=== PATIENT | male | born 1930 | race Caucasian/White ===

== ENCOUNTER 2016-09-28 05:22 | Inpatient (IN) | payer OTHER, BC ==
[2016-09-24 10:35] VITALS: BMI 26.5
[2016-09-27 13:40] LABS: BASOPHIL 0.6 % (0-2.0); EOSINOPHIL 3.2 % (0-4.5); MCH 31.8 pg (25.7-33.7); MCHC 33.4 g/dl (32.0-35.9); MEAN CELL VOLUME 95.3 fl (80-96); MEAN PLT VOLUME 6.6 fl (7.5-11.1); NEUTROPHILS 74.2 % (42.8-82.8); PLATELET COUNT 159 K/MM3 (134-434); RDW 15.2 % (11.9-15.9); WHITE BLOOD COUNT 5.9 K/mm3 (4.0-10.0)
[2016-09-27 13:53] LABS: INR 1.08 (0.82-1.09); PROTHROMBIN TIME (PATIENT) 11.9 SEC (9.98-11.88)
[2016-09-27 14:18] LABS: ALBUMIN 3.5 g/dl (3.4-5.0); BILIRUBIN,TOTAL 0.5 mg/dL (0.2-1.0); CALCIUM 9.1 mg/dL (8.5-10.1); COCKROFT - GAULT 47.51; CREATININE 1.3 mg/dL (0.7-1.3); TOT PROT 6.5 g/dl (6.4-8.2)
[2016-09-28] MEDS ORDERED: MINERAL OIL 25 ML OIL ONE (11:50)
--- NOTE | 2016-09-28 12:22 | HP ---
History & Physical Update - History History: No Change - Physical Physical: No Change - Assessment Assessment: No Change - Plan Plan: No Change (Patient to undergo surgical procedure Debridement of sacral decubitus and flap closure with possible skin grafting)
[2016-09-28] MEDS ORDERED: MIDAZOLAM HCL 2 MG/2 ML SINGLE DOSE VIAL ONE (12:23)
[2016-09-28] MEDS ORDERED: PROPOFOL 20 ML ONE (12:24)
--- NOTE | 2016-09-28 12:28 | HP ---
Admitting History and Physical - Admission Chief Complaint: Grade IV sacral decubitus History Source: Patient - Smoking History Smoking history: Former smoker Have you smoked in the past 12 months: No - Alcohol/Substance Use Hx Alcohol Use: No Home Medications - Allergies Allergies/Adverse Reactions: Allergies Allergy/AdvReac Type Severity Reaction Status Date / Time No Known Allergies Allergy Verified 01/23/16 16:13 - Home Medications Home Medications: Ambulatory Orders Metoprolol Succinate [Toprol Xl] 50 mg PO DAILY 01/23/16 Nitroglycerin Patch [Nitro-Dur] 1 each TD DAILY 01/23/16 Ranolazine [Ranexa] 1 tab PO BID 01/23/16 Rosuvastatin Calcium [Crestor] 20 mg PO DAILY 01/23/16 Ferrous Sulfate 1 tab PO TID 05/26/16 Ascorbate Calcium [Vitamin C] 1,000 mg PO DAILY 09/24/16 Aspirin [ASA -] 81 mg PO DAILY 09/24/16 Folic Acid 0.4 mg PO DAILY 09/24/16 Physical Examination Vital Signs: Vital Signs Temperature 97.4 F L 09/28/16 10:05 Pulse Rate 60 09/28/16 10:05 Respiratory Rate 20 09/28/16 10:05 Blood Pressure 114/63 09/28/16 10:05 O2 Sat by Pulse Oximetry (%) 100 09/28/16 10:05 Labs: CBC, BMP 09/27/16 13:32 09/27/16 13:32 Assessment/Plan 86 year old with chronic Ulcer over the sacrum, non healing even after wound care for over 6 months, patient is ambulatory. Surgery needed to close the defect and hospital care till drainage decreases, need IV antibiotics for multiple factors including chronic wound, near anal area , SOCRATES in surgical site, elderly /age, chances of infection high, high risk patient with cardiac conditions
--- NOTE | 2016-09-28 12:28 | HP ---
Admitting History and Physical - Admission Chief Complaint: Non Healing Grade IV sacral decubitus History of Present Illness: 86 year old pleasant male with Grade IV sacral decubitus for over a year. Treated at [facility] Wound clinic with minimal progress. Patient scheduled for Excisional debridement of sacral decubitus and reconstruction with local flap and possible skin graft History Source: Patient Limitations to Obtaining History: No Limitations - Smoking History Smoking history: Former smoker Have you smoked in the past 12 months: No - Alcohol/Substance Use Hx Alcohol Use: No Home Medications - Allergies Allergies/Adverse Reactions: Allergies Allergy/AdvReac Type Severity Reaction Status Date / Time No Known Allergies Allergy Verified 01/23/16 16:13 - Home Medications Home Medications: Ambulatory Orders Metoprolol Succinate [Toprol Xl] 50 mg PO DAILY 01/23/16 Nitroglycerin Patch [Nitro-Dur] 1 each TD DAILY 01/23/16 Ranolazine [Ranexa] 1 tab PO BID 01/23/16 Rosuvastatin Calcium [Crestor] 20 mg PO DAILY 01/23/16 Ferrous Sulfate 1 tab PO TID 05/26/16 Ascorbate Calcium [Vitamin C] 1,000 mg PO DAILY 09/24/16 Aspirin [ASA -] 81 mg PO DAILY 09/24/16 Folic Acid 0.4 mg PO DAILY 09/24/16 Physical Examination Vital Signs: Vital Signs Temperature 97.4 F L 09/28/16 10:05 Pulse Rate 60 09/28/16 10:05 Respiratory Rate 20 09/28/16 10:05 Blood Pressure 114/63 09/28/16 10:05 O2 Sat by Pulse Oximetry (%) 100 09/28/16 10:05 Labs: CBC, BMP 09/27/16 13:32 09/27/16 13:32
[2016-09-28] MEDS ORDERED: LIDOCAINE HCL/PF 2% SDV 5ML VIAL ONE (12:36)
[2016-09-28] MEDS ORDERED: SODIUM CHLORIDE 0.9% P/F 10 ML VIAL IJ ONE (12:42)
[2016-09-28] MEDS ORDERED: ceFAZolin SODIUM 1 GM VIAL ONE (12:42)
[2016-09-28] MEDS ORDERED: ceFAZolin SODIUM 1 GM VIAL IVPB ONE (12:43)
[2016-09-28] MEDS ORDERED: DEXAMETHASONE SOD PHOSPHATE 4 MG/1 ML VIAL ONE (12:43)
[2016-09-28] MEDS ORDERED: BUPIVACAINE HCL/PF 0.25% (2.5MG/ML) 10 ML VIAL IJ ONE (13:16)
[2016-09-28] MEDS ORDERED: LIDOCAINE 1%/EPI 1:100000 (50 ML MULTI DOSE VIAL) PNB ONE (13:16)
[2016-09-28] MEDS ORDERED: LIDOCAINE HCL 1%, 10 MG/ML (20ML VIAL) IJ ONE ×2 (13:29)
--- NOTE | 2016-09-28 14:26 | PN ---
Teaching Attending Note Name of Resident: Scarlet Coker ATTENDING PHYSICIAN STATEMENT I saw and evaluated the patient. I reviewed the resident's note and discussed the case with the resident. I agree with the resident's findings and plan as documented. SUBJECTIVE: The patient is an 86 year old male with a significant past medical history of hypertension, hyperlipidemia, coronoary artery disease and a Grade IV sacral pressure ulcer for over a year, who is POD#0 s/p excisional debridement of sacral pressure ulcer and reconstruction with flap placement. OBJECTIVE: Vitals noted He is well appearing and in no acute distress See resident note for full exam ASSESSMENT AND PLAN: Post-operative care per Dr. Gould Will continue home medications for HTN, HLP, CAD See resident note for full details
[2016-09-28] MEDS ORDERED: METOPROLOL TARTRATE 5 MG/5 ML VIAL ONE (14:38)
[2016-09-28] MEDS ORDERED: ONDANSETRON 4 MG/2 ML VIAL IVPUSH PRN ×2 (15:01→16:48)
[2016-09-28] MEDS ORDERED: PROMETHAZINE HCL 25 MG/1 ML VIAL IVPUSH PRN ×2 (15:01→16:48)
[2016-09-28] MEDS ORDERED: LACTATED RINGERS SOLUTION 1,000 ML IV SCH ×2 (15:15→16:48)
[2016-09-28] MEDS: LABETALOL HCL 5 MG/1 ML (100MG/20 ML VIAL) IVPUSH PRN ×2 (15:15→15:40)
[2016-09-28] MEDS ORDERED: LABETALOL HCL 5 MG/1 ML (100MG/20 ML VIAL) IVPUSH ONE ×2 (15:45→16:48)
--- NOTE | 2016-09-28 16:47 | HP ---
CHIEF COMPLAINT: "i just had surgery" PCP: HISTORY OF PRESENT ILLNESS: This is an 86 yo M with PMH of chronic sacral ulcer, CAD s/p 2c CABG 2005 and stend 2013, thn, hld, prostate CA sp prostatectomy, who presented for debridement of sacral decubitus ulcer with a skin flap closure. Ulcer has been in place for 70 years due to a recurrent cyst in the area. It was grave IV in OR but not acutely infected. surgery went well w/o complications. Patients mobility status is ambulation with walker around the house. ies angina, orthopnea or palpitations. Recent Travel: denies PAST MEDICAL HISTORY: as above PAST SURGICAL HISTORY: CABG and coronary stent, hernia repair, Knee surgery, prostatectomy 2000 Social History: lives at home with Smoking: past smoker pack a day for 5 years as a teenager Alcohol: denies Drugs: denies Family History: AAA father, stomach CA mother. Allergies No Known Allergies Allergy (Verified 01/23/16 16:13) HOME MEDICATIONS: Home Medications Medication Instructions Recorded Metoprolol Succinate [Toprol Xl] 50 mg PO DAILY 01/23/16 Nitroglycerin Patch [Nitro-Dur] 1 each TD DAILY 01/23/16 Ranolazine [Ranexa] 1 tab PO BID 01/23/16 Rosuvastatin Calcium [Crestor] 20 mg PO DAILY 01/23/16 Ferrous Sulfate 1 tab PO TID 05/26/16 Ascorbate Calcium [Vitamin C] 1,000 mg PO DAILY 09/24/16 Aspirin [ASA -] 81 mg PO DAILY 09/24/16 Folic Acid 0.4 mg PO DAILY 09/24/16 REVIEW OF SYSTEMS CONSTITUTIONAL: Absent: fever, chills, diaphoresis, generalized weakness, malaise, loss of appetite, weight change HEENT: Absent: rhinorrhea, nasal congestion, throat pain CARDIOVASCULAR: Absent: chest pain, syncope, palpitations, irregular heart rate, lightheadedness , peripheral edema RESPIRATORY: Absent: cough, shortness of breath, orthopnea GASTROINTESTINAL: Absent: abdominal pain, abdominal distension, nausea, vomiting, diarrhea GENITOURINARY: Absent: dysuria MUSCULOSKELETAL: Absent: myalgia, arthralgia SKIN: Absent: rash, HEMATOLOGIC/IMMUNOLOGIC: Absent: easy bleeding, easy bruising ENDOCRINE: Absent: unexplained weight gain, unexplained weight loss NEUROLOGIC: Absent: headache, focal weakness or paresthesias, dizziness PSYCHIATRIC: Absent: anxiety PHYSICAL EXAMINATION Vital Signs - 24 hr 09/28/16 10:05 Temperature 97.4 F L Pulse Rate 60 Respiratory 20 Rate Blood Pressure 114/63 O2 Sat by Pulse 100 Oximetry (%) GENERAL: Awake, alert, and fully oriented, in no acute distress. HEAD: Normal with no signs of trauma. EYES: Pupils equal, round and reactive to light, extraocular movements intact, sclera anicteric, conjunctiva clear. No lid lag. EARS, NOSE, THROAT: Moist mucous membranes. NECK: supple without JVD LUNGS: Breath sounds equal, clear to auscultation bilaterally HEART: Regular rate and rhythm, normal S1 and S2 ABDOMEN: Soft, nontender, not distended, normoactive bowel sounds MUSCULOSKELETAL: No CVA tenderness. clean dressing on decubitus region. SOCRATES in place. UPPER EXTREMITIES: 2+ pulses, warm, well-perfused. No cyanosis. No clubbing. No peripheral edema. LOWER EXTREMITIES: 2+ pulses, warm, well-perfused. No calf tenderness. No peripheral edema. NEUROLOGICAL: Cranial nerves II-XII intact. Normal speech. PSYCHIATRIC: Cooperative. Good eye contact. Appropriate mood and affect. SKIN: Warm, dry ASSESSMENT/PLAN: This is an 86 yo M with PMH of chronic sacral ulcer, CAD s/p 2c CABG 2005 and stend 2013, thn, hld, prostate CA sp prostatectomy, who presented for debridement of sacral decubitus ulcer with a skin flap closure. Chronic stave IV sacral gecubitus ulcer -day 0 s/o surgical debridement with skin flap closure -not infected so sultures not sent -rocephin -low res diet -SOCRATES emptying q shift -monitor h/h -percocet for pain CAD -Asa 81 -NTG patch prn HTN -resume toprol xl 50 d -labetalol PRN for systolic BP >150 HLD resume lipitor 20 hs PPX Hep Dispo: obs med kwan Problem List - Problem (1) Sacral decubitus ulcer, stage IV Code(s): L89.154 - PRESSURE ULCER OF SACRAL REGION, STAGE 4 (2) CAD (coronary artery disease) Code(s): I25.10 - ATHSCL HEART DISEASE OF [place] CORONARY ARTERY W/O ANG PCTRS (3) HTN (hypertension) Code(s): I10 - ESSENTIAL (PRIMARY) HYPERTENSION (4) HLD (hyperlipidemia) Code(s): E78.5 - HYPERLIPIDEMIA, UNSPECIFIED Visit type - Emergency Visit Emergency Visit: No - New Patient This patient is new to me today: Yes Date on this admission: 09/28/16 - Critical Care Critical Care patient: No
[2016-09-28] MEDS ORDERED: OXYCODONE/APAP 5/325MG COMBO TABLET PO PRN (16:59)
[2016-09-28] MEDS ORDERED: ACETAMINOPHEN 325 MG TABLET (FP) PO PRN (17:21)
[2016-09-28] MEDS ORDERED: oxyCODONE HCL 5 MG TABLET PO PRN (17:21)
[2016-09-28] MEDS ORDERED: CEFAZOLIN (PRE-DOCKED) 50 ML IVPB ONE ×2 (17:41→23:22)
[2016-09-28] MEDS: CEFAZOLIN 1 GM/D5W 50 ML IVPB SCH (17:51)
[2016-09-28] MEDS ORDERED: RANOLAZINE E.R. 500 MG TABLET (FP) ONE (20:10)
[2016-09-28] MEDS: LACTATED RINGERS SOLUTION 1,000 ML IV SCH (21:59)
[2016-09-28] MEDS ORDERED: HEPARIN NA (PORCINE) 5,000 UNITS/ML 1ML VIAL SQ SCH (22:00)
--- NOTE | 2016-09-28 22:59 | EKG ---
Test Reason : Blood Pressure : / mmHG Vent. Rate : 066 BPM Atrial Rate : 234 BPM P-R Int : 000 ms QRS Dur : 086 ms QT Int : 428 ms P-R-T Axes : 000 020 043 degrees QTc Int : 448 ms PROBABLE SINUS RHYTHM ABNORMAL ECG NO PREVIOUS ECGS AVAILABLE Confirmed by GINGER MILLER MD ([id number]) on 09/28/2016 10:59:35 PM Referred By: JOHNSON ORO Confirmed By:GINGER MILLER MD
[2016-09-28] MEDS: RANOLAZINE E.R. 1,000 MG TABLET (FP) PO SCH (23:14)
[2016-09-28] MEDS: HEPARIN NA (PORCINE) 5,000 UNITS/ML 1ML VIAL SQ SCH (23:15)
[2016-09-28] MEDS: ROSUVASTATIN CA 10 MG TABLET (FP) PO SCH (23:29)
[2016-09-29] MEDS: CEFAZOLIN 1 GM/D5W 50 ML IVPB SCH (02:46)
[2016-09-29] MEDS: HEPARIN NA (PORCINE) 5,000 UNITS/ML 1ML VIAL SQ SCH ×2 (06:59→14:20)
[2016-09-29 07:52] LABS: MCH 32.6 pg (25.7-33.7); MCHC 34.5 g/dl (32.0-35.9); MEAN CELL VOLUME 94.5 fl (80-96); MEAN PLT VOLUME 7.4 fl (7.5-11.1); PLATELET COUNT 141 K/MM3 (134-434); RDW 14.9 % (11.9-15.9); WHITE BLOOD COUNT 8.4 K/mm3 (4.0-10.0)
[2016-09-29] MEDS: LACTATED RINGERS SOLUTION 1,000 ML IV SCH ×2 (08:01→18:15)
[2016-09-29 08:23] LABS: CALCIUM 8.1 mg/dL (8.5-10.1); COCKROFT - GAULT 61.77; PHOSPHOROUS 3.3 mg/dL (2.5-4.9)
[2016-09-29] MEDS ORDERED: RANOLAZINE E.R. 500 MG TABLET (FP) ONE ×2 (09:08→22:03)
[2016-09-29] MEDS ORDERED: PT OWN MED DRAWER 7, Y5N ONE ×2 (09:08→09:19)
[2016-09-29] MEDS: METOPROLOL SUCCINATE 50 MG TAB.SR.24H (FP) PO SCH (09:13)
[2016-09-29] MEDS: RANOLAZINE E.R. 1,000 MG TABLET (FP) PO SCH ×2 (09:13→22:06)
[2016-09-29] MEDS: ASPIRIN 81 MG CHEWABLE TABLETS PO SCH (09:14)
[2016-09-29] MEDS: NITROGLYCERIN 0.4 MG/HOUR TD PATCH TD SCH (09:14)
[2016-09-29] MEDS: CEFAZOLIN (PRE-DOCKED) 50 ML IVPB SCH ×2 (10:22→17:28)
--- NOTE | 2016-09-29 11:09 | PN ---
Progress Note (short form) - Note Progress Note: ANESTHESIOLOGY POST-OP CHECK 86M s/p sacral decubitus ulcer debridement and flap closure under general anesthesia, POD #1. No acute complaints. Denies pain, N/V. Tolerating PO, voiding. Vital Signs Temperature 98.4 F 09/29/16 06:00 Pulse Rate 75 09/29/16 06:00 Respiratory Rate 20 09/29/16 06:00 Blood Pressure 128/71 09/29/16 06:00 O2 Sat by Pulse Oximetry (%) 100 09/29/16 00:57 Active Medications Acetaminophen (Tylenol -) 325 mg PO Q6H PRN PRN Reason: PAIN Aspirin (Asa -) 81 mg PO DAILY [facility] Last Admin: 09/29/16 09:14 Dose: 81 mg Heparin Sodium (Porcine) (Heparin -) 5,000 unit SQ TID [facility] Last Admin: 09/29/16 06:59 Dose: 5,000 unit Lactated Ringer's (Lactated Ringers Solution) 1,000 mls @ 60 mls/hr IV ASDIR [facility] Last Admin: 09/29/16 08:01 Dose: 60 mls/hr Cefazolin Sodium (Ancef 1gm Ivpb (Pre-Docked)) 50 mls @ 100 mls/hr IVPB Q8H-IV [facility] Last Admin: 09/29/16 10:22 Dose: 100 mls/hr Labetalol HCl (Normodyne Injection -) 10 mg IVPUSH Q4H PRN PRN Reason: HYPERTENSION Last Admin: 09/28/16 15:40 Dose: 5 mg Metoprolol Succinate (Toprol Xl -) 50 mg PO DAILY [facility] Last Admin: 09/29/16 09:13 Dose: 50 mg Nitroglycerin (Nitro-Dur Patch -) 0.4 mg TD DAILY [facility] Last Admin: 09/29/16 09:14 Dose: 0.4 mg Oxycodone HCl (Roxicodone -) 5 mg PO Q6H PRN PRN Reason: PAIN SCALE 6-10 Last Admin: 09/28/16 23:25 Dose: 5 mg Ranolazine (Ranexa -) 1,000 mg PO BID [facility] Last Admin: 09/29/16 09:13 Dose: 1,000 mg Rosuvastatin Calcium (Crestor -) 20 mg PO HS [facility] Last Admin: 09/28/16 23:29 Dose: 20 mg Gen: Awake, alert No apparent anesthesia complications. Pain well controlled. Continue management as per primary team.
--- NOTE | 2016-09-29 14:16 | PN ---
Progress Note (short form) - Note Progress Note: Post Day 1 Awake awake, not in pain Slipped while standing on to bed No c/o pain Wound evaluated : suture line intact SOCRATES drainage noted 20+20+40+25 active Plan : Hold Heparin Avoid sitting stay on sides
--- NOTE | 2016-09-29 15:23 | PN ---
Physical Exam: SUBJECTIVE: Patient seen and examined Patient resting in bed NAD. afebrile and hemodynamically stable. no events. Denies pain. ambulating, good appetite. Denies sob, throat pain, chest pain, n/v , diarrhea, f/c. OBJECTIVE: Vital Signs Period Temp Pulse Resp BP Sys/Beaver Pulse Ox Last 24 Hr 96.1 F-98.7 F 62-75 16-20 122-167/68-95 99-100 GENERAL: Awake, alert, and fully oriented, in no acute distress. HEAD: Normal with no signs of trauma. EYES: Pupils equal, round and reactive to light, extraocular movements intact, sclera anicteric, conjunctiva clear. No lid lag. EARS, NOSE, THROAT: Moist mucous membranes. NECK: supple without JVD LUNGS: Breath sounds equal, clear to auscultation bilaterally HEART: Regular rate and rhythm, normal S1 and S2 ABDOMEN: Soft, nontender, not distended, normoactive bowel sounds MUSCULOSKELETAL: No CVA tenderness. clean dressing on decubitus region. SOCRATES in place with minimal sanguineous output. UPPER EXTREMITIES: 2+ pulses, warm, well-perfused. No cyanosis. No clubbing. No peripheral edema. LOWER EXTREMITIES: 2+ pulses, warm, well-perfused. No calf tenderness. No peripheral edema. NEUROLOGICAL: Cranial nerves II-XII intact. Normal speech. PSYCHIATRIC: Cooperative. Good eye contact. Appropriate mood and affect. SKIN: Warm, dry Laboratory Results - last 24 hr 09/29/16 09/29/16 06:30 06:30 WBC 8.4 D RBC 3.09 L Hgb 10.1 L D Hct 29.2 L D MCV 94.5 MCHC 34.5 RDW 14.9 Plt Count 141 MPV 7.4 L D Sodium 137 Potassium 4.9 Chloride 102 Carbon Dioxide 24 Anion Gap 11 BUN 23 H Creatinine 1.0 D Random Glucose 99 Calcium 8.1 L Phosphorus 3.3 Magnesium 2.0 Active Medications Generic Name Dose Route Start Last Admin Trade Name Freq PRN Reason Stop Dose Admin Acetaminophen 325 mg 09/28/16 17:21 Tylenol - PO Q6H PRN PAIN Aspirin 81 mg 09/29/16 10:00 09/29/16 09:14 Asa - PO 81 mg DAILY BRAULIO Administration Lactated Ringer's 1,000 mls @ 60 mls/hr 09/28/16 18:15 09/29/16 08:01 Lactated Ringers Solution IV 60 mls/hr ASDIR B[facility]ULIO Administration Cefazolin Sodium 50 mls @ 100 mls/hr 09/29/16 09:13 09/29/16 10:22 Ancef 1gm Ivpb (Pre-Docked) IVPB 100 mls/hr Q8H-IV [facility]IO Administration Labetalol HCl 10 mg 09/28/16 16:50 09/28/16 15:40 Normodyne Injection - IVPUSH 5 mg Q4H PRN Administration HYPERTENSION Metoprolol Succinate 50 mg 09/29/16 10:00 09/29/16 09:13 Toprol Xl - PO 50 mg DAILY BRAULIO Administration Nitroglycerin 0.4 mg 09/29/16 10:00 09/29/16 09:14 Nitro-Dur Patch - TD 0.4 mg DAILY BRAULIO Administration Oxycodone HCl 5 mg 09/28/16 17:21 09/28/16 23:25 Roxicodone - PO 5 mg Q6H PRN Administration PAIN SCALE 6-10 Ranolazine 1,000 mg 09/28/16 22:00 09/29/16 09:13 Ranexa - PO 1,000 mg BID BRAULIO Administration Rosuvastatin Calcium 20 mg 09/28/16 22:00 09/28/16 23:29 Crestor - PO 20 mg HS BRAULIO Administration ASSESSMENT/PLAN: This is an 86 yo M with PMH of chronic sacral ulcer, CAD s/p 2c CABG 2005 and stend 2013, thn, hld, prostate CA sp prostatectomy, who presented for debridement of sacral decubitus ulcer with a skin flap closure. Chronic stave IV sacral gecubitus ulcer -POD1 s/o surgical debridement with skin flap closure -h/h stable -IV cefazolin day 2 -low res diet -SOCRATES emptying q shift: 40 cc of sanguineous fluid per shift -to lie on side and not flat on back. -hold heparin -percocet for pain CAD -Asa 81 -NTG patch prn HTN -toprol xl 50 d HLD lipitor 20 hs PPX scd Dispo: [facility] Problem List - Problems (1) Sacral decubitus ulcer, stage IV Code(s): L89.154 - PRESSURE ULCER OF SACRAL REGION, STAGE 4 (2) CAD (coronary artery disease) Code(s): I25.10 - ATHSCL HEART DISEASE OF [place] CORONARY ARTERY W/O ANG PCTRS (3) HTN (hypertension) Code(s): I10 - ESSENTIAL (PRIMARY) HYPERTENSION (4) HLD (hyperlipidemia) Code(s): E78.5 - HYPERLIPIDEMIA, UNSPECIFIED Visit type - Emergency Visit Emergency Visit: No - New Patient This patient is new to me today: No - Critical Care Critical Care patient: No - Discharge Referral Referred to [facility] No
--- NOTE | 2016-09-29 16:25 | OP ---
DATE OF OPERATION: 09/28/2016 PREOPERATIVE DIAGNOSIS: Chronic wound grade 4 sacral decubitus ulcer. POSTOPERATIVE DIAGNOSIS: Chronic wound, sacral area, with excessive scar tissue. PROCEDURE: 1. Excision, sacral decubitus ulcer. 2. Reconstruction with a fasciocutaneous flap. SURGEON: Adalgisa Oro MD ANESTHESIA: General. HISTORY: The patient is an 86-year-old male seen in Wound Clinic for the last 6 months, has a chronic non-healing wound for the last 1 year. Patient, during his treatments in the Wound Clinic has undergone serial debridement including skin grafting, failed, including VAC, which did not succeed due to the very close proximity to anal area. Wound has been stuck in its present size for the last 3 months. PROCEDURE: Patient was brought to the operating room, transferred over to the table. At this time, time-out procedure was carried out. Once agreed, patient was turned to right lateral position on a beanbag. Area of lower back was washed and cleaned with Betadine soap and solution and then draped in a standard aseptic manner. Markings had been carried out prior to giving local anesthetic consisting of 1% lidocaine with epinephrine with 0.25% Marcaine, total of 40 mL was injected into the subcutaneous tissue in the sacral area. A 10 scalpel blade was used to excise the ulcer down to the periosteum. Excessive scar tissue was present in the entire sacral area, preventing the ulcer from healing. Hemostasis was secured with electrocautery. Dissection was carried out with 10 scalpel blade. A fasciocutaneous flap was then designed on his left buttock and gluteus vinny muscle. Fascia covering the vinny was then dissected off the muscle and rotated into a transposition flap. Defect measured over 8 x 5 cm x 3.5 cm in depth. Clinically there was no infection except for excessive scarring. A multilayered closure was undertaken for the fasciocutaneous flap using 0 Vicryl followed by 3-0 Vicryl. Final closure was with Dermabond. A SOCRATES drain was applied in the depth of the pocket and brought from the lowermost incision line. It was secured with 0 Prolene. Estimated blood loss was less than 50 mL. At the end of the procedure, suture and instrument recount was correct. The total surface area covered by the flap was over 20 cm sq. At the end of the procedure, circulation to the flap was satisfactory. Patient was transferred to a low-pressure bed and extubated, sent to the recovery room in a stable condition. He was given 1 g of Ancef prior to the surgery. ADALGISA ORO M.D. [id number]
--- NOTE | 2016-09-29 18:06 | PN ---
Teaching Attending Note Name of Resident: Scarlet Coker ATTENDING PHYSICIAN STATEMENT I saw and evaluated the patient. I reviewed the resident's note and discussed the case with the resident. I agree with the resident's findings and plan as documented. SUBJECTIVE: no fever or chills, no abd pain , no SOB , no CP . OBJECTIVE: NAD CV : RRR lungs : CTAB ext : no edema Sacral area with a clean dressing with SOCRATES drainage . ASSESSMENT AND PLAN: 86 y/o man with h/o HTN, HLP, CAD s/p CABG who presented with sacral decub ulcer and had flap reconstruction sx 1- Excision of stage IV decub ulcer with reconstruction with flap . POD 1 . doing well . wound care by Dr. Crespo. pain control Abx per surgery hold heparin due to bloody discharge IVF , might dc tomorrow 2- H/o HTN, HLP, CAD : cont home meds
[2016-09-29] MEDS: ROSUVASTATIN CA 10 MG TABLET (FP) PO SCH (22:05)
[2016-09-30] MEDS: CEFAZOLIN (PRE-DOCKED) 50 ML IVPB SCH ×3 (01:20→17:58)
[2016-09-30] MEDS: LACTATED RINGERS SOLUTION 1,000 ML IV SCH ×2 (01:44→17:58)
[2016-09-30 07:24] LABS: MCH 33.2 pg (25.7-33.7); MCHC 35.1 g/dl (32.0-35.9); MEAN CELL VOLUME 94.7 fl (80-96); MEAN PLT VOLUME 7.6 fl (7.5-11.1); PLATELET COUNT 118 K/MM3 (134-434); RDW 15.4 % (11.9-15.9); WHITE BLOOD COUNT 6.6 K/mm3 (4.0-10.0)
[2016-09-30] MEDS ORDERED: RANOLAZINE E.R. 500 MG TABLET (FP) ONE ×2 (09:28→21:07)
[2016-09-30] MEDS ORDERED: PT OWN MED DRAWER 7, Y5N ONE (09:29)
[2016-09-30] MEDS: RANOLAZINE E.R. 1,000 MG TABLET (FP) PO SCH ×2 (09:51→21:11)
[2016-09-30] MEDS: ASPIRIN 81 MG CHEWABLE TABLETS PO SCH (09:51)
[2016-09-30] MEDS: METOPROLOL SUCCINATE 50 MG TAB.SR.24H (FP) PO SCH (09:52)
[2016-09-30] MEDS: NITROGLYCERIN 0.4 MG/HOUR TD PATCH TD SCH (09:52)
--- NOTE | 2016-09-30 13:22 | PN ---
Teaching Attending Note Name of Resident: Scarlet Coker ATTENDING PHYSICIAN STATEMENT I saw and evaluated the patient. I reviewed the resident's note and discussed the case with the resident. I agree with the resident's findings and plan as documented. SUBJECTIVE: no fever or chills, no abd pain, no SOB or CP . pain is controlled with pain meds OBJECTIVE: NAD CV : RRR Lungs : CTAB Ext : no edema Sacral area with a clean dressing with SOCRATES drainage full of sanguinous fluid . ASSESSMENT AND PLAN: 86 y/o man with h/o HTN, HLP, CAD s/p CABG who presented with sacral decub ulcer and had flap reconstruction sx 1- Excision of stage IV decub ulcer with flap reconstruction. POD 2. wound care by Dr. Crespo. pain control Abx per surgery hold heparin due to bloody discharge dc IVF 2- H/o HTN, HLP, CAD: cont home meds
--- NOTE | 2016-09-30 13:59 | PN ---
Physical Exam: SUBJECTIVE: Patient seen and examined Patient resting in bed NAD. afebrile and hemodynamically stable. no events. SOCRATES output 115 yesterday and 55 overnight. Denies pain. ambulating, good appetite. Denies sob, throat pain, chest pain, n/v, diarrhea, f/c. OBJECTIVE: Vital Signs Period Temp Pulse Resp BP Sys/Beaver Pulse Ox Last 24 Hr 97.4 F-98.4 F 62-70 18-20 83-116/49-66 99-99 GENERAL: Awake, alert, and fully oriented, in no acute distress. HEAD: Normal with no signs of trauma. EYES: Pupils equal, round and reactive to light, extraocular movements intact, sclera anicteric, conjunctiva clear. No lid lag. EARS, NOSE, THROAT: Moist mucous membranes. NECK: supple without JVD LUNGS: Breath sounds equal, clear to auscultation bilaterally HEART: Regular rate and rhythm, normal S1 and S2 ABDOMEN: Soft, nontender, not distended, normoactive bowel sounds MUSCULOSKELETAL: No CVA tenderness. clean dressing on decubitus region. SOCRATES in place with sero sanguineous output. UPPER EXTREMITIES: 2+ pulses, warm, well-perfused. No cyanosis. No clubbing. No peripheral edema. LOWER EXTREMITIES: 2+ pulses, warm, well-perfused. No calf tenderness. No peripheral edema. NEUROLOGICAL: Cranial nerves II-XII intact. Normal speech. PSYCHIATRIC: Cooperative. Good eye contact. Appropriate mood and affect. SKIN: Warm, dry Laboratory Results - last 24 hr 09/30/16 06:10 WBC 6.6 RBC 2.91 L Hgb 9.7 L Hct 27.5 L MCV 94.7 MCHC 35.1 RDW 15.4 Plt Count 118 L MPV 7.6 Active Medications Generic Name Dose Route Start Last Admin Trade Name Freq PRN Reason Stop Dose Admin Acetaminophen 325 mg 09/28/16 17:21 Tylenol - PO Q6H PRN PAIN Aspirin 81 mg 09/29/16 10:00 09/30/16 09:51 Asa - PO 81 mg DAILY BRAULIO Administration Lactated Ringer's 1,000 mls @ 60 mls/hr 09/28/16 18:15 09/30/16 01:44 Lactated Ringers Solution IV 60 mls/hr ASDIR BRAULIO Administration Cefazolin Sodium 50 mls @ 100 mls/hr 09/29/16 09:13 09/30/16 09:51 Ancef 1gm Ivpb (Pre-Docked) IVPB 100 mls/hr Q8H-IV BRAULIO Administration Metoprolol Succinate 50 mg 09/29/16 10:00 09/30/16 09:52 Toprol Xl - PO 50 mg DAILY BRAULIO Administration Nitroglycerin 0.4 mg 09/29/16 10:00 09/30/16 09:52 Nitro-Dur Patch - TD Not Given DAILY BRAULIO Oxycodone HCl 5 mg 09/28/16 17:21 09/28/16 23:25 Roxicodone - PO 5 mg Q6H PRN Administration PAIN SCALE 6-10 Ranolazine 1,000 mg 09/28/16 22:00 09/30/16 09:51 Ranexa - PO 1,000 mg BID BRAULIO Administration Rosuvastatin Calcium 20 mg 09/28/16 22:00 09/29/16 22:05 Crestor - PO 20 mg HS BRAULIO Administration ASSESSMENT/PLAN: This is an 86 yo M with PMH of chronic sacral ulcer, CAD s/p 2c CABG 2005 and stend 2013, thn, hld, prostate CA sp prostatectomy, who presented for debridement of sacral decubitus ulcer with a skin flap closure. Chronic stave IV sacral gecubitus ulcer -POD2 s/o surgical debridement with skin flap closure -h/h stable -IV cefazolin day 2 -low res diet -SOCRATES emptying q shift: 55 cc of serosanguineous fluid overnight, 115 cc yesterday -to lie on side and not flat on back. -heparin held -percocet for pain -can stop IVF CAD -Asa 81 -NTG patch prn HTN -toprol xl 50 d HLD lipitor 20 hs PPX scd Dispo: [facility] Problem List - Problems (1) Sacral decubitus ulcer, stage IV Code(s): L89.154 - PRESSURE ULCER OF SACRAL REGION, STAGE 4 (2) CAD (coronary artery disease) Code(s): I25.10 - ATHSCL HEART DISEASE OF [place] CORONARY ARTERY W/O ANG PCTRS (3) HTN (hypertension) Code(s): I10 - ESSENTIAL (PRIMARY) HYPERTENSION (4) HLD (hyperlipidemia) Code(s): E78.5 - HYPERLIPIDEMIA, UNSPECIFIED Visit type - Emergency Visit Emergency Visit: Yes ED Registration Date: 09/28/16 Care time: The patient presented to the Emergency Department on the above date and was hospitalized for further evaluation of their emergent condition. - New Patient This patient is new to me today: No - Critical Care Critical Care patient: No - Discharge Referral Referred to [facility] No
--- NOTE | 2016-09-30 15:01 | PN ---
Progress Note (short form) - Note Progress Note: Post flap closure sacral decubitus Awake alert , not in pain, SOCRATES still draining active Dressing changed...Suture line intact, no hematoma, no erythema Low BP Hb has decreased Plan Will T&C one unit of blood Repeat h&H in Am Start iron Clinically : No distress no syncope, no chest pain no problem breathing Needs close observation
[2016-09-30] MEDS ORDERED: LACTATED RINGERS SOLUTION 1,000 ML IV SCH (15:45)
[2016-09-30] MEDS: ROSUVASTATIN CA 10 MG TABLET (FP) PO SCH (21:10)
[2016-10-01] MEDS: CEFAZOLIN (PRE-DOCKED) 50 ML IVPB SCH ×3 (01:22→17:48)
[2016-10-01] MEDS: LACTATED RINGERS SOLUTION 1,000 ML IV SCH (03:27)
[2016-10-01 08:25] LABS: MCH 32.4 pg (25.7-33.7); MCHC 34.4 g/dl (32.0-35.9); MEAN CELL VOLUME 94.2 fl (80-96); MEAN PLT VOLUME 7.6 fl (7.5-11.1); PLATELET COUNT 139 K/MM3 (134-434); WHITE BLOOD COUNT 7.7 K/mm3 (4.0-10.0)
[2016-10-01] MEDS ORDERED: RANOLAZINE E.R. 500 MG TABLET (FP) ONE ×2 (09:14→21:32)
[2016-10-01] MEDS: ASPIRIN 81 MG CHEWABLE TABLETS PO SCH (09:35)
[2016-10-01] MEDS: METOPROLOL SUCCINATE 50 MG TAB.SR.24H (FP) PO SCH (09:35)
[2016-10-01] MEDS: RANOLAZINE E.R. 1,000 MG TABLET (FP) PO SCH ×2 (09:35→21:35)
[2016-10-01] MEDS: NITROGLYCERIN 0.4 MG/HOUR TD PATCH TD SCH (09:41)
[2016-10-01] MEDS ORDERED: DOCUSATE SODIUM 100 MG CAPSULE (FP) PO PRN (13:06)
[2016-10-01] MEDS ORDERED: POLYETHYLENE GLYCOL 3350 119 GM BTL PO ONE (13:07)
[2016-10-01] MEDS: SODIUM CHLORIDE 1,000 ML IV SCH (14:56)
--- NOTE | 2016-10-01 15:13 | PN ---
Physical Exam: SUBJECTIVE: Patient seen and examined at bedside this morning. Patient mentioned he hasn't moved his bowel since admission. No other complaints. Denies chest pain, sob, cough, palpitation, abdominal pain, nausea or vomiting. No acute events overnight as per RN. OBJECTIVE: Vital Signs Period Temp Pulse Resp BP Sys/Beaver Pulse Ox Last 24 Hr 97.8 F-98.1 F 60-74 18-20 112-142/54-74 99-99 GENERAL: Awake, alert, and fully oriented, in no acute distress. HEAD: Normal with no signs of trauma. EYES: Pupils equal, round and reactive to light, extraocular movements intact, sclera anicteric, conjunctiva clear. No lid lag. EARS, NOSE, THROAT: Moist mucous membranes. NECK: supple without JVD LUNGS: Breath sounds equal, clear to auscultation bilaterally HEART: Regular rate and rhythm, normal S1 and S2 ABDOMEN: Soft, nontender, not distended, normoactive bowel sounds MUSCULOSKELETAL: No CVA tenderness. clean dressing on decubitus region. SOCRATES in place with sero sanguineous output- 25mls. UPPER EXTREMITIES: 2+ pulses, warm, well-perfused. No cyanosis. No clubbing. No peripheral edema. LOWER EXTREMITIES: 2+ pulses, warm, well-perfused. No calf tenderness. No peripheral edema. NEUROLOGICAL: Cranial nerves II-XII intact. Normal speech. PSYCHIATRIC: Cooperative. Good eye contact. Appropriate mood and affect. SKIN: Warm, dry Laboratory Results - last 24 hr 10/01/16 06:30 WBC 7.7 RBC 3.25 L Hgb 10.5 L Hct 30.6 L MCV 94.2 MCHC 34.4 RDW 15.0 Plt Count 139 MPV 7.6 Active Medications Generic Name Dose Route Start Last Admin Trade Name Freq PRN Reason Stop Dose Admin Acetaminophen 325 mg 09/28/16 17:21 Tylenol - PO Q6H PRN PAIN Aspirin 81 mg 09/29/16 10:00 10/01/16 09:35 Asa - PO 81 mg DAILY BRAULIO Administration Docusate Sodium 100 mg 10/01/16 13:06 Colace - PO BID PRN CONSTIPATION Cefazolin Sodium 50 mls @ 100 mls/hr 09/29/16 09:13 10/01/16 09:35 Ancef 1gm Ivpb (Pre-Docked) IVPB 100 mls/hr Q8H-IV BRAULIO Administration Sodium Chloride 1,000 mls @ 40 mls/hr 10/01/16 13:30 10/01/16 14:56 Normal Saline - IV 40 mls/hr ASDIR BRAULIO Administration Metoprolol Succinate 50 mg 09/29/16 10:00 10/01/16 09:35 Toprol Xl - PO 50 mg DAILY BRAULIO Administration Nitroglycerin 0.4 mg 09/29/16 10:00 10/01/16 09:41 Nitro-Dur Patch - TD 0.4 mg DAILY BRAULIO Administration Oxycodone HCl 5 mg 09/28/16 17:21 09/28/16 23:25 Roxicodone - PO 5 mg Q6H PRN Administration PAIN SCALE 6-10 Ranolazine 1,000 mg 09/28/16 22:00 10/01/16 09:35 Ranexa - PO 1,000 mg BID BRAULIO Administration Rosuvastatin Calcium 20 mg 09/28/16 22:00 09/30/16 21:10 Crestor - PO 20 mg HS BRAULIO Administration Senna 1 tab 10/01/16 22:00 Senna - PO HS BRAULIO ASSESSMENT/PLAN: Patient is an 86 year old Male with PMH of chronic sacral ulcer, CAD s/p 2c CABG 2005 and stent 2013, hyperlipidemia, prostate CA sp prostatectomy, who presented for debridement of sacral decubitus ulcer with a skin flap closure. # Chronic stave IV sacral decubitus ulcer -POD3 s/o surgical debridement with skin flap closure -H/H stable -IV cefazolin day3 and to be continued for 2 more days as per Dr. Lawrence. -low res diet -SOCRATES emptying q shift: 85 cc of serosanguineous fluid overnight,90 cc yesterday -to lie on side and not flat on back. -heparin held -percocet for pain - IV NS to be continued # CAD s/p CABG and stent in 2013 - Continue Asa 81 -Continue NTG patch prn # Hypertension-stable -Continue Metoprolol 50mg daily # Hyperlipidemia Continue Lipitor 20 HS # FEN IV NS @ 40mls/hr Electrolytes WNL Low fibre diet # Prophylaxis For DVT: On SCD's For GI: Not indicated # Code Status: Full Code # Dispo: Admitted in Med-Surg. Duration of stay unknown. Illness, Investigation and Plan of care explained to the patient. He verbalized understanding. Case discussed with Dr. Keene. Visit type - Emergency Visit Emergency Visit: Yes ED Registration Date: 09/28/16 Care time: The patient presented to the Emergency Department on the above date and was hospitalized for further evaluation of their emergent condition. - New Patient This patient is new to me today: Yes Date on this admission: 10/01/16 - Critical Care Critical Care patient: No
--- NOTE | 2016-10-01 15:28 | PN ---
Teaching Attending Note Name of Resident: Cecilia Menjivar ATTENDING PHYSICIAN STATEMENT I saw and evaluated the patient. I reviewed the resident's note and discussed the case with the resident. I agree with the resident's findings and plan as documented. SUBJECTIVE: no fever or chills, no abd pain, no SOB or CP . OBJECTIVE: NAD CV : RRR Lungs : CTAB Ext : no edema Sacral area with a clean dressing with SCORATES drainage full of sanguinous fluid . ASSESSMENT AND PLAN: 86 y/o man with h/o HTN, HLP, CAD s/p CABG who presented with sacral decub ulcer and had flap reconstruction sx 1- Excision of stage IV decub ulcer with flap reconstruction. POD 3. case d/w Dr. Crespo pain control cont abx for 2 more days cont hold heparin due to bloody discharge Hb stable 10.5 ( increased from yesterday ) decrease rate of IVF 2- H/o HTN, HLP, CAD: cont home meds 3- start bowel regimen for constipation
--- NOTE | 2016-10-01 17:05 | PATH ---
Surgical Pathology Report Patient Name: MILTON AUGUSTIN Med. Rec. #: [id number] /Age/Gender: 1930 (Age: 86) / M Account: [id number] Location: [facility] MED/SURG Taken: 09/28/2016 Received: 09/29/2016 Reported: 10/01/2016 Physicians: Murray Robledo M.D. Specimen(s) Received SACRAL DECUBITUS Clinical History Pressure ulcer Final Diagnosis SKIN, SACRUM, DEBRIDEMENT: SKIN WITH ULCERATION. Electronically Signed Ki Augustin M.D. Gross Description Received in formalin labeled "sacral decubitus," is a 6.7 x 5.5 x 1.2 cm aggregate of multiple mendes, irregular, ulcerated portions of skin and soft tissue. A territory representative section is submitted in one cassette. /09/29/2016 [facility]09/29/2016
[2016-10-01] MEDS ORDERED: PT OWN MED DRAWER 7, Y5N ONE (17:43)
[2016-10-01] MEDS: SENNOSIDES 8.6MG TABLET (FP) PO SCH (21:35)
[2016-10-01] MEDS: ROSUVASTATIN CA 10 MG TABLET (FP) PO SCH (21:35)
[2016-10-02] MEDS: CEFAZOLIN (PRE-DOCKED) 50 ML IVPB SCH ×3 (02:50→17:11)
[2016-10-02 07:47] LABS: MCH 32.5 pg (25.7-33.7); MCHC 34.6 g/dl (32.0-35.9); MEAN CELL VOLUME 93.9 fl (80-96); MEAN PLT VOLUME 7.4 fl (7.5-11.1); PLATELET COUNT 149 K/MM3 (134-434); WHITE BLOOD COUNT 6.1 K/mm3 (4.0-10.0)
[2016-10-02 08:20] LABS: ALBUMIN 2.7 g/dl (3.4-5.0); ANION GAP 10 (8-16); BILIRUBIN,TOTAL 0.8 mg/dL (0.2-1.0); CALCIUM 8.3 mg/dL (8.5-10.1); CO2 27 mmol/L (21-32); COCKROFT - GAULT 61.77; GLUCOSE,RANDOM 84 mg/dL (74-106); SGOT/AST 23 U/L (15-37); SGPT/ALT 15 U/L (12-78); TOT PROT 5.4 g/dl (6.4-8.2)
[2016-10-02 08:21] LABS: ALK PHOS 65 U/L (45-117)
[2016-10-02] MEDS ORDERED: PT OWN MED DRAWER 7, Y5N ONE (09:52)
[2016-10-02] MEDS ORDERED: RANOLAZINE E.R. 500 MG TABLET (FP) ONE ×2 (09:52→21:27)
[2016-10-02] MEDS: METOPROLOL SUCCINATE 50 MG TAB.SR.24H (FP) PO SCH (10:11)
[2016-10-02] MEDS: RANOLAZINE E.R. 1,000 MG TABLET (FP) PO SCH ×2 (10:11→21:44)
[2016-10-02] MEDS: ASPIRIN 81 MG CHEWABLE TABLETS PO SCH (10:11)
--- NOTE | 2016-10-02 10:36 | PN ---
Progress Note (short form) - Note Progress Note: Subjective: no fever or chills, has no fever or chills. Objective: Vital Signs: Last Vital Signs Temp Pulse Resp BP Pulse Ox 97.9 F 66 20 154/94 99 10/02/16 06:00 10/02/16 06:00 10/02/16 06:00 10/02/16 06:00 10/01/16 21:00 Laboratory Results - last 24 hr 10/02/16 10/02/16 06:00 06:00 WBC 6.1 RBC 3.22 L Hgb 10.5 L Hct 30.3 L MCV 93.9 MCHC 34.6 RDW 15.0 Plt Count 149 MPV 7.4 L Sodium 137 Potassium 4.4 Chloride 100 Carbon Dioxide 27 Anion Gap 10 BUN 17 D Creatinine 1.0 Creat Clearance w eGFR > 60 Random Glucose 84 Calcium 8.3 L Total Bilirubin 0.8 D AST 23 D ALT 15 D Alkaline Phosphatase 65 Total Protein 5.4 L Albumin 2.7 L D Intake & Output 09/29/16 09/30/16 10/01/16 10/02/16 23:59 23:59 23:59 23:59 Intake Total 1460 1600 1700 Output Total 1215 1680 1720 540 Balance 245 -80 -20 -540 Physical Exam: NAD CV : RRR Lungs : CTAB Ext : no edema Sacral area with a clean dressing with SOCRATES drainage full of sanguinous fluid . ASSESSMENT AND PLAN: 86 y/o man with h/o HTN, HLP, CAD s/p CABG who presented with sacral decub ulcer and had flap reconstruction sx 1- Excision of stage IV decub ulcer with flap reconstruction. POD 4. pain control cont abx for 1 more day cont hold heparin due to bloody discharge stable HB , will monitor 120 cc drainage form SOCRATES yesterday cont gentle hydration 2- H/o HTN, HLP, CAD: cont home meds 3- Constipation : bowel regimen Visit type - Emergency Visit Emergency Visit: Yes ED Registration Date: 09/28/16 Care time: The patient presented to the Emergency Department on the above date and was hospitalized for further evaluation of their emergent condition. - New Patient This patient is new to me today: No - Critical Care Critical Care patient: No
[2016-10-02] MEDS: SODIUM CHLORIDE 1,000 ML IV SCH ×2 (11:38→13:30)
[2016-10-02] MEDS: NITROGLYCERIN 0.4 MG/HOUR TD PATCH TD SCH (11:38)
[2016-10-02] MEDS: SENNOSIDES 8.6MG TABLET (FP) PO SCH (21:44)
[2016-10-02] MEDS: ROSUVASTATIN CA 10 MG TABLET (FP) PO SCH (21:44)
[2016-10-03] MEDS: CEFAZOLIN (PRE-DOCKED) 50 ML IVPB SCH ×2 (02:36→09:12)
[2016-10-03 08:26] LABS: MCH 32.5 pg (25.7-33.7); MCHC 34.1 g/dl (32.0-35.9); MEAN CELL VOLUME 95.3 fl (80-96); MEAN PLT VOLUME 7.8 fl (7.5-11.1); PLATELET COUNT 144 K/MM3 (134-434); RDW 14.9 % (11.9-15.9); WHITE BLOOD COUNT 6.5 K/mm3 (4.0-10.0)
[2016-10-03] MEDS ORDERED: PT OWN MED DRAWER 7, Y5N ONE (09:01)
[2016-10-03] MEDS ORDERED: RANOLAZINE E.R. 500 MG TABLET (FP) ONE ×2 (09:01→22:10)
[2016-10-03] MEDS: RANOLAZINE E.R. 1,000 MG TABLET (FP) PO SCH ×2 (09:12→22:12)
[2016-10-03] MEDS: METOPROLOL SUCCINATE 50 MG TAB.SR.24H (FP) PO SCH (09:12)
[2016-10-03] MEDS: NITROGLYCERIN 0.4 MG/HOUR TD PATCH TD SCH (09:12)
[2016-10-03] MEDS: ASPIRIN 81 MG CHEWABLE TABLETS PO SCH (09:12)
[2016-10-03] MEDS: SODIUM CHLORIDE 1,000 ML IV SCH (12:04)
--- NOTE | 2016-10-03 15:18 | PN ---
Progress Note (short form) - Note Progress Note: Post Op day 5 Flap closure for a large chronic wound sacral area Awake, alert, not in pain looks comfortable, ambulating as tolerating Selected Entries 09/30/16 10/02/16 10/03/16 09:00 17:26 14:18 Temperature 98.4 F 97.3 F L 97.9 F Pulse Rate 73 Blood Pressure 83/49 122/56 123/74 Laboratory Tests 09/27/16 09/30/16 10/03/16 13:32 06:10 06:45 WBC 6.6 RBC 2.91 L Hgb 11.5 L 9.7 L 10.4 L Suture line intact, Will leave drain in till SOCRATES drainage decreases Follow Up in wound clinic D/C antibiotics
--- NOTE | 2016-10-03 16:20 | PN ---
Progress Note (short form) - Note Progress Note: Subjective: no fever or chills, has no fever or chills. Objective: Vital Signs: Last Vital Signs Temp Pulse Resp BP Pulse Ox 97.9 F 73 18 123/74 98 10/03/16 14:18 10/03/16 14:18 10/03/16 14:18 10/03/16 14:18 10/03/16 09:00 Laboratory Results - last 24 hr 10/03/16 06:45 WBC 6.5 RBC 3.20 L Hgb 10.4 L Hct 30.5 L MCV 95.3 MCHC 34.1 RDW 14.9 Plt Count 144 MPV 7.8 Physical Exam: NAD CV : RRR Lungs : CTAB Ext : no edema Sacral area with a clean dressing with SOCRATES drainage full of sanguinous fluid . ASSESSMENT AND PLAN: 86 y/o man with h/o HTN, HLP, CAD s/p CABG who presented with sacral decub ulcer and had flap reconstruction sx 1- Excision of stage IV decub ulcer with flap reconstruction. POD 5. dc abx dc IVF no labs for tomorrow plastics f/u 2- H/o HTN, HLP, CAD: cont home meds 3- Constipation : bowel regimen dsipo : d/c home tomorrow . will arrange for VNS Visit type - Emergency Visit Emergency Visit: Yes ED Registration Date: 09/28/16 Care time: The patient presented to the Emergency Department on the above date and was hospitalized for further evaluation of their emergent condition. - New Patient This patient is new to me today: No - Critical Care Critical Care patient: No
[2016-10-03] MEDS: SENNOSIDES 8.6MG TABLET (FP) PO SCH (22:11)
[2016-10-03] MEDS: ROSUVASTATIN CA 10 MG TABLET (FP) PO SCH (22:11)
[2016-10-04] MEDS ORDERED: RANOLAZINE E.R. 500 MG TABLET (FP) ONE (11:34)
[2016-10-04] MEDS: RANOLAZINE E.R. 1,000 MG TABLET (FP) PO SCH (12:10)
[2016-10-04] MEDS: ASPIRIN 81 MG CHEWABLE TABLETS PO SCH (12:11)
[2016-10-04] MEDS: NITROGLYCERIN 0.4 MG/HOUR TD PATCH TD SCH (12:13)
[2016-10-04] MEDS: METOPROLOL SUCCINATE 50 MG TAB.SR.24H (FP) PO SCH (12:15)
--- NOTE | 2016-10-04 15:28 | DS ---
Physical Exam: SUBJECTIVE: Patient seen and examined at bedside this morning. Patient mentioned that he moved his bowel once since admission after taking stool softners. No other complaints. Denies chest pain, sob, cough, palpitation, abdominal pain, nausea or vomiting. No acute events overnight as per RN. OBJECTIVE: Vital Signs Period Temp Pulse Resp BP Sys/Beaver Pulse Ox Last 24 Hr 97.7 F-98.4 F 4-71 16-20 120-142/60-78 98 PHYSICAL EXAM GENERAL: Awake, alert, and fully oriented, in no acute distress. HEAD: Normal with no signs of trauma. EYES: Pupils equal, round and reactive to light, extraocular movements intact, sclera anicteric, conjunctiva clear. No lid lag. EARS, NOSE, THROAT: Moist mucous membranes. NECK: supple without JVD LUNGS: Breath sounds equal, clear to auscultation bilaterally HEART: Regular rate and rhythm, normal S1 and S2 ABDOMEN: Soft, nontender, not distended, normoactive bowel sounds MUSCULOSKELETAL: No CVA tenderness. clean dressing on decubitus region. ASHLEY in place with sero sanguineous output- 25mls. UPPER EXTREMITIES: 2+ pulses, warm, well-perfused. No cyanosis. No clubbing. No peripheral edema. LOWER EXTREMITIES: 2+ pulses, warm, well-perfused. No calf tenderness. No peripheral edema. NEUROLOGICAL: Cranial nerves II-XII intact. Normal speech. PSYCHIATRIC: Cooperative. Good eye contact. Appropriate mood and affect. SKIN: Warm, dry LABS HOSPITAL COURSE: Date of Admission:09/28/16 Date of Discharge: 10/04/16 Patient is a 86 year old Male with PMH of chronic sacral ulcer, CAD s/p CABG 2005 and stent 2013, hyperlipidemia, prostate CA s/p prostatectomy, who presented for evaluation of Chronic stage IV sacral decubiti ulcer who was surgical treated with debridement of sacral decubitus ulcer with a skin flap closure done on 09/28/16. ASHLEY Drain was placed. IV Cefazolin was completed before he was discharged. Patient was hemodynamically stable during the stay and there were no complications. For CAD (s/p CABG and stent in 2013) Asa 81mg and NTG patch prn was continued Hypertension was stable and Metoprolol 50mg daily was continued Hyperlipidemia: Lipitor 20 HS was continued during hospitalization. Patient medically cleared for discharge at this time. Sent the patient home with ASHLEY drain. Taught about the wound care and he verbalized understanding. To follow with PCP in a one week and to see Dr. Robledo this week (Patient has scheduled an appointment in 2days) Case discussed with Dr. Keene. Minutes to complete discharge: 45 Discharge Summary Reason For Visit: PRESSURE ULCER Current Active Problems Sacral decubitus ulcer, stage IV (Acute) HTN (hypertension) (Chronic) Condition: Improved - Instructions Diet, Activity, Other Instructions: You had a pressure ulcer known Chronic stage IV sacral decubitus ulcer. Please follow the instructions as below to clean the wound. keep incision dry/intact/, only change gauze around ashley drain if soiled, use pre- cut gauze and wrap around ashley drain (X), measure output, make sure ashley drain top is closed with good suction. Please make sure you follow up with Dr. Robledo as outpatient in his clinic. There is no antibiotics necessary. Return to the Emergency Department if symptoms worsen or if you develop any new symptoms. follow with your PCP in 1 week Referrals: Murray Robledo MD [Staff Physician] - Disposition: VNS/HOME HEALTH CARE - Home Medications Comprehensive Discharge Medication List: Ambulatory Orders Metoprolol Succinate [Toprol Xl] 50 mg PO DAILY 01/23/16 Nitroglycerin Patch [Nitro-Dur Patch -] 1 each TD DAILY 01/23/16 Ranolazine [Ranexa] 1 tab PO BID 01/23/16 Rosuvastatin Calcium [Crestor] 20 mg PO DAILY 01/23/16 Ferrous Sulfate 1 tab PO TID 05/26/16 Ascorbate Calcium [Vitamin C] 1,000 mg PO DAILY 09/24/16 Aspirin [ASA -] 81 mg PO DAILY 09/24/16 Folic Acid 0.4 mg PO DAILY 09/24/16 Docusate Sodium [Colace -] 100 mg PO DAILY #7 capsule 10/04/16 This patient is new to me today: Yes Date on this admission: 10/04/16 Emergency Visit: Yes ED Registration Date: 09/28/16 Care time: The patient presented to the Emergency Department on the above date and was hospitalized for further evaluation of their emergent condition. Critical Care patient: No - Discharge Referral Referred to [facility] No
--- NOTE | 2016-10-04 15:43 | PN ---
Teaching Attending Note Name of Resident: Cecilia Menjivar ATTENDING PHYSICIAN STATEMENT I saw and evaluated the patient. I reviewed the resident's note and discussed the case with the resident. I agree with the resident's findings and plan as documented. SUBJECTIVE: no fever or chills , no abd pain , no pain at wound site OBJECTIVE: NAD CV : RRR Lungs : CTAB Ext : no edema Sacral area with a clean dressing with SOCRATES drainage full of sanguinous fluid . ASSESSMENT AND PLAN: 86 y/o man with h/o HTN, HLP, CAD s/p CABG who presented with sacral decub ulcer and had flap reconstruction sx 1- Excision of stage IV decub ulcer with flap reconstruction. POD 6. f/u with plastic sx as outpt local wound care 2- H/o HTN, HLP, CAD: cont home meds 3- Constipation : bowel regimen fabricio prince today
[2016-10-04 16:13] VITALS: BP 138/68; PULSE 67; TEMP 97.2
== END 2016-10-04 16:14 | disposition home health service (06) | DRG 570 ==
LOC: JSAMEDAYSX 05:22 → EDSTATUS 12:00 → J8W 16:45
PROVIDERS: ADMIT Plastic Surgery; ATTEND Internal Medicine
PROC: 0JB70ZZ Excision of Back Subcutaneous Tissue and Fascia, Open Approach (ICD-10-PCS; principal; 2016-09-28 12:00)
PROC: 0JXM0ZZ Transfer Left Upper Leg Subcutaneous Tissue and Fascia, Open Approach (ICD-10-PCS; 2016-09-28 12:00)
DX: L89.154 Pressure ulcer of sacral region, stage 4 (principal); I25.10 Atherosclerotic heart disease of native coronary artery without angina pectoris; I10 Essential (primary) hypertension; E78.5 Hyperlipidemia, unspecified; K59.00 Constipation, unspecified; Z85.46 Personal history of malignant neoplasm of prostate; Z95.1 Presence of aortocoronary bypass graft; Z87.891 Personal history of nicotine dependence
CPT/HCPCS: 36415; 80048; 80053; 83735; 84100; 85025; 85027; 85610; 85730; 88304-TC; 93005; 93010; 94760; J1644

== ENCOUNTER 2016-10-20 16:53 | Inpatient (IN) | payer OTHER, BC ==
--- NOTE | 2016-10-20 18:13 | PDOC ---
History of Present Illness <Chance Aparicio - Last Filed: 10/20/16 20:35> - General History Source: Patient Exam Limitations: No Limitations - History of Present Illness Initial Comments: 10/20/16 18:51 The patient is a 86 year old male, with a significant past medical history of Anemia, Angina, HTN, HLD who presents to the emergency department sent in by Dr. Robledo (Plastic surgeon) for evaluation of rectum wound. Patient reports multiple cysts and infections in the area which he has been receiving treatments such as wound vac and skin flap by Dr. Robledo. As per patient, he was informed there was positive finding on his previous wound culture and was sent to the ED for IV abx. Patient denies any pain, fever or chills. He denies chest pain, headache or dizziness. He denies nausea, vomit, diarrhea or constipation. He denies dysuria, frequency, urgency or hematuria. Allergies: NKA Past surgical history: Abdominal hernia, Double bypass in 2005, Bilateral knee surgeries secondary to infections, prostatectomy Social history: None <Shona Monique - Last Filed: 10/20/16 22:04> - General Chief Complaint: Wound Infection Stated Complaint: PCP SENT/INFECTION Time Seen by Provider: 10/20/16 18:12 Past History - Past Medical History Anemia: Yes Asthma: No Cancer: No Cardiac Disorders: Yes (angina) CVA: No COPD: No CHF: No Dementia: No Diabetes: No GI Disorders: No Disorders: No HTN: Yes Hypercholesterolemia: Yes Liver Disease: No Seizures: No Thyroid Disease: No - Surgical History Abdominal Surgery: Yes (HERNIA) Appendectomy: No Cardiac Surgery: Yes (2005 double bypass) Cholecystectomy: No Lung Surgery: No Neurologic Surgery: No Orthopedic Surgery: Yes (left knee partial replacement,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) - Psycho/Social/Smoking Cessation Hx Suicidal Ideation: No Smoking History: Never smoked Have you smoked in the past 12 months: No Hx Alcohol Use: No Drug/Substance Use Hx: No Substance Use Type: None <Chance Aparicio - Last Filed: 10/20/16 20:35> <Shona Monique - Last Filed: 10/20/16 22:04> - Past Medical History Allergies/Adverse Reactions: Allergies Allergy/AdvReac Type Severity Reaction Status Date / Time No Known Allergies Allergy Verified 10/20/16 17:01 Home Medications: Ambulatory Orders Metoprolol Succinate [Toprol Xl] 50 mg PO DAILY 01/23/16 Nitroglycerin Patch [Nitro-Dur Patch -] 1 each TD DAILY 01/23/16 Ranolazine [Ranexa] 1 tab PO BID 01/23/16 Rosuvastatin Calcium [Crestor] 20 mg PO DAILY 01/23/16 Ferrous Sulfate 1 tab PO TID 05/26/16 Ascorbate Calcium [Vitamin C] 1,000 mg PO DAILY 09/24/16 Aspirin [ASA -] 81 mg PO DAILY 09/24/16 Folic Acid 0.4 mg PO DAILY 09/24/16 Finasteride 1 mg PO DAILY 10/20/16 Review of Systems - Review of Systems Able to Perform ROS?: Yes Comments:: 10/20/16 18:53 GENERAL/CONSTITUTIONAL: No fever or chills. No weakness. HEAD, EYES, EARS, NOSE AND THROAT: No change in vision. No ear pain or discharge. No sore throat. CARDIOVASCULAR: No chest pain or shortness of breath. RESPIRATORY: No cough, wheezing, or hemoptysis. GASTROINTESTINAL: No nausea, vomiting, diarrhea or constipation. GENITOURINARY: No dysuria, frequency, or change in urination. MUSCULOSKELETAL: No joint or muscle swelling or pain. No neck or back pain. SKIN: + Ulcer above rectum. No rash NEUROLOGIC: No headache, vertigo, loss of consciousness, or change in strength/ sensation. ENDOCRINE: No increased thirst. No abnormal weight change. HEMATOLOGIC/LYMPHATIC: No anemia, easy bleeding, or history of blood clots. ALLERGIC/IMMUNOLOGIC: No hives or skin allergy. <Shona Monique - Last Filed: 10/20/16 22:04> *Physical Exam - Vital Signs Last Vital Signs Temp Pulse Resp BP Pulse Ox 97.7 F 67 20 130/67 98 10/20/16 16:58 10/20/16 16:58 10/20/16 16:58 10/20/16 16:58 10/20/16 16:58 <Chance Aparicio - Last Filed: 10/20/16 20:35> - Vital Signs Last Vital Signs Temp Pulse Resp BP Pulse Ox 97.7 F 67 20 130/67 98 10/20/16 16:58 10/20/16 16:58 10/20/16 16:58 10/20/16 16:58 10/20/16 16:58 - Physical Exam Comments: 10/20/16 18:53 GENERAL: Awake, alert, and fully oriented, in no acute distress HEAD: No signs of trauma EYES: PERRLA, EOMI, sclera anicteric, conjunctiva clear ENT: Auricles normal inspection, hearing grossly normal, nares patent, oropharynx clear without exudates. Moist mucosa NECK: Normal ROM, supple, no lymphadenopathy, JVD, or masses LUNGS: Breath sounds equal, clear to auscultation bilaterally. No wheezes, and no crackles HEART: Regular rate and rhythm, normal S1 and S2, no murmurs, rubs or gallops ABDOMEN: Soft, nontender, normoactive bowel sounds. No guarding, no rebound. No masses EXTREMITIES: Normal range of motion, no edema. No clubbing or cyanosis. No cords, erythema, or tenderness NEUROLOGICAL: Cranial nerves II through XII grossly intact. Normal speech, normal gait SKIN:+ Well healing ulcer above the rectum with packing, pink. No drainage, pus or blood. No signs of infection. Warm, Dry, normal turgor, no rashes noted. <Shona Monique - Last Filed: 10/20/16 22:04> Heart Score/ECG Review #1 10/20/16 22:[address] Markus Betancourt. rate 65 bpm Junctional rhythm FL Interval * ms QRS Duration 82 ms QT/QTc 436/453 ms P-R-T axes * 34 61 <Shona Monique - Last Filed: 10/20/16 22:04> ED Treatment Course - LABORATORY CBC & Chemistry Diagram: 10/20/16 18:52 10/20/16 18:52 <Chance Aparicio - Last Filed: 10/20/16 20:35> - LABORATORY CBC & Chemistry Diagram: 10/20/16 18:52 10/20/16 18:52 <Shona Monique - Last Filed: 10/20/16 22:04> Medical Decision Making - Medical Decision Making 10/20/16 20:[address] Sykes - Going out of town, please admit to [facility] as Dr Robledo's Patient 10/20/16 20:[address] Diaz [ID] Use Vancomycin and Zosyn Discussed with Dr. Franklin for Admission <Chance Aparicio - Last Filed: 10/20/16 20:35> *DC/Admit/Observation/Transfer - Discharge Dispostion Admit: Yes - Attestations Physician Attestion: 10/20/16 18:13 I, Dr. Chance Aparicio, attest that this document has been prepared under my direction and personally reviewed by me in its entirety. I further attest, that it accurately reflects all work, treatment, procedures and medical decision -making performed by me. <Chance Aparicio - Last Filed: 10/20/16 20:35> - Attestations Scribe Attestion: 10/20/16 18:53 Documentation prepared by Shona Monique, acting as medical laboratory technical officer for Chance Aparicio MD/DO. <Shona Monique - Last Filed: 10/20/16 22:04> Diagnosis at time of Disposition: Wound infection after surgery Qualifiers: Encounter type: initial encounter Qualified Code(s): T81.4XXA - Infection following a procedure, initial encounter - Discharge Dispostion Condition at time of disposition: Unchanged/Unknown
--- NOTE | 2016-10-20 18:39 | PDOC ---
History of Present Illness - General Chief Complaint: Wound Infection Stated Complaint: PCP SENT/INFECTION Time Seen by Provider: 10/20/16 18:12 History Source: Patient Exam Limitations: No Limitations - History of Present Illness Initial Comments: 86 y/o M w/PMH of chronic sacral ulcer, CAD s/p 2c CABG 2005 and stend 2013, thn , hld, prostate CA sp prostatectomy presents to ER due to positive wound cultures from sacral ulcer. Pt was seen by Dr. Robledo last week at which point wound cultures were taken from his sacral ulcer. Pt received call today from Dr. Robledo stating he needed to be admitted to hospital for IV antibiotics. Pt does not remember culture results. Pt states he is in his usual state of health and has no complaints. He denies fevers or chills or any new symptoms at ulcer site. Past History - Past Medical History Allergies/Adverse Reactions: Allergies Allergy/AdvReac Type Severity Reaction Status Date / Time No Known Allergies Allergy Verified 10/20/16 17:01 Home Medications: Ambulatory Orders Metoprolol Succinate [Toprol Xl] 50 mg PO DAILY 01/23/16 Nitroglycerin Patch [Nitro-Dur Patch -] 1 each TD DAILY 01/23/16 Ranolazine [Ranexa] 1 tab PO BID 01/23/16 Rosuvastatin Calcium [Crestor] 20 mg PO DAILY 01/23/16 Ferrous Sulfate 1 tab PO TID 05/26/16 Ascorbate Calcium [Vitamin C] 1,000 mg PO DAILY 09/24/16 Aspirin [ASA -] 81 mg PO DAILY 09/24/16 Folic Acid 0.4 mg PO DAILY 09/24/16 Finasteride 5 mg PO DAILY 10/20/16 Piperacillin/Tazob 3.375 gm [Zosyn 3.375GM Ivpb (Pre-Docked)] 3.375 gm IVPB Q8H #27 bag 10/26/16 Anemia: Yes Asthma: No Cancer: No Cardiac Disorders: Yes (angina) CVA: No COPD: No CHF: No Dementia: No Diabetes: No GI Disorders: No Disorders: No HTN: Yes Hypercholesterolemia: Yes Liver Disease: No Seizures: No Thyroid Disease: No - Surgical History Abdominal Surgery: Yes (HERNIA) Appendectomy: No Cardiac Surgery: Yes (2005 double bypass) Cholecystectomy: No Lung Surgery: No Neurologic Surgery: No Orthopedic Surgery: Yes (left knee partial replacement,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) - Psycho/Social/Smoking Cessation Hx Suicidal Ideation: No Smoking History: Never smoked Have you smoked in the past 12 months: No Hx Alcohol Use: No Drug/Substance Use Hx: No Substance Use Type: None Review of Systems - Review of Systems Able to Perform ROS?: Yes Comments:: CONSTITUTIONAL: Absent: fever, no chills, no fatigue CARDIOVASCULAR: Absent: chest pain RESPIRATORY: Absent: cough, no SOB GI: Absent: abdominal pain MUSCULOSKELETAL: Absent: back pain SKIN: +chronic sacral ulcer *Physical Exam - Vital Signs Last Vital Signs Temp Pulse Resp BP Pulse Ox 97.7 F 67 20 130/67 98 10/20/16 16:58 10/20/16 16:58 10/20/16 16:58 10/20/16 16:58 10/20/16 16:58 - Physical Exam Comments: GENERAL: Well-appearing, well-nourished. No apparent distress. HEENT: Normocephalic, atraumatic. EOM intact. CARDIOVASCULAR: Normal S1, S2. Regular rate and rhythm. PULMONARY: Clear to auscultation bilaterally. ABDOMEN: Soft, non-distended, non-tender. EXTREMITIES: No gross deformities. SKIN: +Sacral/near rectum ulcer - pink with packing. No drainage, no pus, no blood. Warm, dry. NEUROLOGICAL: No focal neurological deficits. ED Treatment Course - LABORATORY CBC & Chemistry Diagram: 10/25/16 07:10 10/25/16 07:10 Medical Decision Making - Medical Decision Making 10/20/16 18:40 Page sent out to Dr. Robledo regarding culture results. Awaiting call back. Ordered CBCD, CMP, UA, blood culture, urine culture, wound culture. 10/20/16 18:54 Wound culture on 10/14/16 shows E Coli and E faecalis both resistant to ampicillin. 10/20/16 19:[address] Robledo over the phone who states pt had skin flap done recently in coccyx area for ulcer and after flap continued to have 100 cc drainage per day over 2 weeks which was unusual. She did a wound culture which showed E coli and E faecalis and Dr Robledo spoke with who stated pt requires IV abx and inpatient admission. Pt to be admitted with Dr. Mustafa according to Dr. Diaz (as per Dr. Robledo). *DC/Admit/Observation/Transfer Diagnosis at time of Disposition: Wound infection after surgery Qualifiers: Encounter type: initial encounter Qualified Code(s): T81.4XXA - Infection following a procedure, initial encounter - Discharge Dispostion Condition at time of disposition: Improved - Prescriptions
[2016-10-20 19:10] LABS: BASOPHIL 0.6 % (0-2.0); EOSINOPHIL 3.1 % (0-4.5); MCH 32.1 pg (25.7-33.7); MCHC 33.7 g/dl (32.0-35.9); MEAN CELL VOLUME 95.1 fl (80-96); MEAN PLT VOLUME 7.1 fl (7.5-11.1); NEUTROPHILS 74.5 % (42.8-82.8); PLATELET COUNT 253 K/MM3 (134-434); WHITE BLOOD COUNT 6.6 K/mm3 (4.0-10.0)
[2016-10-20 19:23] LABS: INR 1.14 (0.82-1.09); PROTHROMBIN TIME (PATIENT) 12.6 SEC (9.98-11.88)
[2016-10-20 19:25] LABS: ACTIVATED PTT 33.1 SECONDS (26.9-34.4)
[2016-10-20 19:56] LABS: ALBUMIN 3.3 g/dl (3.4-5.0); ANION GAP 12 (8-16); BILIRUBIN,TOTAL 0.5 mg/dL (0.2-1.0); CALCIUM 8.7 mg/dL (8.5-10.1); CO2 25 mmol/L (21-32); COCKROFT - GAULT 56.15; CREATININE 1.1 mg/dL (0.7-1.3); GLUCOSE,RANDOM 89 mg/dL (74-106); SGOT/AST 23 U/L (15-37); SGPT/ALT 19 U/L (12-78); TOT PROT 6.9 g/dl (6.4-8.2)
[2016-10-20 19:59] LABS: ALK PHOS 82 U/L (45-117); TROPONIN I < 0.02 ng/ml (0.00-0.05)
--- NOTE | 2016-10-20 22:11 | PN ---
<Fanny Franklin - Last Filed: 10/20/16 22:04> Teaching Attending Note Name of Resident: Scarlet Coker <Can Smith - Last Filed: 10/21/16 05:03> Teaching Attending Note ATTENDING PHYSICIAN STATEMENT I saw and evaluated the patient. I reviewed the resident's note and discussed the case with the resident. I agree with the resident's findings and plan as documented. SUBJECTIVE: The patient is a 86 year old male, accompanied by , who presented to ED due to positive wound cultures from sacral ulcer. Patient was seen by Dr. Robledo last week at which point wound cultures were taken from his sacral ulcer. Patient received call today from Dr. Robledo stating he needed to be admitted to hospital for IV antibiotics secondary to drain removal yesterday and anticipated drain placement tomorrow. Patient does not remember culture results. Patients stated he is in his usual state of health and has no complaints. He denied fevers or chills or any new symptoms at ulcer site. PAST MEDICAL HISTORY: chronic sacral ulcer, CAD, htn, hld, prostate cancer PAST SURGICAL HISTORY: Debridement of sacral decubitus ulcer with a skin flap closure (09/28/16), stent 2013, 2v CABG (2005), prostatectomy, hernia repair, bilateral knee surgery. FAMILY HISTORY: Father - AAA. Mother - Stomach cancer. SOCIAL HISTORY: Former 1 ppd smoker (Quit approximately 70 years ago) ALLERGIES: NKDA MEDICATIONS: 3 Generic Name Dose Route Start Last Admin Trade Name Freq PRN Reason Stop Dose Admin Aspirin 81 mg 10/21/16 10:00 Asa - PO DAILY BRAULIO Diphenhydramine HCl 25 mg 10/20/16 23:04 Benadryl - PO HS PRN INSOMNIA Metoprolol Succinate 50 mg 10/21/16 10:00 Toprol Xl - PO DAILY BRAULIO Nitroglycerin 0.4 mg 10/21/16 10:00 Nitro-Dur Patch - TD DAILY BRAULIO Non-Formulary Med ( 1 each 10/21/16 10:00 Finasteride [ PO Propecia] 1mg Tab) DAILY BRAULIO Ranolazine 1,000 mg 10/21/16 10:00 Ranexa - PO BID BRAULIO Rosuvastatin Calcium 20 mg 10/20/16 23:15 Crestor - PO HS BRAULIO OBJECTIVE: Last Vital Signs 3 Temp Pulse Resp BP Pulse Ox 97.7 F 67 20 130/67 98 10/20/16 16:58 10/20/16 16:58 10/20/16 16:58 10/20/16 16:58 10/20/16 16:58 Physical Exam: GENERAL: Awake, alert, and fully oriented, in no acute distress HEENT: Atraumatic. PERRLA, EOMI. Moist mucosa. No JVD LUNGS: No distress, speaks full sentences, clear to auscultation bilaterally HEART: Regular rate and rhythm, normal S1 and S2, no murmurs, rubs or gallops, peripheral pulses normal and equal bilaterally. ABDOMEN: Soft, nontender, normoactive bowel sounds. No guarding, no rebound. No masses EXTREMITIES: Normal inspection, Normal range of motion, no edema. No clubbing or cyanosis. NEUROLOGICAL: Cranial nerves II through XII grossly intact. Normal speech, normal gait, no focal sensorimotor deficits SKIN: (+) Warm, Dry, normal turgor. Well healing/well dressed sacral skin flap with small opening in the intergluteal cleft draining small amounts of serousanguinous fluid and mild surrounding erythema. Labs: 3 10/20/16 10/20/16 10/20/16 18:52 18:52 18:52 WBC 6.6 RBC 3.50 L Hgb 11.2 L Hct 33.2 L MCV 95.1 MCHC 33.7 RDW 14.0 Plt Count 253 D MPV 7.1 L Neutrophils % 74.5 Lymphocytes % 9.4 Monocytes % 12.4 H Eosinophils % 3.1 Basophils % 0.6 INR 1.14 PTT (Actin FS) 33.1 Sodium 137 Potassium 5.1 Chloride 100 Carbon Dioxide 25 Anion Gap 12 BUN 25 H D Creatinine 1.1 Creat Clearance w eGFR > 60 Random Glucose 89 Calcium 8.7 Total Bilirubin 0.5 D AST 23 ALT 19 D Alkaline Phosphatase 82 D Creatine Kinase 64 Troponin I < 0.02 Total Protein 6.9 D Albumin 3.3 L D Blood Type Antibody Screen 3 10/20/16 18:52 WBC RBC Hgb Hct MCV MCHC RDW Plt Count MPV Neutrophils % Lymphocytes % Monocytes % Eosinophils % Basophils % INR PTT (Actin FS) Sodium Potassium Chloride Carbon Dioxide Anion Gap BUN Creatinine Creat Clearance w eGFR Random Glucose Calcium Total Bilirubin AST ALT Alkaline Phosphatase Creatine Kinase Troponin I Total Protein Albumin Blood Type B POSITIVE Antibody Screen Negative Imaging: EXAM: Chest x-ray. Impression: Official report pending. ASSESSMENT AND PLAN : 1. Sacral decubitus ulcer s/p skin flap closure 09/28/16, now infected - ID on case for IV Abx, Dr Diaz requested Vanco/zosyn - Dressing change daily - Wound care - Dr. Robledo to eval pt for replacement of drain to avoid abscess formation. 2. CAD -Aspirin 81 mg PO daily -NTG patch PRN 3. HLD - Resume Lipitor 20 mg HS 4. HTN - Resume Toprol XL 50 mg daily 5. BPH - Finasteride HS 6. PPX DVT - Frequent ambulation Admit to med surg. Documentation prepared by Can Smith, acting as senior medical transcriptionist for Dr. Fanny Franklin MD.
--- NOTE | 2016-10-20 22:26 | HP ---
CHIEF COMPLAINT: PCP: HISTORY OF PRESENT ILLNESS: This is an 86 yo M with PMH of chronic sacral ulcer, CAD s/p 2c CABG 2005 and stent 2013, HTN, HLD, prostate CA sp prostatectomy, recent debridement of sacral decubitus ulcer with a skin flap closure 09/28/16, who present at urging of Dr Loredo for evaluation of rectal wound. He has been f/u with Dr Robledo in wound care, last seen yesterday, at which time SOCRATES was removed. He had a SOCRATES culture 10/14 that showed a rodriguez sensitive e coli/e faecalis. He is here for IV abx with ID on case. His ulcer has been in place for 70 years due to a recurrent cyst in the area. It was grade IV before recent surgery. Patients mobility status is ambulation with walker around the house. Denies angina, orthopnea or palpitations. Recent Travel: denies PAST MEDICAL HISTORY: as above PAST SURGICAL HISTORY: CABG and coronary stent, hernia repair, Knee surgery, prostatectomy 2000, debridement of sacral decubitus ulcer with a skin flap closure 09/28/16 Social History: lives at home with Smoking: past smoker pack a day for 5 years as a teenager Alcohol: denies Drugs: denies Family History: AAA father, stomach CA mother. Allergies No Known Allergies Allergy (Verified 10/20/16 17:01) HOME MEDICATIONS: Home Medications Medication Instructions Recorded Metoprolol Succinate [Toprol Xl] 50 mg PO DAILY 01/23/16 Nitroglycerin Patch [Nitro-Dur 1 each TD DAILY 01/23/16 Patch -] Ranolazine [Ranexa] 1 tab PO BID 01/23/16 Rosuvastatin Calcium [Crestor] 20 mg PO DAILY 01/23/16 Ferrous Sulfate 1 tab PO TID 05/26/16 Ascorbate Calcium [Vitamin C] 1,000 mg PO DAILY 09/24/16 Aspirin [ASA -] 81 mg PO DAILY 09/24/16 Folic Acid 0.4 mg PO DAILY 09/24/16 Finasteride 1 mg PO DAILY 10/20/16 REVIEW OF SYSTEMS CONSTITUTIONAL: Absent: fever, chills, diaphoresis, generalized weakness, malaise, loss of appetite, weight change HEENT: Absent: rhinorrhea, nasal congestion, throat pain CARDIOVASCULAR: Absent: chest pain, syncope, palpitations, irregular heart rate, lightheadedness , peripheral edema RESPIRATORY: Absent: cough, shortness of breath, orthopnea GASTROINTESTINAL: Absent: abdominal pain, abdominal distension, nausea, vomiting, diarrhea GENITOURINARY: Absent: dysuria MUSCULOSKELETAL: Absent: myalgia, arthralgia SKIN: Absent: rash, HEMATOLOGIC/IMMUNOLOGIC: Absent: easy bleeding, easy bruising ENDOCRINE: Absent: unexplained weight gain, unexplained weight loss NEUROLOGIC: Absent: headache, focal weakness or paresthesias, dizziness PSYCHIATRIC: Absent: anxiety Laboratory Tests 10/20/16 10/20/16 18:52 18:52 WBC 6.6 Hgb 11.2 L Hct 33.2 L Plt Count 253 D Neutrophils % 74.5 Sodium 137 Potassium 5.1 Chloride 100 Carbon Dioxide 25 Anion Gap 12 BUN 25 H D Creatinine 1.1 Creat Clearance w eGFR > 60 Random Glucose 89 Calcium 8.7 Total Bilirubin 0.5 D AST 23 ALT 19 D Alkaline Phosphatase 82 D Creatine Kinase 64 Troponin I < 0.02 Total Protein 6.9 D Albumin 3.3 L D PHYSICAL EXAMINATION GENERAL: Awake, alert, and fully oriented, in no acute distress. HEAD: Normal with no signs of trauma. EYES: Pupils equal, round and reactive to light, extraocular movements intact, sclera anicteric, conjunctiva clear. No lid lag. EARS, NOSE, THROAT: Moist mucous membranes. NECK: supple without JVD LUNGS: Breath sounds equal, clear to auscultation bilaterally HEART: Regular rate and rhythm, normal S1 and S2 ABDOMEN: Soft, nontender, not distended, normoactive bowel sounds MUSCULOSKELETAL: No CVA tenderness. clean dressing on decubitus region. SOCRATES in place. UPPER EXTREMITIES: 2+ pulses, warm, well-perfused. No cyanosis. No clubbing. No peripheral edema. LOWER EXTREMITIES: 2+ pulses, warm, well-perfused. No calf tenderness. No peripheral edema. NEUROLOGICAL: Cranial nerves II-XII intact. Normal speech. PSYCHIATRIC: Cooperative. Good eye contact. Appropriate mood and affect. SKIN: Warm, dry. the skin flap on sacral area is well healed. there is a small opening in the intergluteal cleft above rectum packed with dressing, draining call amount of serous fluid. nontender, mild erythema. ASSESSMENT/PLAN: This is an 86 yo M with PMH of chronic sacral ulcer, CAD s/p 2c CABG 2005 and stent 2013, HTN, HLD, prostate CA sp prostatectomy, recent debridement of sacral decubitus ulcer with a skin flap closure 09/28/16, who present at urging of Dr Loredo for evaluation of rectal wound. Chronic stave IV sacral gecubitus ulcer s/p skin flap closure 09/28/16, now infected -SOCRATES culture 10/14 that showed a rodriguez sensitive e coli/e faecalis -SOCRATES removed yesterday, to be replaced tomorrow by Dr Loredo -ID on case for IV Abx, Dr Diaz requested Vanco/zosyn -local wound care/daily dressing change CAD -Asa 81 -NTG patch prn HTN -resume toprol xl 50 d HLD resume lipitor 20 hs BPH -finasteride HS PPX teds, early ambulation Dispo: adm med kwan Problem List - Problem (1) Wound infection after surgery Code(s): T81.4XXA - INFECTION FOLLOWING A PROCEDURE, INITIAL ENCOUNTER Qualifiers: Encounter type: initial encounter Qualified Code(s): T81.4XXA - Infection following a procedure, initial encounter (2) Sacral decubitus ulcer, stage IV Code(s): L89.154 - PRESSURE ULCER OF SACRAL REGION, STAGE 4 (3) CAD (coronary artery disease) Code(s): I25.10 - ATHSCL HEART DISEASE OF [place] CORONARY ARTERY W/O ANG PCTRS (4) HLD (hyperlipidemia) Code(s): E78.5 - HYPERLIPIDEMIA, UNSPECIFIED (5) HTN (hypertension) Code(s): I10 - ESSENTIAL (PRIMARY) HYPERTENSION Visit type - Emergency Visit Emergency Visit: Yes ED Registration Date: 10/20/16 Care time: The patient presented to the Emergency Department on the above date and was hospitalized for further evaluation of their emergent condition. - New Patient This patient is new to me today: No - Critical Care Critical Care patient: No
[2016-10-20] MEDS ORDERED: FINASTERIDE 5 MG TABLET (FP) PO SCH (23:15)
[2016-10-20 23:18] VITALS: BMI 26.3
[2016-10-20] MEDS ORDERED: VANCOMYCIN 1 GRAM (PRE-DOCKED) 250 ML IVPB ONE (23:24)
[2016-10-20] MEDS ORDERED: PIPERACILLIN/TAZOB 3.375 GM 50 ML IVPB ONE (23:25)
[2016-10-20 23:50] LABS: URINE APPEARANCE CLEAR; URINE BILIRUBIN NEGATIVE (NEGATIVE); URINE BLOOD NEGATIVE (NEGATIVE); URINE COLOR YELLOW; URINE GLUCOSE (UA) NEGATIVE (NEGATIVE); URINE KETONE NEGATIVE (NEGATIVE); URINE LEUK ESTERASE NEGATIVE (NEGATIVE); URINE NITRITE NEGATIVE (NEGATIVE); URINE PROTEIN NEGATIVE (NEGATIVE); URINE UROBILINOGEN NEGATIVE E.U./dl (0.2-1.0)
[2016-10-20] MEDS: ROSUVASTATIN CA 20 MG TABLET (FP) PO SCH (23:51)
[2016-10-20] MEDS: diphenhydrAMINE HCL 25 MG CAPSULE (FP) PO PRN (23:51)
[2016-10-21] MEDS ORDERED: PIPERACILLIN/TAZOB 3.375 GM 50 ML IVPB ONE (06:00)
[2016-10-21 07:52] LABS: MCH 32.5 pg (25.7-33.7); MCHC 34.2 g/dl (32.0-35.9); MEAN CELL VOLUME 95.2 fl (80-96); MEAN PLT VOLUME 6.9 fl (7.5-11.1); PLATELET COUNT 205 K/MM3 (134-434); RDW 13.9 % (11.9-15.9); WHITE BLOOD COUNT 5.9 K/mm3 (4.0-10.0)
[2016-10-21 08:15] LABS: CALCIUM 8.4 mg/dL (8.5-10.1); COCKROFT - GAULT 60.73; MAGNESIUM 2.4 mg/dL (1.8-2.4); PHOSPHOROUS 3.2 mg/dL (2.5-4.9)
--- NOTE | 2016-10-21 09:15 | PN ---
Teaching Attending Note Name of Resident: Cecilia Menjivar ATTENDING PHYSICIAN STATEMENT I saw and evaluated the patient. I reviewed the resident's note and discussed the case with the resident. I agree with the resident's findings and plan as documented. SUBJECTIVE: Patient is comfortable with no acute distress, on IV antibiotics now. OBJECTIVE: Vital Signs Temperature 98.2 F 10/21/16 06:00 Pulse Rate 63 10/21/16 06:00 Respiratory Rate 0 L 10/21/16 06:00 Blood Pressure 134/64 10/21/16 06:00 O2 Sat by Pulse Oximetry (%) 98 10/20/16 23:26 CBCD WBC 5.9 K/mm3 (4.0-10.0) 10/21/16 06:30 RBC 3.09 M/mm3 (4.00-5.60) L 10/21/16 06:30 Hgb 10.0 GM/dL (11.7-16.9) L D 10/21/16 06:30 Hct 29.4 % (35.4-49) L 10/21/16 06:30 MCV 95.2 fl (80-96) 10/21/16 06:30 MCHC 34.2 g/dl (32.0-35.9) 10/21/16 06:30 RDW 13.9 % (11.9-15.9) 10/21/16 06:30 Plt Count 205 K/MM3 (134-434) 10/21/16 06:30 MPV 6.9 fl (7.5-11.1) L 10/21/16 06:30 CMP Sodium 137 mmol/L (136-145) 10/21/16 06:30 Potassium 4.5 mmol/L (3.5-5.1) 10/21/16 06:30 Chloride 100 mmol/L (98-107) 10/21/16 06:30 Carbon Dioxide 28 mmol/L (21-32) 10/21/16 06:30 Anion Gap 9 (8-16) 10/21/16 06:30 BUN 20 mg/dL (7-18) H 10/21/16 06:30 Creatinine 1.0 mg/dL (0.7-1.3) 10/21/16 06:30 Creat Clearance w eGFR > 60 (>60) 10/20/16 18:52 Random Glucose 90 mg/dL (74-106) 10/21/16 06:30 Calcium 8.4 mg/dL (8.5-10.1) L 10/21/16 06:30 Total Bilirubin 0.5 mg/dL (0.2-1.0) D 10/20/16 18:52 AST 23 U/L (15-37) 10/20/16 18:52 ALT 19 U/L (12-78) D 10/20/16 18:52 Alkaline Phosphatase 82 U/L (45-117) D 10/20/16 18:52 Total Protein 6.9 g/dl (6.4-8.2) D 10/20/16 18:52 Albumin 3.3 g/dl (3.4-5.0) L D 10/20/16 18:52 CARDIAC ENZYMES Creatine Kinase 64 IU/L (39-308) 10/20/16 18:52 Troponin I < 0.02 ng/ml (0.00-0.05) 10/20/16 18:52 Current Medications Generic Name Dose Route Start Last Admin Trade Name Freq PRN Reason Stop Dose Admin Aspirin 81 mg 10/21/16 10:00 Asa - PO DAILY [facility] Diphenhydramine HCl 25 mg 10/20/16 23:04 10/20/16 23:51 Benadryl - PO 25 mg HS PRN Administration INSOMNIA Metoprolol Succinate 50 mg 10/21/16 10:00 Toprol Xl - PO DAILY [facility] Nitroglycerin 0.4 mg 10/21/16 10:00 Nitro-Dur Patch - TD DAILY [facility] Non-Formulary Med ( 1 each 10/21/16 10:00 Finasteride [ PO Propecia] 1mg Tab) DAILY [facility] Ranolazine 1,000 mg 10/21/16 10:00 Ranexa - PO BID BRAULIO Rosuvastatin Calcium 20 mg 10/20/16 23:15 10/20/16 23:51 Crestor - PO 20 mg HS [facility] Administration Home Medications Medication Instructions Recorded Metoprolol Succinate [Toprol Xl] 50 mg PO DAILY 01/23/16 Nitroglycerin Patch [Nitro-Dur 1 each TD DAILY 01/23/16 Patch -] Ranolazine [Ranexa] 1 tab PO BID 01/23/16 Rosuvastatin Calcium [Crestor] 20 mg PO DAILY 01/23/16 Ferrous Sulfate 1 tab PO TID 05/26/16 Ascorbate Calcium [Vitamin C] 1,000 mg PO DAILY 09/24/16 Aspirin [ASA -] 81 mg PO DAILY 09/24/16 Folic Acid 0.4 mg PO DAILY 09/24/16 Finasteride 1 mg PO DAILY 10/20/16 PE: per resident's notes ASSESSMENT AND PLAN: This is an 86 yo M with PMH of chronic sacral ulcer, CAD s/p 2c CABG 2005 and stent 2013, HTN, HLD, prostate CA sp prostatectomy, recent debridement of sacral decubitus ulcer with a skin flap closure 09/28/16, who presented fro evaluation of evaluation of rectal wound. # Stage IV sacral decubitus ulcer s/p skin flap closure 09/28/16, now infected on IV Vanco/zosyn; Plastic surgeon , ID on case, local wound care/ daily dressing change #CAD on Asa 81, NTG patch prn #HTN on toprol xl 50 daily #HLD resume lipitor 20 hs #BPH finasteride HS PPX teds, early ambulation hyperbaric consult
[2016-10-21] MEDS ORDERED: PT OWN MED DRAWER 7, Y5N ONE ×2 (09:33→10:29)
[2016-10-21] MEDS ORDERED: RANOLAZINE E.R. 500 MG TABLET (FP) ONE ×2 (09:33→20:47)
[2016-10-21] MEDS ORDERED: FINASTERIDE 1 MG PO SCH (10:00)
[2016-10-21] MEDS: RANOLAZINE E.R. 1,000 MG TABLET (FP) PO SCH ×2 (10:18→22:29)
[2016-10-21] MEDS: NITROGLYCERIN 0.4 MG/HOUR TD PATCH TD SCH (10:18)
[2016-10-21] MEDS: ASPIRIN 81 MG CHEWABLE TABLETS PO SCH (10:18)
[2016-10-21] MEDS: METOPROLOL SUCCINATE 50 MG TAB.SR.24H (FP) PO SCH (10:19)
--- NOTE | 2016-10-21 13:06 | EKG ---
Test Reason : Blood Pressure : / mmHG Vent. Rate : 065 BPM Atrial Rate : 058 BPM P-R Int : 000 ms QRS Dur : 082 ms QT Int : 436 ms P-R-T Axes : 000 034 061 degrees QTc Int : 453 ms SINUS RHYTHM WHEN COMPARED WITH ECG OF 27-SEP-2016 12:44, NO SIGNIFICANT CHANGE WAS FOUND Confirmed by ÁLVARO SALGADO MD ([id number]) on 10/21/2016 1:06:37 PM Referred By: Confirmed By:ÁLVARO SALGADO MD
--- NOTE | 2016-10-21 15:29 | PN ---
Physical Exam: SUBJECTIVE: Patient seen and examined at bed side this morning. No complaints. Denies chest pain, sob, cough, palpitation, abdominal pain, nausea or vomiting. OBJECTIVE: Vital Signs Period Temp Pulse Resp BP Sys/Beaver Pulse Ox Last 24 Hr 97.4 F-98.2 F 63-66 0-22 116-134/46-66 98 GENERAL: Awake, alert, and fully oriented, in no acute distress. HEAD: Normal with no signs of trauma. EYES: Pupils equal, round and reactive to light, extraocular movements intact, sclera anicteric, conjunctiva clear. No lid lag. EARS, NOSE, THROAT: Moist mucous membranes. NECK: supple without JVD LUNGS: Breath sounds equal, clear to auscultation bilaterally HEART: Regular rate and rhythm, normal S1 and S2 ABDOMEN: Soft, nontender, not distended, normoactive bowel sounds MUSCULOSKELETAL: No CVA tenderness. clean dressing on decubitus region. SOCRATES in place. UPPER EXTREMITIES: 2+ pulses, warm, well-perfused. No cyanosis. No clubbing. No peripheral edema. LOWER EXTREMITIES: 2+ pulses, warm, well-perfused. No calf tenderness. No peripheral edema. NEUROLOGICAL: Cranial nerves II-XII intact. Normal speech. PSYCHIATRIC: Cooperative. Good eye contact. Appropriate mood and affect. SKIN: Warm, dry. the skin flap on sacral area -didn't open the dressing as it had just been changed by the wound care nurse. Laboratory Results - last 24 hr 10/20/16 10/21/16 10/21/16 23:40 06:30 06:30 WBC 5.9 RBC 3.09 L Hgb 10.0 L D Hct 29.4 L MCV 95.2 MCHC 34.2 RDW 13.9 Plt Count 205 MPV 6.9 L Sodium 137 Potassium 4.5 Chloride 100 Carbon Dioxide 28 Anion Gap 9 BUN 20 H Creatinine 1.0 Random Glucose 90 Calcium 8.4 L Phosphorus 3.2 Magnesium 2.4 Urine Color Yellow Urine Appearance Clear Urine pH 5.0 Ur Specific Theresa 1.015 Urine Protein Negative Urine Glucose (UA) Negative Urine Ketones Negative Urine Blood Negative Urine Nitrite Negative Urine Bilirubin Negative Urine Urobilinogen Negative Ur Leukocyte Esterase Negative Active Medications Generic Name Dose Route Start Last Admin Trade Name Freq PRN Reason Stop Dose Admin Aspirin 81 mg 10/21/16 10:00 10/21/16 10:18 Asa - PO 81 mg DAILY BRAULIO Administration Diphenhydramine HCl 25 mg 10/20/16 23:04 10/20/16 23:51 Benadryl - PO 25 mg HS PRN Administration INSOMNIA Metoprolol Succinate 50 mg 10/21/16 10:00 10/21/16 10:19 Toprol Xl - PO 50 mg DAILY BRAULIO Administration Nitroglycerin 0.4 mg 10/21/16 10:00 10/21/16 10:18 Nitro-Dur Patch - TD 0.4 mg DAILY BRAULIO Administration Non-Formulary Med ( 1 each 10/21/16 10:00 Finasteride [ PO Propecia] 1mg Tab) DAILY BRAULIO Ranolazine 1,000 mg 10/21/16 10:00 10/21/16 10:18 Ranexa - PO 1,000 mg BID BRAULIO Administration Rosuvastatin Calcium 20 mg 10/20/16 23:15 10/20/16 23:51 Crestor - PO 20 mg HS BRAULIO Administration ASSESSMENT/PLAN: Patient is a 86 year old Male with PMH of chronic sacral ulcer, CAD s/p 2c CABG 2005 and stent 2013, HTN, HLD, prostate CA sp prostatectomy, recent debridement of sacral decubitus ulcer with a skin flap closure 09/28/16, who was sent by Dr Loredo for evaluation of rectal wound. # Infected Chronic stave IV sacral gecubitus ulcer s/p skin flap closure 09/28/[address] Lawrence for the treatment of positive culture from SOCRATES E.coli and E. faecalis 10/14/16. As per the patient it was removed on 10/19/16 and to be replaced Received 2 doses of Zosyn and one dose of IV Vancomycin ID consult requested. Wound dressing # Hypertension-Stable Continue toprol xl 50 day # CAD Aspirin 81mg PO daily NTG patch PRN # Angina No acute symptoms at this time. Continue Ranolazine 1000mg PO BID # Hyperlipidemia Continue Lipitor 20mg PO HS # BPH Finasteride 5mg PO HS # FEN Not on IV Fluids Electrolytes to be repeated Sodium controlled diet # Prophylaxis For DVT: ON SCD's, can ambulate For GI: Not indicated # Dispo: Admitted in Med-Surg. Duration of stay unknown. Illness, Investigation and Plan of care explained to the patient. He verbalized understanding. Case seen and discussed with Dr. Perry. Visit type - Emergency Visit Emergency Visit: Yes ED Registration Date: 10/20/16 Care time: The patient presented to the Emergency Department on the above date and was hospitalized for further evaluation of their emergent condition. - New Patient This patient is new to me today: Yes Date on this admission: 10/21/16 - Critical Care Critical Care patient: No - Discharge Referral Referred to [facility] No
[2016-10-21] MEDS ORDERED: PATIENT'S OWN MEDICATION (NON-FORMULARY) (Finasteride [Finasteride] 1 MG) PO SCH (16:15)
--- NOTE | 2016-10-21 16:37 | CONSULT ---
Consult Consult Specialty:: infectious diseases Reason for Consultation:: wound infection - History of Present Illness Chief Complaint: wound infection History of Present Illness: 86 yo M with PMH of chronic sacral ulcer, CAD s/p 2c CABG 2005 and stend 2013, thn, hld, prostate CA sp prostatectomy, who is admitted because of wound cx growing ecoli and enterococcus post skin flap closure. according to the surgeon patient doing well post flap closure but the wound continued to drain copiously patient had a drain in the wound which was removed and also the cx were send which were growing 2 organism patient now admitted other than that patient does not have any other complaints wound has been dressed but i had discussion with the surgeon about the wound - History Source History Provided By: Patient, Family Member Limitations to Obtaining History: No Limitations - Alcohol/Substance Use Hx Alcohol Use: No - Smoking History Smoking history: Never smoked Have you smoked in the past 12 months: No Home Medications - Allergies Allergies/Adverse Reactions: Allergies Allergy/AdvReac Type Severity Reaction Status Date / Time No Known Allergies Allergy Verified 10/20/16 17:01 - Home Medications Home Medications: Ambulatory Orders Metoprolol Succinate [Toprol Xl] 50 mg PO DAILY 01/23/16 Nitroglycerin Patch [Nitro-Dur Patch -] 1 each TD DAILY 01/23/16 Ranolazine [Ranexa] 1 tab PO BID 01/23/16 Rosuvastatin Calcium [Crestor] 20 mg PO DAILY 01/23/16 Ferrous Sulfate 1 tab PO TID 05/26/16 Ascorbate Calcium [Vitamin C] 1,000 mg PO DAILY 09/24/16 Aspirin [ASA -] 81 mg PO DAILY 09/24/16 Folic Acid 0.4 mg PO DAILY 09/24/16 Finasteride 5 mg PO DAILY 10/20/16 Review of Systems - Review of Systems Constitutional: reports: No Symptoms Eyes: reports: No Symptoms HENT: reports: No Symptoms Neck: reports: No Symptoms Cardiovascular: reports: No Symptoms Respiratory: reports: No Symptoms Gastrointestinal: reports: No Symptoms Genitourinary: reports: No Symptoms Musculoskeletal: reports: Other Integumentary: reports: No Symptoms Neurological: reports: No Symptoms Hematology/Lymphatic: reports: No Symptoms Psychiatric: reports: No Symptoms Physical Exam Vital Signs: Vital Signs Temperature 97.4 F L 10/21/16 14:27 Pulse Rate 66 10/21/16 14:27 Respiratory Rate 22 10/21/16 14:27 Blood Pressure 119/66 10/21/16 14:27 O2 Sat by Pulse Oximetry (%) 98 10/20/16 23:26 Constitutional: Yes: Well Nourished, No Distress, Calm Cardiovascular: Yes: Regular Rate and Rhythm Respiratory: Yes: Regular, CTA Bilaterally Gastrointestinal: Yes: Normal Bowel Sounds, Soft Musculoskeletal: Yes: Other Extremities: Yes: Other Wound/Incision: Yes: Dressing Dry and Intact, Draining Neurological: Yes: Alert, Oriented Labs: CBC, BMP 10/21/16 06:30 10/21/16 06:30 Imaging - Results Chest X-ray: Report Reviewed, Image Reviewed Assessment/Plan thi patient has wound infection i jing seen the cx from the wound infection organism noted plan will start on zosyn will need it for some time will check the wound again tomorrow monitor drainage of the wound
[2016-10-21] MEDS: PIPERACILLIN/TAZOB 3.375 GM 50 ML IVPB SCH (17:32)
[2016-10-21] MEDS: ROSUVASTATIN CA 20 MG TABLET (FP) PO SCH (22:29)
[2016-10-21] MEDS: diphenhydrAMINE HCL 25 MG CAPSULE (FP) PO PRN (22:35)
[2016-10-22] MEDS ORDERED: VANCOMYCIN 1 GRAM (PRE-DOCKED) 1,000 MG/250 ML BAG IVPB ONE (01:50)
[2016-10-22] MEDS: PIPERACILLIN/TAZOB 3.375 GM 50 ML IVPB SCH ×3 (02:53→18:16)
[2016-10-22 07:57] LABS: MCH 32.4 pg (25.7-33.7); MCHC 34.3 g/dl (32.0-35.9); MEAN CELL VOLUME 94.4 fl (80-96); MEAN PLT VOLUME 6.9 fl (7.5-11.1); PLATELET COUNT 237 K/MM3 (134-434); RDW 14.2 % (11.9-15.9); WHITE BLOOD COUNT 5.6 K/mm3 (4.0-10.0)
[2016-10-22 08:40] LABS: ALBUMIN 3.2 g/dl (3.4-5.0); ANION GAP 8 (8-16); BILIRUBIN,TOTAL 0.6 mg/dL (0.2-1.0); CALCIUM 8.8 mg/dL (8.5-10.1); CO2 29 mmol/L (21-32); COCKROFT - GAULT 54.54; CREATININE 1.1 mg/dL (0.7-1.3); GLUCOSE,RANDOM 89 mg/dL (74-106); SGOT/AST 22 U/L (15-37); SGPT/ALT 16 U/L (12-78); TOT PROT 6.2 g/dl (6.4-8.2)
[2016-10-22 08:41] LABS: ALK PHOS 75 U/L (45-117)
[2016-10-22] MEDS ORDERED: RANOLAZINE E.R. 500 MG TABLET (FP) ONE ×2 (09:36→22:27)
[2016-10-22] MEDS: ASPIRIN 81 MG CHEWABLE TABLETS PO SCH (09:59)
[2016-10-22] MEDS: METOPROLOL SUCCINATE 50 MG TAB.SR.24H (FP) PO SCH (09:59)
[2016-10-22] MEDS: RANOLAZINE E.R. 1,000 MG TABLET (FP) PO SCH ×2 (09:59→22:34)
[2016-10-22] MEDS ORDERED: PT OWN MED DRAWER 7, Y5N ONE ×2 (10:06→10:10)
--- NOTE | 2016-10-22 10:26 | PN ---
Physical Exam: SUBJECTIVE: Patient seen and examined at bed side this morning. No complaints. Denies chest pain, sob, cough, palpitation, abdominal pain, nausea or vomiting. OBJECTIVE: Vital Signs Period Temp Pulse Resp BP Sys/Beaver Pulse Ox Last 24 Hr 97.4 F-98.4 F 64-67 18-22 110-127/51-74 97 GENERAL: Awake, alert, and fully oriented, in no acute distress. HEAD: Normal with no signs of trauma. EYES: Pupils equal, round and reactive to light, extraocular movements intact, sclera anicteric, conjunctiva clear. No lid lag. EARS, NOSE, THROAT: Moist mucous membranes. NECK: supple without JVD LUNGS: Breath sounds equal, clear to auscultation bilaterally HEART: Regular rate and rhythm, normal S1 and S2 ABDOMEN: Soft, nontender, not distended, normoactive bowel sounds MUSCULOSKELETAL: No CVA tenderness. clean dressing on decubitus region. SOCRATES in place. UPPER EXTREMITIES: 2+ pulses, warm, well-perfused. No cyanosis. No clubbing. No peripheral edema. LOWER EXTREMITIES: 2+ pulses, warm, well-perfused. No calf tenderness. No peripheral edema. NEUROLOGICAL: Cranial nerves II-XII intact. Normal speech. PSYCHIATRIC: Cooperative. Good eye contact. Appropriate mood and affect. SKIN: Warm, dry. the skin flap on sacral area, area looks very clean, no pus or drainage, no serosanguinous fluids, no tenderness. Laboratory Results - last 24 hr 10/22/16 10/22/16 06:30 06:30 WBC 5.6 RBC 3.52 L Hgb 11.4 L D Hct 33.3 L MCV 94.4 MCHC 34.3 RDW 14.2 Plt Count 237 MPV 6.9 L Sodium 136 Potassium 4.9 Chloride 99 Carbon Dioxide 29 Anion Gap 8 BUN 18 Creatinine 1.1 Creat Clearance w eGFR > 60 Random Glucose 89 Calcium 8.8 Total Bilirubin 0.6 AST 22 ALT 16 Alkaline Phosphatase 75 Total Protein 6.2 L Albumin 3.2 L Active Medications Generic Name Dose Route Start Last Admin Trade Name Freq PRN Reason Stop Dose Admin Aspirin 81 mg 10/21/16 10:00 10/22/16 09:59 Asa - PO 81 mg DAILY BRAULIO Administration Diphenhydramine HCl 25 mg 10/20/16 23:04 10/21/16 22:35 Benadryl - PO 25 mg HS PRN Administration INSOMNIA Finasteride 5 mg 10/22/16 10:00 Proscar - PO DAILY BRAULIO Piperacillin Sod/Tazobactam Sod 50 mls @ 100 mls/hr 10/21/16 18:00 10/22/16 09: 59 Zosyn 3.375gm Ivpb (Pre-Docked) IVPB 100 mls/hr Q8H-IV BRAULIO Administration Protocol Metoprolol Succinate 50 mg 10/21/16 10:00 10/22/16 09:59 Toprol Xl - PO 50 mg DAILY BRAULIO Administration Nitroglycerin 0.4 mg 10/21/16 10:00 10/21/16 10:18 Nitro-Dur Patch - TD 0.4 mg DAILY BRAULIO Administration Ranolazine 1,000 mg 10/21/16 10:00 10/22/16 09:59 Ranexa - PO 1,000 mg BID BRAULIO Administration Rosuvastatin Calcium 20 mg 10/20/16 23:15 10/21/16 22:29 Crestor - PO 20 mg HS BRAULIO Administration ASSESSMENT/PLAN: Patient is a 86 year old Male with PMH of chronic sacral ulcer, CAD s/p 2c CABG 2005 and stent 2013, HTN, HLD, prostate CA sp prostatectomy, recent debridement of sacral decubitus ulcer with a skin flap closure 09/28/16, who was sent by Dr Loredo for evaluation of rectal wound. # Infected Chronic stave IV sacral gecubitus ulcer s/p skin flap closure 09/28/16 On IV Zosyn 3rd dose Was sent by Dr. Lawrence for the treatment of positive culture from SOCRATES E.coli and E. faecalis 10/14/16. As per the patient it was removed on 10/19/16 and to be replaced ID consult appreciated Wound dressing Hyperbaric consult placed since patient has failed skin flap before. # Normocytic anemia H/H 11.4/33.3 Monitor H/H No hematuria or blood in stool as per the patient. # Hypertension-Stable Continue toprol xl 50 day # CAD Aspirin 81mg PO daily NTG patch PRN # Angina No acute symptoms at this time. Continue Ranolazine 1000mg PO BID # Hyperlipidemia Continue Lipitor 20mg PO HS # BPH Finasteride 5mg PO HS # FEN Not on IV Fluids Electrolytes to be repeated Sodium controlled diet # Prophylaxis For DVT: ON SCD's, can ambulate For GI: Not indicated # Dispo: Admitted in Med-Surg. Duration of stay unknown. All medications confirmed (called his pharmacy 10/21/2016) Illness, Investigation and Plan of care explained to the patient. He verbalized understanding. Case seen and discussed with Dr. Perry. Visit type - Emergency Visit Emergency Visit: Yes ED Registration Date: 10/20/16 Care time: The patient presented to the Emergency Department on the above date and was hospitalized for further evaluation of their emergent condition. - New Patient This patient is new to me today: No - Critical Care Critical Care patient: No - Discharge Referral Referred to [facility] No
[2016-10-22] MEDS: NITROGLYCERIN 0.4 MG/HOUR TD PATCH TD SCH (11:45)
--- NOTE | 2016-10-22 18:23 | PN ---
Progress Note (short form) - Note Progress Note: Patient known to me for recent surgery on his sacral/coccyx area with a flap closure Post Op patient continued to drain excessive fluid.100cc daily, SOCRATES was left in place for 10 days and than removed, cultures grew enterococus faecalis and ecoli Patient admitted for Infectious disease /wound care Awake alert, no pain, Local area no induration no erythema no pus, flap intact, all suture lines intact with no local reaction, swelling over the flap has decreased Dressing changed, no drainage noted even after actively compression New Silver dressing placed into the drain site 4cm Microbiology 10/20/16 19:00 Blood - Peripheral Venous Blood Culture - Preliminary Staphylococcus Coagulase Neg Selected Entries 10/22/16 10/22/16 06:00 15:44 Temperature 98.4 F 97.7 F Pulse Rate 64 66 Blood Pressure 110/51 107/63 Laboratory Tests 10/20/16 10/20/16 10/22/16 18:52 18:52 06:30 WBC 6.6 5.6 Hgb 11.2 L 11.4 L D Hct 33.2 L 33.3 L MPV 7.1 L Neutrophils % 74.5 Lymphocytes % 9.4 Monocytes % 12.4 H Eosinophils % 3.1 Alkaline Phosphatase 82 D Troponin I < 0.02 Total Protein 6.9 D Albumin 3.3 L D Plan : 1. Continue IV antibiotics as per Dr Diaz 2. Wound dressing with silver Counselling : Spoke with patient and son, educated about the bacterial type and reason for IV antibiotics All questions answered Patient nutrition status is satisfactory Total time 45 min
--- NOTE | 2016-10-22 18:29 | PN ---
Teaching Attending Note Name of Resident: Cecilia Menjivar ATTENDING PHYSICIAN STATEMENT I saw and evaluated the patient. I reviewed the resident's note and discussed the case with the resident. I agree with the resident's findings and plan as documented. SUBJECTIVE: Patient is feeling better with no acute distress. OBJECTIVE: Vital Signs Temperature 97.7 F 10/22/16 15:44 Pulse Rate 66 10/22/16 15:44 Respiratory Rate 20 10/22/16 15:44 Blood Pressure 107/63 10/22/16 15:44 O2 Sat by Pulse Oximetry (%) 97 10/22/16 09:00 CBCD WBC 5.6 K/mm3 (4.0-10.0) 10/22/16 06:30 RBC 3.52 M/mm3 (4.00-5.60) L 10/22/16 06:30 Hgb 11.4 GM/dL (11.7-16.9) L D 10/22/16 06:30 Hct 33.3 % (35.4-49) L 10/22/16 06:30 MCV 94.4 fl (80-96) 10/22/16 06:30 MCHC 34.3 g/dl (32.0-35.9) 10/22/16 06:30 RDW 14.2 % (11.9-15.9) 10/22/16 06:30 Plt Count 237 K/MM3 (134-434) 10/22/16 06:30 MPV 6.9 fl (7.5-11.1) L 10/22/16 06:30 CMP Sodium 136 mmol/L (136-145) 10/22/16 06:30 Potassium 4.9 mmol/L (3.5-5.1) 10/22/16 06:30 Chloride 99 mmol/L (98-107) 10/22/16 06:30 Carbon Dioxide 29 mmol/L (21-32) 10/22/16 06:30 Anion Gap 8 (8-16) 10/22/16 06:30 BUN 18 mg/dL (7-18) 10/22/16 06:30 Creatinine 1.1 mg/dL (0.7-1.3) 10/22/16 06:30 Creat Clearance w eGFR > 60 (>60) 10/22/16 06:30 Random Glucose 89 mg/dL (74-106) 10/22/16 06:30 Calcium 8.8 mg/dL (8.5-10.1) 10/22/16 06:30 Total Bilirubin 0.6 mg/dL (0.2-1.0) 10/22/16 06:30 AST 22 U/L (15-37) 10/22/16 06:30 ALT 16 U/L (12-78) 10/22/16 06:30 Alkaline Phosphatase 75 U/L (45-117) 10/22/16 06:30 Total Protein 6.2 g/dl (6.4-8.2) L 10/22/16 06:30 Albumin 3.2 g/dl (3.4-5.0) L 10/22/16 06:30 CARDIAC ENZYMES Creatine Kinase 64 IU/L (39-308) 10/20/16 18:52 Troponin I < 0.02 ng/ml (0.00-0.05) 10/20/16 18:52 Current Medications Generic Name Dose Route Start Last Admin Trade Name Jelaniq PRN Reason Stop Dose Admin Aspirin 81 mg 10/21/16 10:00 10/22/16 09:59 Asa - PO 81 mg DAILY BRAULIO Administration Diphenhydramine HCl 25 mg 10/20/16 23:04 10/21/16 22:35 Benadryl - PO 25 mg HS PRN Administration INSOMNIA Finasteride 5 mg 10/22/16 10:00 Proscar - PO DAILY BRAULIO Piperacillin Sod/Tazobactam Sod 50 mls @ 100 mls/hr 10/21/16 18:00 10/22/16 18: 16 Zosyn 3.375gm Ivpb (Pre-Docked) IVPB 100 mls/hr Q8H-IV BRAULIO Administration Protocol Metoprolol Succinate 50 mg 10/21/16 10:00 10/22/16 09:59 Toprol Xl - PO 50 mg DAILY BRAULIO Administration Nitroglycerin 0.4 mg 10/21/16 10:00 10/22/16 11:45 Nitro-Dur Patch - TD 0.4 mg DAILY BRAULIO Administration Ranolazine 1,000 mg 10/21/16 10:00 10/22/16 09:59 Ranexa - PO 1,000 mg BID BRAULIO Administration Rosuvastatin Calcium 20 mg 10/20/16 23:15 10/21/16 22:29 Crestor - PO 20 mg HS BRAULIO Administration Home Medications Medication Instructions Recorded Metoprolol Succinate [Toprol Xl] 50 mg PO DAILY 01/23/16 Nitroglycerin Patch [Nitro-Dur 1 each TD DAILY 01/23/16 Patch -] Ranolazine [Ranexa] 1 tab PO BID 01/23/16 Rosuvastatin Calcium [Crestor] 20 mg PO DAILY 01/23/16 Ferrous Sulfate 1 tab PO TID 05/26/16 Ascorbate Calcium [Vitamin C] 1,000 mg PO DAILY 09/24/16 Aspirin [ASA -] 81 mg PO DAILY 09/24/16 Folic Acid 0.4 mg PO DAILY 09/24/16 Finasteride 5 mg PO DAILY 10/20/16 Microbiology 10/20/16 19:00 Blood - Peripheral Venous Blood Culture - Preliminary Staphylococcus Coagulase Neg 10/20/16 23:40 Urine - Urine Clean Catch Urine Culture - Final NO GROWTH OBTAINED 10/20/16 19:00 Blood - Peripheral Venous Blood Culture - Preliminary NO GROWTH OBTAINED AFTER 24 HOURS, INCUBATION TO CONTINUE FOR 4 DAYS. ASSESSMENT AND PLAN: This is an 86 yo M with PMH of chronic sacral ulcer, CAD s/p 2c CABG 2005 and stent 2013, HTN, HLD, prostate CA sp prostatectomy, recent debridement of sacral decubitus ulcer with a skin flap closure 09/28/16, who presented fro evaluation of evaluation of rectal wound. # Stage IV sacral decubitus ulcer s/p skin flap closure 09/28/16, now infected on IV Zosyn;Plastic surgeon , ID on case, local wound care/daily dressing change. #CAD on Asa 81, NTG patch prn #HTN on toprol xl 50 daily #HLD resume lipitor 20 hs #BPH finasteride HS PPX teds, early ambulation hyperbaric consult
[2016-10-22] MEDS: FINASTERIDE 5 MG TABLET (FP) PO SCH (22:34)
[2016-10-22] MEDS: ROSUVASTATIN CA 20 MG TABLET (FP) PO SCH (22:34)
[2016-10-22] MEDS: diphenhydrAMINE HCL 25 MG CAPSULE (FP) PO PRN (22:35)
[2016-10-23] MEDS: PIPERACILLIN/TAZOB 3.375 GM 50 ML IVPB SCH ×3 (02:54→19:00)
[2016-10-23 08:28] LABS: MCH 32.1 pg (25.7-33.7); MCHC 34.4 g/dl (32.0-35.9); MEAN CELL VOLUME 93.5 fl (80-96); MEAN PLT VOLUME 6.7 fl (7.5-11.1); PLATELET COUNT 214 K/MM3 (134-434); RDW 13.9 % (11.9-15.9)
--- NOTE | 2016-10-23 10:01 | PN ---
Progress Note, Physician History of Present Illness: patient doing better no new issues patient states that he is feeling much better wound seen by his surgeon according to the notes now after abx hardly any drainage - Current Medication List Current Medications: Active Medications Aspirin (Asa -) 81 mg PO DAILY [facility] Last Admin: 10/22/16 09:59 Dose: 81 mg Diphenhydramine HCl (Benadryl -) 25 mg PO HS PRN PRN Reason: INSOMNIA Last Admin: 10/22/16 22:35 Dose: 25 mg Finasteride (Proscar -) 5 mg PO DAILY [facility] Last Admin: 10/22/16 22:34 Dose: 5 mg Piperacillin Sod/Tazobactam Sod (Zosyn 3.375gm Ivpb (Pre-Docked)) 50 mls @ 100 mls/hr IVPB Q8H-IV BRAULIO PRN Reason: Protocol Last Admin: 10/23/16 02:54 Dose: 100 mls/hr Metoprolol Succinate (Toprol Xl -) 50 mg PO DAILY [facility] Last Admin: 10/22/16 09:59 Dose: 50 mg Nitroglycerin (Nitro-Dur Patch -) 0.4 mg TD DAILY [facility] Last Admin: 10/22/16 11:45 Dose: 0.4 mg Ranolazine (Ranexa -) 1,000 mg PO BID [facility] Last Admin: 10/22/16 22:34 Dose: 1,000 mg Rosuvastatin Calcium (Crestor -) 20 mg PO HS [facility] Last Admin: 10/22/16 22:34 Dose: 20 mg - Objective Vital Signs: Vital Signs Temperature 97.9 F 10/23/16 09:45 Pulse Rate 72 10/23/16 09:45 Respiratory Rate 18 10/23/16 09:45 Blood Pressure 108/57 10/23/16 09:45 O2 Sat by Pulse Oximetry (%) 98 10/22/16 21:00 Constitutional: Yes: No Distress, Calm Cardiovascular: Yes: Regular Rate and Rhythm Respiratory: Yes: Regular, CTA Bilaterally Gastrointestinal: Yes: Normal Bowel Sounds, Soft Musculoskeletal: Yes: WNL Extremities: Yes: WNL Wound/Incision: Yes: Dressing Dry and Intact Neurological: Yes: Alert, Oriented Psychiatric: Yes: Alert, Oriented Labs: CBC, BMP 10/23/16 07:30 10/22/16 06:30 INR, PTT INR 1.14 (0.82-1.09) 10/20/16 18:52 Assessment/Plan wound infection sacral decubitus skin graft post plan continue abx will need it for at least 2 weeks
[2016-10-23] MEDS ORDERED: RANOLAZINE E.R. 500 MG TABLET (FP) ONE ×2 (11:42→21:35)
[2016-10-23] MEDS ORDERED: PT OWN MED DRAWER 7, Y5N ONE (11:43)
[2016-10-23] MEDS: ASPIRIN 81 MG CHEWABLE TABLETS PO SCH (11:53)
[2016-10-23] MEDS: METOPROLOL SUCCINATE 50 MG TAB.SR.24H (FP) PO SCH (11:53)
[2016-10-23] MEDS: RANOLAZINE E.R. 1,000 MG TABLET (FP) PO SCH ×2 (11:53→21:47)
[2016-10-23] MEDS: NITROGLYCERIN 0.4 MG/HOUR TD PATCH TD SCH (11:54)
--- NOTE | 2016-10-23 14:17 | PN ---
Physical Exam: SUBJECTIVE: Patient seen and examined Patient is feeling better with no acute distress. No shortness of breath, no nausea or vomiting. OBJECTIVE: Vital Signs Temperature 97.9 F 10/23/16 09:45 Pulse Rate 72 10/23/16 09:45 Respiratory Rate 18 10/23/16 09:45 Blood Pressure 108/57 10/23/16 09:45 O2 Sat by Pulse Oximetry (%) 98 10/22/16 21:00 GENERAL: The patient is awake, alert, and fully oriented, in no acute distress. HEAD: Normal with no signs of trauma. EYES: PERRL, extraocular movements intact, sclera anicteric, conjunctiva clear. No ptosis. ENT: Ears normal, nares patent, oropharynx clear without exudates, moist mucous membranes. NECK: Trachea midline, full range of motion, supple. LUNGS: Breath sounds equal, clear to auscultation bilaterally, no wheezes, no crackles, no accessory muscle use. HEART: Regular rate and rhythm, S1, S2 without murmur, rub or gallop. ABDOMEN: Soft, nontender, nondistended, normoactive bowel sounds, no guarding, no rebound, no hepatosplenomegaly, no masses. EXTREMITIES: 2+ pulses, warm, well-perfused, no edema. NEUROLOGICAL: Cranial nerves II through XII grossly intact. Normal speech, gait not observed. PSYCH: Normal mood, normal affect. SKIN: Warm, dry, normal turgor, no rashes or lesions noted; stage IV sacral decubitus ulcer Vital Signs Temperature 97.9 F 10/23/16 09:45 Pulse Rate 72 10/23/16 09:45 Respiratory Rate 18 10/23/16 09:45 Blood Pressure 108/57 10/23/16 09:45 O2 Sat by Pulse Oximetry (%) 98 10/22/16 21:00 CBCD WBC 6.0 K/mm3 (4.0-10.0) 10/23/16 07:30 RBC 3.35 M/mm3 (4.00-5.60) L 10/23/16 07:30 Hgb 10.7 GM/dL (11.7-16.9) L 10/23/16 07:30 Hct 31.3 % (35.4-49) L 10/23/16 07:30 MCV 93.5 fl (80-96) 10/23/16 07:30 MCHC 34.4 g/dl (32.0-35.9) 10/23/16 07:30 RDW 13.9 % (11.9-15.9) 10/23/16 07:30 Plt Count 214 K/MM3 (134-434) 10/23/16 07:30 MPV 6.7 fl (7.5-11.1) L 10/23/16 07:30 CMP Sodium 136 mmol/L (136-145) 10/22/16 06:30 Potassium 4.9 mmol/L (3.5-5.1) 10/22/16 06:30 Chloride 99 mmol/L (98-107) 10/22/16 06:30 Carbon Dioxide 29 mmol/L (21-32) 10/22/16 06:30 Anion Gap 8 (8-16) 10/22/16 06:30 BUN 18 mg/dL (7-18) 10/22/16 06:30 Creatinine 1.1 mg/dL (0.7-1.3) 10/22/16 06:30 Creat Clearance w eGFR > 60 (>60) 10/22/16 06:30 Random Glucose 89 mg/dL (74-106) 10/22/16 06:30 Calcium 8.8 mg/dL (8.5-10.1) 10/22/16 06:30 Total Bilirubin 0.6 mg/dL (0.2-1.0) 10/22/16 06:30 AST 22 U/L (15-37) 10/22/16 06:30 ALT 16 U/L (12-78) 10/22/16 06:30 Alkaline Phosphatase 75 U/L (45-117) 10/22/16 06:30 Total Protein 6.2 g/dl (6.4-8.2) L 10/22/16 06:30 Albumin 3.2 g/dl (3.4-5.0) L 10/22/16 06:30 CARDIAC ENZYMES Creatine Kinase 64 IU/L (39-308) 10/20/16 18:52 Troponin I < 0.02 ng/ml (0.00-0.05) 10/20/16 18:52 Active Medications Generic Name Dose Route Start Last Admin Trade Name Freq PRN Reason Stop Dose Admin Aspirin 81 mg 10/21/16 10:00 10/23/16 11:53 Asa - PO 81 mg DAILY BRAULIO Administration Diphenhydramine HCl 25 mg 10/20/16 23:04 10/22/16 22:35 Benadryl - PO 25 mg HS PRN Administration INSOMNIA Finasteride 5 mg 10/22/16 10:00 10/22/16 22:34 Proscar - PO 5 mg DAILY BRAULIO Administration Piperacillin Sod/Tazobactam Sod 50 mls @ 100 mls/hr 10/21/16 18:00 10/23/16 11: 54 Zosyn 3.375gm Ivpb (Pre-Docked) IVPB 100 mls/hr Q8H-IV BRAULIO Administration Protocol Metoprolol Succinate 50 mg 10/21/16 10:00 10/23/16 11:53 Toprol Xl - PO 50 mg DAILY BRAULIO Administration Nitroglycerin 0.4 mg 10/21/16 10:00 10/23/16 11:54 Nitro-Dur Patch - TD 0.4 mg DAILY BRAULIO Administration Ranolazine 1,000 mg 10/21/16 10:00 10/23/16 11:53 Ranexa - PO 1,000 mg BID BRAULIO Administration Rosuvastatin Calcium 20 mg 10/20/16 23:15 10/22/16 22:34 Crestor - PO 20 mg HS BRAULIO Administration Home Medications Medication Instructions Recorded Metoprolol Succinate [Toprol Xl] 50 mg PO DAILY 01/23/16 Nitroglycerin Patch [Nitro-Dur 1 each TD DAILY 01/23/16 Patch -] Ranolazine [Ranexa] 1 tab PO BID 01/23/16 Rosuvastatin Calcium [Crestor] 20 mg PO DAILY 01/23/16 Ferrous Sulfate 1 tab PO TID 05/26/16 Ascorbate Calcium [Vitamin C] 1,000 mg PO DAILY 09/24/16 Aspirin [ASA -] 81 mg PO DAILY 09/24/16 Folic Acid 0.4 mg PO DAILY 09/24/16 Finasteride 5 mg PO DAILY 10/20/16 Microbiology 10/20/16 19:00 Blood - Peripheral Venous Blood Culture - Preliminary Staphylococcus Coagulase Neg 10/22/16 03:00 Blood - Peripheral Venous Blood Culture - Preliminary NO GROWTH OBTAINED AFTER 24 HOURS, INCUBATION TO CONTINUE FOR 4 DAYS. 10/22/16 03:00 Blood - Peripheral Venous Blood Culture - Preliminary NO GROWTH OBTAINED AFTER 24 HOURS, INCUBATION TO CONTINUE FOR 4 DAYS. 10/20/16 19:00 Blood - Peripheral Venous Blood Culture - Preliminary NO GROWTH OBTAINED AFTER 48 HOURS, INCUBATION TO CONTINUE FOR 3 DAYS. 10/20/16 23:40 Urine - Urine Clean Catch Urine Culture - Final NO GROWTH OBTAINED ASSESSMENT/PLAN: This is an 86 yo M with PMH of chronic sacral ulcer, CAD s/p 2c CABG 2005 and stent 2013, HTN, HLD, prostate CA sp prostatectomy, recent debridement of sacral decubitus ulcer with a skin flap closure 09/28/16, who presented fro evaluation of evaluation of rectal wound. # Infected Stage IV sacral decubitus ulcer s/p skin flap closure 09/28/16, On IV zosyn; Plastic surgeon seen the patient, ID on case , local wound care/daily dressing change. Hyperbaric consult ordered. will repeat blood culture and as per ID patient will need it for at least 2 weeks #CAD on Asa 81, NTG patch prn #HTN on toprol xl 50 daily #HLD resume lipitor 20 hs #BPH finasteride HS Dvt Px: Teds, early ambulation Visit type - Emergency Visit Emergency Visit: Yes ED Registration Date: 10/20/16 Care time: The patient presented to the Emergency Department on the above date and was hospitalized for further evaluation of their emergent condition. - New Patient This patient is new to me today: No - Critical Care Critical Care patient: No
[2016-10-23] MEDS: ROSUVASTATIN CA 20 MG TABLET (FP) PO SCH (21:47)
[2016-10-23] MEDS: diphenhydrAMINE HCL 25 MG CAPSULE (FP) PO PRN (21:47)
[2016-10-23] MEDS: FINASTERIDE 5 MG TABLET (FP) PO SCH (21:50)
[2016-10-24] MEDS: PIPERACILLIN/TAZOB 3.375 GM 50 ML IVPB SCH ×3 (01:16→18:06)
--- NOTE | 2016-10-24 08:03 | PN ---
Physical Exam: SUBJECTIVE: Patient seen and examined at bed side. No complaints. Feels good. Denies chest pain, sob, cough, palpitation, abdominal pain, nausea or vomiting. Bowel/Bladder habit normal. Sleep/Appetite Normal. OBJECTIVE: Vital Signs Period Temp Pulse Resp BP Sys/Beaver Pulse Ox Last 24 Hr 97.5 F-98.6 F 69-76 16-20 108-144/57-78 97-98 GENERAL: Awake, alert, and fully oriented, in no acute distress. HEAD: Normal with no signs of trauma. EYES: Pupils equal, round and reactive to light, extraocular movements intact, sclera anicteric, conjunctiva clear. No lid lag. EARS, NOSE, THROAT: Moist mucous membranes. NECK: supple without JVD LUNGS: Breath sounds equal, clear to auscultation bilaterally HEART: Regular rate and rhythm, normal S1 and S2 ABDOMEN: Soft, nontender, not distended, normoactive bowel sounds MUSCULOSKELETAL: No CVA tenderness. clean dressing on decubitus region. SOCRATES in place. UPPER EXTREMITIES: 2+ pulses, warm, well-perfused. No cyanosis. No clubbing. No peripheral edema. LOWER EXTREMITIES: 2+ pulses, warm, well-perfused. No calf tenderness. No peripheral edema. NEUROLOGICAL: Cranial nerves II-XII intact. Normal speech. PSYCHIATRIC: Cooperative. Good eye contact. Appropriate mood and affect. SKIN: Warm, dry. the skin flap on sacral area, area looks very clean, no tenderness, slight amount of blood around the area as it was just cleaned and one stitch was applied, tegoderm in place (didn't remove it as it was just placed). Laboratory Results - last 24 hr 10/23/16 07:30 WBC 6.0 RBC 3.35 L Hgb 10.7 L Hct 31.3 L MCV 93.5 MCHC 34.4 RDW 13.9 Plt Count 214 MPV 6.7 L Active Medications Generic Name Dose Route Start Last Admin Trade Name Freq PRN Reason Stop Dose Admin Aspirin 81 mg 10/21/16 10:00 10/23/16 11:53 Asa - PO 81 mg DAILY BRAULIO Administration Diphenhydramine HCl 25 mg 10/20/16 23:04 10/23/16 21:47 Benadryl - PO 25 mg HS PRN Administration INSOMNIA Finasteride 5 mg 10/22/16 10:00 10/23/16 21:50 Proscar - PO 5 mg DAILY BRAULIO Administration Piperacillin Sod/Tazobactam Sod 50 mls @ 100 mls/hr 10/21/16 18:00 10/24/16 01: 16 Zosyn 3.375gm Ivpb (Pre-Docked) IVPB 100 mls/hr Q8H-IV BRAULIO Administration Protocol Metoprolol Succinate 50 mg 10/21/16 10:00 10/23/16 11:53 Toprol Xl - PO 50 mg DAILY BRAULIO Administration Nitroglycerin 0.4 mg 10/21/16 10:00 10/23/16 11:54 Nitro-Dur Patch - TD 0.4 mg DAILY BRAULIO Administration Ranolazine 1,000 mg 10/21/16 10:00 10/23/16 21:47 Ranexa - PO 1,000 mg BID BRAULIO Administration Rosuvastatin Calcium 20 mg 10/20/16 23:15 10/23/16 21:47 Crestor - PO 20 mg HS BRAULIO Administration ASSESSMENT/PLAN: Patient is a 86 year old Male with PMH of chronic sacral ulcer, CAD s/p 2c CABG 2005 and stent 2013, HTN, HLD, prostate CA sp prostatectomy, recent debridement of sacral decubitus ulcer with a skin flap closure 09/28/16, who was sent by Dr Loredo for evaluation of rectal wound. 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 Robledo changed the dressing today, put a small stitch at the wound site, tegaderm in place ID consult appreciated Wound dressing as per Dr. Robledo Hyperbaric consult placed since patient has failed skin flap before. # Normocytic anemia H/H 10.7/31.3 Monitor H/H No hematuria or blood in stool as per the patient. # Hypertension-Stable Continue toprol xl 50 day # CAD Aspirin 81mg PO daily NTG patch PRN # Angina No acute symptoms at this time. Continue Ranolazine 1000mg PO BID # Hyperlipidemia Continue Lipitor 20mg PO HS # BPH Finasteride 5mg PO HS # FEN Not on IV Fluids Electrolytes to be repeated Sodium controlled diet # Prophylaxis For DVT: ON SCD's, can ambulate For GI: Not indicated # Dispo: Admitted in Med-Surg. Duration of stay unknown. All medications confirmed (called his pharmacy 10/21/2016) Illness, Investigation and Plan of care explained to the patient. He verbalized understanding. Case seen and discussed with Dr. Perry. Visit type - Emergency Visit Emergency Visit: Yes ED Registration Date: 10/20/16 Care time: The patient presented to the Emergency Department on the above date and was hospitalized for further evaluation of their emergent condition. - New Patient This patient is new to me today: No - Critical Care Critical Care patient: No - Discharge Referral Referred to [facility] Med [facility] No
[2016-10-24] MEDS ORDERED: RANOLAZINE E.R. 500 MG TABLET (FP) ONE ×2 (10:14→21:37)
[2016-10-24] MEDS ORDERED: PT OWN MED DRAWER 7, Y5N ONE (10:15)
[2016-10-24] MEDS: FINASTERIDE 5 MG TABLET (FP) PO SCH ×2 (10:17→21:54)
[2016-10-24] MEDS: ASPIRIN 81 MG CHEWABLE TABLETS PO SCH (10:17)
[2016-10-24] MEDS: METOPROLOL SUCCINATE 50 MG TAB.SR.24H (FP) PO SCH (10:18)
[2016-10-24] MEDS: RANOLAZINE E.R. 1,000 MG TABLET (FP) PO SCH ×2 (10:18→21:54)
--- NOTE | 2016-10-24 10:56 | PN ---
Progress Note, Physician History of Present Illness: patient stable no new issues feels good - Current Medication List Current Medications: Active Medications Aspirin (Asa -) [address] [facility] Last Admin: 10/24/16 10:17 Dose: 81 mg Diphenhydramine HCl (Benadryl -) 25 mg PO HS PRN PRN Reason: INSOMNIA Last Admin: 10/23/16 21:47 Dose: 25 mg Finasteride (Proscar -) [address] [facility] Last Admin: 10/24/16 10:17 Dose: Not Given Piperacillin Sod/Tazobactam Sod (Zosyn 3.375gm Ivpb (Pre-Docked)) 50 mls @ 100 mls/hr IVPB Q8H-IV BRAULIO PRN Reason: Protocol Last Admin: 10/24/16 10:18 Dose: 100 mls/hr Metoprolol Succinate (Toprol Xl -) [address] [facility] Last Admin: 10/24/16 10:18 Dose: 50 mg Nitroglycerin (Nitro-Dur Patch -) 0.[address] [facility] Last Admin: 10/23/16 11:54 Dose: 0.4 mg Ranolazine (Ranexa -) 1,[address] [facility] Last Admin: 10/24/16 10:18 Dose: 1,000 mg Rosuvastatin Calcium (Crestor -) [address] [facility] Last Admin: 10/23/16 21:47 Dose: 20 mg - Objective Vital Signs: Vital Signs Temperature 97.6 F 10/24/16 06:00 Pulse Rate 76 10/24/16 06:00 Respiratory Rate 18 10/24/16 06:00 Blood Pressure 144/78 10/24/16 06:00 O2 Sat by Pulse Oximetry (%) 98 10/23/16 22:00 Constitutional: Yes: No Distress, Calm Cardiovascular: Yes: Regular Rate and Rhythm Respiratory: Yes: Regular, CTA Bilaterally Gastrointestinal: Yes: Normal Bowel Sounds, Soft Musculoskeletal: Yes: WNL Extremities: Yes: WNL Integumentary: Yes: Other Wound/Incision: Yes: Dressing Dry and Intact Neurological: Yes: Alert, Oriented Psychiatric: Yes: Alert, Oriented Labs: CBC, BMP 10/23/16 07:30 10/22/16 06:30 INR, PTT INR 1.14 (0.82-1.09) 10/20/16 18:52 Assessment/Plan wound infection sacral decubitus skin graft post plan continue abx plan given to the patient discussed in detail with the patient and family about the plan wound care
--- NOTE | 2016-10-24 11:49 | PN ---
Teaching Attending Note Name of Resident: Cecilia Menjivar ATTENDING PHYSICIAN STATEMENT I saw and evaluated the patient. I reviewed the resident's note and discussed the case with the resident. I agree with the resident's findings and plan as documented. SUBJECTIVE: Patient is comfortable with no acute distress. OBJECTIVE: Vital Signs Temperature 97.6 F 10/24/16 06:00 Pulse Rate 76 10/24/16 06:00 Respiratory Rate 18 10/24/16 06:00 Blood Pressure 144/78 10/24/16 06:00 O2 Sat by Pulse Oximetry (%) 98 10/23/16 22:00 CBCD WBC 6.0 K/mm3 (4.0-10.0) 10/23/16 07:30 RBC 3.35 M/mm3 (4.00-5.60) L 10/23/16 07:30 Hgb 10.7 GM/dL (11.7-16.9) L 10/23/16 07:30 Hct 31.3 % (35.4-49) L 10/23/16 07:30 MCV 93.5 fl (80-96) 10/23/16 07:30 MCHC 34.4 g/dl (32.0-35.9) 10/23/16 07:30 RDW 13.9 % (11.9-15.9) 10/23/16 07:30 Plt Count 214 K/MM3 (134-434) 10/23/16 07:30 MPV 6.7 fl (7.5-11.1) L 10/23/16 07:30 CMP Sodium 136 mmol/L (136-145) 10/22/16 06:30 Potassium 4.9 mmol/L (3.5-5.1) 10/22/16 06:30 Chloride 99 mmol/L (98-107) 10/22/16 06:30 Carbon Dioxide 29 mmol/L (21-32) 10/22/16 06:30 Anion Gap 8 (8-16) 10/22/16 06:30 BUN 18 mg/dL (7-18) 10/22/16 06:30 Creatinine 1.1 mg/dL (0.7-1.3) 10/22/16 06:30 Creat Clearance w eGFR > 60 (>60) 10/22/16 06:30 Random Glucose 89 mg/dL (74-106) 10/22/16 06:30 Calcium 8.8 mg/dL (8.5-10.1) 10/22/16 06:30 Total Bilirubin 0.6 mg/dL (0.2-1.0) 10/22/16 06:30 AST 22 U/L (15-37) 10/22/16 06:30 ALT 16 U/L (12-78) 10/22/16 06:30 Alkaline Phosphatase 75 U/L (45-117) 10/22/16 06:30 Total Protein 6.2 g/dl (6.4-8.2) L 10/22/16 06:30 Albumin 3.2 g/dl (3.4-5.0) L 10/22/16 06:30 CARDIAC ENZYMES Creatine Kinase 64 IU/L (39-308) 10/20/16 18:52 Troponin I < 0.02 ng/ml (0.00-0.05) 10/20/16 18:52 Current Medications Generic Name Dose Route Start Last Admin Trade Name Jelaniq PRN Reason Stop Dose Admin Aspirin 81 mg 10/21/16 10:00 10/24/16 10:17 Asa - PO 81 mg DAILY BRAULIO Administration Diphenhydramine HCl 25 mg 10/20/16 23:04 10/23/16 21:47 Benadryl - PO 25 mg HS PRN Administration INSOMNIA Finasteride 5 mg 10/22/16 10:00 10/24/16 10:17 Proscar - PO Not Given DAILY BRAULIO Piperacillin Sod/Tazobactam Sod 50 mls @ 100 mls/hr 10/21/16 18:00 10/24/16 10: 18 Zosyn 3.375gm Ivpb (Pre-Docked) IVPB 100 mls/hr Q8H-IV BRAULIO Administration Protocol Metoprolol Succinate 50 mg 10/21/16 10:00 10/24/16 10:18 Toprol Xl - PO 50 mg DAILY BRAULIO Administration Nitroglycerin 0.4 mg 10/21/16 10:00 10/23/16 11:54 Nitro-Dur Patch - TD 0.4 mg DAILY BRAULIO Administration Ranolazine 1,000 mg 10/21/16 10:00 10/24/16 10:18 Ranexa - PO 1,000 mg BID BRAULIO Administration Rosuvastatin Calcium 20 mg 10/20/16 23:15 10/23/16 21:47 Crestor - PO 20 mg HS BRAULIO Administration Home Medications Medication Instructions Recorded Metoprolol Succinate [Toprol Xl] 50 mg PO DAILY 01/23/16 Nitroglycerin Patch [Nitro-Dur 1 each TD DAILY 01/23/16 Patch -] Ranolazine [Ranexa] 1 tab PO BID 01/23/16 Rosuvastatin Calcium [Crestor] 20 mg PO DAILY 01/23/16 Ferrous Sulfate 1 tab PO TID 05/26/16 Ascorbate Calcium [Vitamin C] 1,000 mg PO DAILY 09/24/16 Aspirin [ASA -] 81 mg PO DAILY 09/24/16 Folic Acid 0.4 mg PO DAILY 09/24/16 Finasteride 5 mg PO DAILY 10/20/16 Microbiology 10/20/16 19:00 Blood - Peripheral Venous Blood Culture - Final Staph Hominis Sub Sp Hominis 10/22/16 03:00 Blood - Peripheral Venous Blood Culture - Preliminary NO GROWTH OBTAINED AFTER 48 HOURS, INCUBATION TO CONTINUE FOR 3 DAYS. 10/22/16 03:00 Blood - Peripheral Venous Blood Culture - Preliminary NO GROWTH OBTAINED AFTER 48 HOURS, INCUBATION TO CONTINUE FOR 3 DAYS. 10/20/16 19:00 Blood - Peripheral Venous Blood Culture - Preliminary NO GROWTH OBTAINED AFTER 72 HOURS, INCUBATION TO CONTINUE FOR 2 DAYS. 10/20/16 23:40 Urine - Urine Clean Catch Urine Culture - Final NO GROWTH OBTAINED PE: as per resident's note. ASSESSMENT AND PLAN: This is an 86 yo M with PMH of chronic sacral ulcer, CAD s/p 2c CABG 2005 and stent 2013, HTN, HLD, prostate CA sp prostatectomy, recent debridement of sacral decubitus ulcer with a skin flap closure 09/28/16, who presented fro evaluation of evaluation of rectal wound. # Infected Stage IV sacral decubitus ulcer s/p skin flap closure 09/28/16, On IV zosyn continue as per ID; Plastic surgeon seen the patient changed the dressing today , local wound care/daily dressing change. Hyperbaric consult ordered. As per ID IV antibiotics for total of 2 weeks. Discussed with ID #CAD on Asa 81, NTG patch prn #HTN on toprol xl 50 daily #HLD resume lipitor 20 hs #BPH finasteride HS Dvt Px: Teds, early ambulation
[2016-10-24] MEDS: NITROGLYCERIN 0.4 MG/HOUR TD PATCH TD SCH (13:14)
--- NOTE | 2016-10-24 16:05 | PN ---
Progress Note (short form) - Note Progress Note: FU regarding infected Post surgery for flap closure Awake alert, no pain, dressing changed, new dressing applied with Iodofrom gauze packing Depth still significant over 4 cm, drainage still present but has dramatically decreased since surgery used to be over hundred cc , now less than 25 cc, ( approximate visual ) no SOCRATES Selected Entries 10/24/16 14:33 Temperature 97.6 F Pulse Rate 73 Respiratory 20 Rate Blood Pressure 119/51 Laboratory Tests 10/20/16 10/23/16 18:52 07:30 WBC 6.0 RBC 3.35 L Hgb 10.7 L Hct 31.3 L MPV 6.7 L Monocytes % 12.4 H Plan : Continue IV antibiotics as per Dr Diaz Wound care on alternate days, wound size dilated at bedside to prevent early contraction and closure Packing in the most dependent part near the anal area and thus does tend to come out when patient moves his BM, advised to use gloved hand to hold while moving BM on the toilet Counselling
[2016-10-24] MEDS: diphenhydrAMINE HCL 25 MG CAPSULE (FP) PO PRN (21:54)
[2016-10-24] MEDS: ROSUVASTATIN CA 20 MG TABLET (FP) PO SCH (21:54)
[2016-10-25] MEDS: PIPERACILLIN/TAZOB 3.375 GM 50 ML IVPB SCH ×3 (01:49→17:25)
[2016-10-25 08:16] LABS: MCH 32.3 pg (25.7-33.7); MCHC 34.2 g/dl (32.0-35.9); MEAN CELL VOLUME 94.3 fl (80-96); MEAN PLT VOLUME 6.8 fl (7.5-11.1); PLATELET COUNT 194 K/MM3 (134-434); RDW 13.8 % (11.9-15.9); WHITE BLOOD COUNT 5.6 K/mm3 (4.0-10.0)
[2016-10-25 08:43] LABS: CALCIUM 8.5 mg/dL (8.5-10.1); COCKROFT - GAULT 54.3; CREATININE 1.1 mg/dL (0.7-1.3)
[2016-10-25] MEDS ORDERED: RANOLAZINE E.R. 500 MG TABLET (FP) ONE ×2 (09:56→20:12)
[2016-10-25] MEDS: ASPIRIN 81 MG CHEWABLE TABLETS PO SCH (10:24)
[2016-10-25] MEDS: METOPROLOL SUCCINATE 50 MG TAB.SR.24H (FP) PO SCH (10:24)
[2016-10-25] MEDS: RANOLAZINE E.R. 1,000 MG TABLET (FP) PO SCH ×2 (10:25→22:05)
--- NOTE | 2016-10-25 10:28 | PN ---
Progress Note (short form) - Note Progress Note: Patient is comfortable with no acute distress. Temperature 97.2 F L 10/25/16 06:00 Pulse Rate 75 10/25/16 06:00 Respiratory Rate 18 10/25/16 06:00 Blood Pressure 142/72 10/25/16 06:00 O2 Sat by Pulse Oximetry (%) 98 10/24/16 22:00 GENERAL: The patient is awake, alert, and fully oriented, in no acute distress. HEAD: Normal with no signs of trauma. EYES: PERRL, extraocular movements intact, sclera anicteric, conjunctiva clear. No ptosis. ENT: Ears normal, nares patent, oropharynx clear without exudates, moist mucous membranes. NECK: Trachea midline, full range of motion, supple. LUNGS: Breath sounds equal, clear to auscultation bilaterally, no wheezes, no crackles, no accessory muscle use. HEART: Regular rate and rhythm, S1, S2 without murmur, rub or gallop. ABDOMEN: Soft, nontender, nondistended, normoactive bowel sounds, no guarding, no rebound, no hepatosplenomegaly, no masses. EXTREMITIES: 2+ pulses, warm, well-perfused, no edema. NEUROLOGICAL: Cranial nerves II through XII grossly intact. Normal speech, gait not observed. PSYCH: Normal mood, normal affect. SKIN: Warm, dry, normal turgor, no rashes or lesions noted; stage IV sacral decubitus ulcer CBCD WBC 5.6 K/mm3 (4.0-10.0) 10/25/16 07:10 RBC 3.28 M/mm3 (4.00-5.60) L 10/25/16 07:10 Hgb 10.6 GM/dL (11.7-16.9) L 10/25/16 07:10 Hct 30.9 % (35.4-49) L 10/25/16 07:10 MCV 94.3 fl (80-96) 10/25/16 07:10 MCHC 34.2 g/dl (32.0-35.9) 10/25/16 07:10 RDW 13.8 % (11.9-15.9) 10/25/16 07:10 Plt Count 194 K/MM3 (134-434) 10/25/16 07:10 MPV 6.8 fl (7.5-11.1) L 10/25/16 07:10 CMP Sodium 135 mmol/L (136-145) L 10/25/16 07:10 Potassium 4.3 mmol/L (3.5-5.1) 10/25/16 07:10 Chloride 101 mmol/L (98-107) 10/25/16 07:10 Carbon Dioxide 24 mmol/L (21-32) 10/25/16 07:10 Anion Gap 10 (8-16) 10/25/16 07:10 BUN 17 mg/dL (7-18) 10/25/16 07:10 Creatinine 1.1 mg/dL (0.7-1.3) 10/25/16 07:10 Creat Clearance w eGFR > 60 (>60) 10/22/16 06:30 Random Glucose 80 mg/dL (74-106) 10/25/16 07:10 Calcium 8.5 mg/dL (8.5-10.1) 10/25/16 07:10 Total Bilirubin 0.6 mg/dL (0.2-1.0) 10/22/16 06:30 AST 22 U/L (15-37) 10/22/16 06:30 ALT 16 U/L (12-78) 10/22/16 06:30 Alkaline Phosphatase 75 U/L (45-117) 10/22/16 06:30 Total Protein 6.2 g/dl (6.4-8.2) L 10/22/16 06:30 Albumin 3.2 g/dl (3.4-5.0) L 10/22/16 06:30 CARDIAC ENZYMES Creatine Kinase 64 IU/L (39-308) 10/20/16 18:52 Troponin I < 0.02 ng/ml (0.00-0.05) 10/20/16 18:52 Current Medications Generic Name Dose Route Start Last Admin Trade Name Freq PRN Reason Stop Dose Admin Aspirin 81 mg 10/21/16 10:00 10/24/16 10:17 Asa - PO 81 mg DAILY BRAULIO Administration Diphenhydramine HCl 25 mg 10/20/16 23:04 10/24/16 21:54 Benadryl - PO 25 mg HS PRN Administration INSOMNIA Finasteride 5 mg 10/22/16 10:00 10/24/16 21:54 Proscar - PO 5 mg DAILY BRAULIO Administration Piperacillin Sod/Tazobactam Sod 50 mls @ 100 mls/hr 10/21/16 18:00 10/25/16 01: 49 Zosyn 3.375gm Ivpb (Pre-Docked) IVPB 100 mls/hr Q8H-IV BRAULIO Administration Protocol Metoprolol Succinate 50 mg 10/21/16 10:00 10/24/16 10:18 Toprol Xl - PO 50 mg DAILY BRAULIO Administration Nitroglycerin 0.4 mg 10/21/16 10:00 10/24/16 13:14 Nitro-Dur Patch - TD 0.4 mg DAILY BRAULIO Administration Ranolazine 1,000 mg 10/21/16 10:00 10/24/16 21:54 Ranexa - PO 1,000 mg BID BRAULIO Administration Rosuvastatin Calcium 20 mg 10/20/16 23:15 10/24/16 21:54 Crestor - PO 20 mg HS BRAULIO Administration Home Medications Medication Instructions Recorded Metoprolol Succinate [Toprol Xl] 50 mg PO DAILY 01/23/16 Nitroglycerin Patch [Nitro-Dur 1 each TD DAILY 01/23/16 Patch -] Ranolazine [Ranexa] 1 tab PO BID 01/23/16 Rosuvastatin Calcium [Crestor] 20 mg PO DAILY 01/23/16 Ferrous Sulfate 1 tab PO TID 05/26/16 Ascorbate Calcium [Vitamin C] 1,000 mg PO DAILY 09/24/16 Aspirin [ASA -] 81 mg PO DAILY 09/24/16 Folic Acid 0.4 mg PO DAILY 09/24/16 Finasteride 5 mg PO DAILY 10/20/16 10/20/16 19:00 Blood - Peripheral Venous Blood Culture - Final Staph Hominis Sub Sp Hominis 10/22/16 03:00 Blood - Peripheral Venous Blood Culture - Preliminary NO GROWTH OBTAINED AFTER 48 HOURS, INCUBATION TO CONTINUE FOR 3 DAYS. 10/22/16 03:00 Blood - Peripheral Venous Blood Culture - Preliminary NO GROWTH OBTAINED AFTER 48 HOURS, INCUBATION TO CONTINUE FOR 3 DAYS. 10/20/16 19:00 Blood - Peripheral Venous Blood Culture - Preliminary NO GROWTH OBTAINED AFTER 72 HOURS, INCUBATION TO CONTINUE FOR 2 DAYS. 10/20/16 23:40 Urine - Urine Clean Catch Urine Culture - Final NO GROWTH OBTAINED ASSESSMENT AND PLAN: This is an 86 yo M with PMH of chronic sacral ulcer, CAD s/p 2c CABG 2005 and stent 2013, HTN, HLD, prostate CA sp prostatectomy, recent debridement of sacral decubitus ulcer with a skin flap closure 09/28/16, who presented fro evaluation of evaluation of rectal wound. # Infected Stage IV sacral decubitus ulcer s/p skin flap closure 09/28/16, On IV zosyn continue as per ID; Plastic surgeon seen the patient changed the dressing today , local wound care/daily dressing change. Hyperbaric consult ordered. As per ID IV antibiotics for total of 2 week continue . Discussed with ID. possible Picc line in am, will discuss with the correction plan. #CAD on Asa 81, NTG patch prn #HTN on toprol xl 50 daily #HLD resume lipitor 20 hs #BPH finasteride HS Dvt Px: Teds, early ambulation Visit type - Emergency Visit Emergency Visit: Yes ED Registration Date: 10/20/16 Care time: The patient presented to the Emergency Department on the above date and was hospitalized for further evaluation of their emergent condition. - New Patient This patient is new to me today: No - Critical Care Critical Care patient: No
[2016-10-25] MEDS ORDERED: PT OWN MED DRAWER 7, Y5N ONE (10:30)
[2016-10-25] MEDS: NITROGLYCERIN 0.4 MG/HOUR TD PATCH TD SCH (10:33)
--- NOTE | 2016-10-25 16:16 | PN ---
Progress Note, Physician History of Present Illness: doing well no new issues picc line placed - Current Medication List Current Medications: Active Medications Aspirin (Asa -) 81 mg PO DAILY [facility] Last Admin: 10/25/16 10:24 Dose: 81 mg Diphenhydramine HCl (Benadryl -) 25 mg PO HS PRN PRN Reason: INSOMNIA Last Admin: 10/24/16 21:54 Dose: 25 mg Finasteride (Proscar -) 5 mg PO DAILY [facility] Last Admin: 10/24/16 21:54 Dose: 5 mg Piperacillin Sod/Tazobactam Sod (Zosyn 3.375gm Ivpb (Pre-Docked)) 50 mls @ 100 mls/hr IVPB Q8H-IV BRAULIO PRN Reason: Protocol Last Admin: 10/25/16 10:25 Dose: 100 mls/hr Metoprolol Succinate (Toprol Xl -) 50 mg PO DAILY [facility] Last Admin: 10/25/16 10:24 Dose: 50 mg Nitroglycerin (Nitro-Dur Patch -) 0.4 mg TD DAILY [facility] Last Admin: 10/25/16 10:33 Dose: 0.4 mg Ranolazine (Ranexa -) 1,000 mg PO BID [facility] Last Admin: 10/25/16 10:25 Dose: 1,000 mg Rosuvastatin Calcium (Crestor -) 20 mg PO HS [facility] Last Admin: 10/24/16 21:54 Dose: 20 mg - Objective Vital Signs: Vital Signs Temperature 97.2 F L 10/25/16 06:00 Pulse Rate 72 10/25/16 10:00 Respiratory Rate 18 10/25/16 10:00 Blood Pressure 118/68 10/25/16 10:00 O2 Sat by Pulse Oximetry (%) 94 L 10/25/16 09:00 Constitutional: Yes: No Distress, Calm HENT: Yes: Atraumatic Cardiovascular: Yes: Regular Rate and Rhythm Respiratory: Yes: Regular, CTA Bilaterally Gastrointestinal: Yes: Normal Bowel Sounds, Soft Musculoskeletal: Yes: WNL Extremities: Yes: WNL Wound/Incision: Yes: Dressing Dry and Intact Neurological: Yes: Alert, Oriented Psychiatric: Yes: Alert Labs: CBC, BMP 10/25/16 07:10 10/25/16 07:10 INR, PTT INR 1.14 (0.82-1.09) 10/20/16 18:52 Assessment/Plan wound infection sacral decubitus skin graft post plan continue abx as planned and duration
[2016-10-25] MEDS: ROSUVASTATIN CA 20 MG TABLET (FP) PO SCH (22:05)
[2016-10-25] MEDS: FINASTERIDE 5 MG TABLET (FP) PO SCH (22:05)
[2016-10-25] MEDS: diphenhydrAMINE HCL 25 MG CAPSULE (FP) PO PRN (22:06)
[2016-10-26] MEDS: PIPERACILLIN/TAZOB 3.375 GM 50 ML IVPB SCH ×3 (03:00→18:41)
[2016-10-26] MEDS ORDERED: RANOLAZINE E.R. 500 MG TABLET (FP) ONE ×2 (09:16→20:07)
[2016-10-26] MEDS: METOPROLOL SUCCINATE 50 MG TAB.SR.24H (FP) PO SCH (09:41)
[2016-10-26] MEDS: RANOLAZINE E.R. 1,000 MG TABLET (FP) PO SCH ×2 (09:41→22:08)
[2016-10-26] MEDS: ASPIRIN 81 MG CHEWABLE TABLETS PO SCH (09:41)
[2016-10-26] MEDS ORDERED: PT OWN MED DRAWER 7, Y5N ONE (09:43)
[2016-10-26] MEDS: NITROGLYCERIN 0.4 MG/HOUR TD PATCH TD SCH (09:47)
[2016-10-26] MEDS ORDERED: PICC LINE 8 ML FLUSH PROTOCOL IVPUSH PRN (10:27)
--- NOTE | 2016-10-26 12:29 | DS ---
Physical Exam: SUBJECTIVE: Patient seen and examined at bed side this morning. No complaints. Denies chest pain, sob, cough, palpitation, abdominal pain, nausea or vomiting. Bowel/Bladder habit normal. Sleep/Appetite Normal. OBJECTIVE: Vital Signs Period Temp Pulse Resp BP Sys/Beaver Pulse Ox Last 24 Hr 97.7 F-98.2 F 66-76 18-20 102-140/49-75 99-99 PHYSICAL EXAM GENERAL: Awake, alert, and fully oriented, in no acute distress. HEAD: Normal with no signs of trauma. EYES: Pupils equal, round and reactive to light, extraocular movements intact, sclera anicteric, conjunctiva clear. No lid lag. EARS, NOSE, THROAT: Moist mucous membranes. NECK: supple without JVD LUNGS: Breath sounds equal, clear to auscultation bilaterally HEART: Regular rate and rhythm, normal S1 and S2, no murmur. ABDOMEN: Soft, nontender, not distended, normoactive bowel sounds MUSCULOSKELETAL: No CVA tenderness. clean dressing on decubitus region. SOCRATES in place. UPPER EXTREMITIES: 2+ pulses, warm, well-perfused. No cyanosis. No clubbing. No peripheral edema. LOWER EXTREMITIES: 2+ pulses, warm, well-perfused. No calf tenderness. No peripheral edema. NEUROLOGICAL: Cranial nerves II-XII intact. Normal speech. PSYCHIATRIC: Cooperative. Good eye contact. Appropriate mood and affect. SKIN: Warm, dry. the skin flap on sacral area, area looks very clean, no tenderness, soakage in the diaper with small amount of serosanguinuous fluids, tegoderm in place. LABS Home Medications Medication Instructions Recorded Metoprolol Succinate [Toprol Xl] 50 mg PO DAILY 01/23/16 Nitroglycerin Patch [Nitro-Dur 1 each TD DAILY 01/23/16 Patch -] Ranolazine [Ranexa] 1 tab PO BID 01/23/16 Rosuvastatin Calcium [Crestor] 20 mg PO DAILY 01/23/16 Ferrous Sulfate 1 tab PO TID 05/26/16 Ascorbate Calcium [Vitamin C] 1,000 mg PO DAILY 09/24/16 Aspirin [ASA -] 81 mg PO DAILY 09/24/16 Folic Acid 0.4 mg PO DAILY 09/24/16 Finasteride 5 mg PO DAILY 10/20/16 Piperacillin/Tazob 3.375 gm [Zosyn 3.375 gm IVPB Q8H #27 bag 10/26/16 3.375GM Ivpb (Pre-Docked)] Laboratory Last Values WBC 5.6 K/mm3 (4.0-10.0) 10/25/16 07:10 RBC 3.28 M/mm3 (4.00-5.60) L 10/25/16 07:10 Hgb 10.6 GM/dL (11.7-16.9) L 10/25/16 07:10 Hct 30.9 % (35.4-49) L 10/25/16 07:10 MCV 94.3 fl (80-96) 10/25/16 07:10 MCHC 34.2 g/dl (32.0-35.9) 10/25/16 07:10 RDW 13.8 % (11.9-15.9) 10/25/16 07:10 Plt Count 194 K/MM3 (134-434) 10/25/16 07:10 MPV 6.8 fl (7.5-11.1) L 10/25/16 07:10 Neutrophils % 74.5 % (42.8-82.8) 10/20/16 18:52 Lymphocytes % 9.4 % (8-40) 10/20/16 18:52 Monocytes % 12.4 % (3.8-10.2) H 10/20/16 18:52 Eosinophils % 3.1 % (0-4.5) 10/20/16 18:52 Basophils % 0.6 % (0-2.0) 10/20/16 18:52 INR 1.14 (0.82-1.09) 10/20/16 18:52 PTT (Actin FS) 33.1 SECONDS (26.9-34.4) 10/20/16 18:52 Sodium 135 mmol/L (136-145) L 10/25/16 07:10 Potassium 4.3 mmol/L (3.5-5.1) 10/25/16 07:10 Chloride 101 mmol/L (98-107) 10/25/16 07:10 Carbon Dioxide 24 mmol/L (21-32) 10/25/16 07:10 Anion Gap 10 (8-16) 10/25/16 07:10 BUN 17 mg/dL (7-18) 10/25/16 07:10 Creatinine 1.1 mg/dL (0.7-1.3) 10/25/16 07:10 Creat Clearance w eGFR > 60 (>60) 10/22/16 06:30 Random Glucose 80 mg/dL (74-106) 10/25/16 07:10 Calcium 8.5 mg/dL (8.5-10.1) 10/25/16 07:10 Phosphorus 3.2 mg/dL (2.5-4.9) 10/21/16 06:30 Magnesium 2.4 mg/dL (1.8-2.4) 10/21/16 06:30 Total Bilirubin 0.6 mg/dL (0.2-1.0) 10/22/16 06:30 AST 22 U/L (15-37) 10/22/16 06:30 ALT 16 U/L (12-78) 10/22/16 06:30 Alkaline Phosphatase 75 U/L (45-117) 10/22/16 06:30 Creatine Kinase 64 IU/L (39-308) 10/20/16 18:52 Troponin I < 0.02 ng/ml (0.00-0.05) 10/20/16 18:52 Total Protein 6.2 g/dl (6.4-8.2) L 10/22/16 06:30 Albumin 3.2 g/dl (3.4-5.0) L 10/22/16 06:30 Urine Color Yellow 10/20/16 23:40 Urine Appearance Clear 10/20/16 23:40 Urine pH 5.0 (5.0-8.0) 10/20/16 23:40 Ur Specific [place] 1.015 (1.005-1.025) 10/20/16 23:40 Urine Protein Negative (NEGATIVE) 10/20/16 23:40 Urine Glucose (UA) Negative (NEGATIVE) 10/20/16 23:40 Urine Ketones Negative (NEGATIVE) 10/20/16 23:40 Urine Blood Negative (NEGATIVE) 10/20/16 23:40 Urine Nitrite Negative (NEGATIVE) 10/20/16 23:40 Urine Bilirubin Negative (NEGATIVE) 10/20/16 23:40 Urine Urobilinogen Negative E.U./dl (0.2-1.0) 10/20/16 23:40 Ur Leukocyte Esterase Negative (NEGATIVE) 10/20/16 23:40 Blood Type B POSITIVE 10/20/16 18:52 Antibody Screen Negative 10/20/16 18:52 Microbiology 10/22/16 03:00 Blood - Peripheral Venous Blood Culture - Final NO GROWTH AFTER 5 DAYS INCUBATION 10/22/16 03:00 Blood - Peripheral Venous Blood Culture - Final NO GROWTH AFTER 5 DAYS INCUBATION 10/23/16 14:30 Blood - Peripheral Venous Blood Culture - Preliminary NO GROWTH OBTAINED AFTER 72 HOURS, INCUBATION TO CONTINUE FOR 2 DAYS. 10/23/16 14:30 Blood - Peripheral Venous Blood Culture - Preliminary NO GROWTH OBTAINED AFTER 72 HOURS, INCUBATION TO CONTINUE FOR 2 DAYS. 10/20/16 19:00 Blood - Peripheral Venous Blood Culture - Final NO GROWTH AFTER 5 DAYS INCUBATION 10/20/16 19:00 Blood - Peripheral Venous Blood Culture - Final Staph Hominis Sub Sp Hominis 10/20/16 23:40 Urine - Urine Clean Catch Urine Culture - Final NO GROWTH OBTAINED HOSPITAL COURSE: Date of Admission:10/20/16 Date of Discharge: 10/27/16 Patient is a 86 year old Male with PMH of chronic sacral ulcer, CAD s/p 2c CABG 2005 and stent 2013, HTN, HLD, prostate CA sp prostatectomy, recent debridement of sacral decubitus ulcer with a skin flap closure 09/28/16, who was sent by Dr Robledo for evaluation of rectal wound. 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 Wound cleaning as per Dr. Robledo's recommendations. Was treated with IV Zosyn 3.75mg Q8H started on 10/21/2016 and to continue for total of 2 weeks. PICC line placed on (10/26/16) and sending the patient to [facility] until the antibiotics are completed. Normocytic anemia-H/H was stable and no transfusion was required. Hypertension-Stable. Continue toprol xl 50 day CAD- Continue Aspirin 81mg PO daily. NTG patch PRN Angina- No acute symptoms at this time. Continue Ranolazine 1000mg PO BID Hyperlipidemia-Continue Lipitor 20mg PO HS BPH- continue Finasteride 5mg PO HS All medications confirmed (called his pharmacy 10/21/2016) Plan of care explained to the patient. He verbalized understanding. Case seen and discussed with Dr. Keene Minutes to complete discharge: 45 Discharge Summary Reason For Visit: POSTOPERATIVE CELLULITIS OF SURGICAL WOUND Current Active Problems Wound infection after surgery (Chronic) Condition: Improved - Instructions Diet, Activity, Other Instructions: You were admitted for further treatment of Chronic stage IV sacral decubitus ulcer. You were treated with IV antibiotics and now sending to SNF with a PICC line for IV antibiotics. Abx to be finished on 11/04. Wound dressing as per Dr. Robledo's recommendations. Please continue taking all your home medications. If symptoms gets worse or if you develop any new symptoms, please return to the Emergency Department immediately. Referrals: Murray Robledo MD [Staff Physician] - [facility] - Home Medications Comprehensive Discharge Medication List: Ambulatory Orders Metoprolol Succinate [Toprol Xl] 50 mg PO DAILY 01/23/16 Nitroglycerin Patch [Nitro-Dur Patch -] 1 each TD DAILY 01/23/16 Ranolazine [Ranexa] 1 tab PO BID 01/23/16 Rosuvastatin Calcium [Crestor] 20 mg PO DAILY 01/23/16 Ferrous Sulfate 1 tab PO TID 05/26/16 Ascorbate Calcium [Vitamin C] 1,000 mg PO DAILY 09/24/16 Aspirin [ASA -] 81 mg PO DAILY 09/24/16 Folic Acid 0.4 mg PO DAILY 09/24/16 Finasteride 5 mg PO DAILY 10/20/16 Piperacillin/Tazob 3.375 gm [Zosyn 3.375GM Ivpb (Pre-Docked)] 3.375 gm IVPB Q8H #27 bag 10/26/16 This patient is new to me today: No Emergency Visit: Yes ED Registration Date: 10/20/16 Care time: The patient presented to the Emergency Department on the above date and was hospitalized for further evaluation of their emergent condition. Critical Care patient: No - Discharge Referral Referred to [facility] Med P.C.: No
--- NOTE | 2016-10-26 14:24 | PN ---
Progress Note, Physician History of Present Illness: doing well no new issues picc line placed - Current Medication List Current Medications: Active Medications Aspirin (Asa -) 81 mg PO DAILY [facility] Last Admin: 10/26/16 09:41 Dose: 81 mg Diphenhydramine HCl (Benadryl -) 25 mg PO HS PRN PRN Reason: INSOMNIA Last Admin: 10/25/16 22:06 Dose: 25 mg Finasteride (Proscar -) 5 mg PO DAILY [facility] Last Admin: 10/25/16 22:05 Dose: 5 mg IV Flush (Picc Line Flush) 8 ml IVPUSH PRN PRN PRN Reason: Protocol Piperacillin Sod/Tazobactam Sod (Zosyn 3.375gm Ivpb (Pre-Docked)) 50 mls @ 100 mls/hr IVPB Q8H-IV BRAULIO PRN Reason: Protocol Last Admin: 10/26/16 09:39 Dose: 100 mls/hr Metoprolol Succinate (Toprol Xl -) 50 mg PO DAILY [facility] Last Admin: 10/26/16 09:41 Dose: 50 mg Nitroglycerin (Nitro-Dur Patch -) 0.4 mg TD DAILY [facility] Last Admin: 10/26/16 09:47 Dose: 0.4 mg Ranolazine (Ranexa -) 1,000 mg PO BID [facility] Last Admin: 10/26/16 09:41 Dose: 1,000 mg Rosuvastatin Calcium (Crestor -) 20 mg PO HS [facility] Last Admin: 10/25/16 22:05 Dose: 20 mg - Objective Vital Signs: Vital Signs Temperature 97.9 F 10/26/16 06:00 Pulse Rate 76 10/26/16 10:00 Respiratory Rate 18 10/26/16 10:00 Blood Pressure 116/54 10/26/16 10:00 O2 Sat by Pulse Oximetry (%) 99 10/26/16 09:00 Constitutional: Yes: No Distress, Calm Neck: Yes: Supple, Trachea Midline Cardiovascular: Yes: Regular Rate and Rhythm Respiratory: Yes: Regular, CTA Bilaterally Gastrointestinal: Yes: Normal Bowel Sounds, Soft Musculoskeletal: Yes: WNL Extremities: Yes: WNL Wound/Incision: Yes: Dressing Dry and Intact Neurological: Yes: Alert, Oriented Psychiatric: Yes: Alert, Oriented Labs: CBC, BMP 10/25/16 07:10 10/25/16 07:10 INR, PTT INR 1.14 (0.82-1.09) 10/20/16 18:52 Assessment/Plan wound infection sacral decubitus skin graft post plan continue abx as planned and duration
--- NOTE | 2016-10-26 18:31 | PN ---
Teaching Attending Note Name of Resident: Cecilia Menjivar ATTENDING PHYSICIAN STATEMENT I saw and evaluated the patient. I reviewed the resident's note and discussed the case with the resident. I agree with the resident's findings and plan as documented. SUBJECTIVE: Comfortable with no acute distress. No fever or chills. OBJECTIVE: Vital Signs Temperature 97.9 F 10/26/16 06:00 Pulse Rate 76 10/26/16 10:00 Respiratory Rate 18 10/26/16 10:00 Blood Pressure 116/54 10/26/16 10:00 O2 Sat by Pulse Oximetry (%) 99 10/26/16 09:00 CBCD WBC 5.6 K/mm3 (4.0-10.0) 10/25/16 07:10 RBC 3.28 M/mm3 (4.00-5.60) L 10/25/16 07:10 Hgb 10.6 GM/dL (11.7-16.9) L 10/25/16 07:10 Hct 30.9 % (35.4-49) L 10/25/16 07:10 MCV 94.3 fl (80-96) 10/25/16 07:10 MCHC 34.2 g/dl (32.0-35.9) 10/25/16 07:10 RDW 13.8 % (11.9-15.9) 10/25/16 07:10 Plt Count 194 K/MM3 (134-434) 10/25/16 07:10 MPV 6.8 fl (7.5-11.1) L 10/25/16 07:10 CMP Sodium 135 mmol/L (136-145) L 10/25/16 07:10 Potassium 4.3 mmol/L (3.5-5.1) 10/25/16 07:10 Chloride 101 mmol/L (98-107) 10/25/16 07:10 Carbon Dioxide 24 mmol/L (21-32) 10/25/16 07:10 Anion Gap 10 (8-16) 10/25/16 07:10 BUN 17 mg/dL (7-18) 10/25/16 07:10 Creatinine 1.1 mg/dL (0.7-1.3) 10/25/16 07:10 Creat Clearance w eGFR > 60 (>60) 10/22/16 06:30 Random Glucose 80 mg/dL (74-106) 10/25/16 07:10 Calcium 8.5 mg/dL (8.5-10.1) 10/25/16 07:10 Total Bilirubin 0.6 mg/dL (0.2-1.0) 10/22/16 06:30 AST 22 U/L (15-37) 10/22/16 06:30 ALT 16 U/L (12-78) 10/22/16 06:30 Alkaline Phosphatase 75 U/L (45-117) 10/22/16 06:30 Total Protein 6.2 g/dl (6.4-8.2) L 10/22/16 06:30 Albumin 3.2 g/dl (3.4-5.0) L 10/22/16 06:30 CARDIAC ENZYMES Creatine Kinase 64 IU/L (39-308) 10/20/16 18:52 Troponin I < 0.02 ng/ml (0.00-0.05) 10/20/16 18:52 Current Medications Generic Name Dose Route Start Last Admin Trade Name Freq PRN Reason Stop Dose Admin Aspirin 81 mg 10/21/16 10:00 10/26/16 09:41 Asa - PO 81 mg DAILY BRAULIO Administration Diphenhydramine HCl 25 mg 10/20/16 23:04 10/25/16 22:06 Benadryl - PO 25 mg HS PRN Administration INSOMNIA Finasteride 5 mg 10/22/16 10:00 10/25/16 22:05 Proscar - PO 5 mg DAILY BRAULIO Administration IV Flush 8 ml 10/26/16 10:27 Picc Line Flush IVPUSH PRN PRN Protocol Piperacillin Sod/Tazobactam Sod 50 mls @ 100 mls/hr 10/21/16 18:00 10/26/16 09: 39 Zosyn 3.375gm Ivpb (Pre-Docked) IVPB 100 mls/hr Q8H-IV BRAULIO Administration Protocol Metoprolol Succinate 50 mg 10/21/16 10:00 10/26/16 09:41 Toprol Xl - PO 50 mg DAILY BRAULIO Administration Nitroglycerin 0.4 mg 10/21/16 10:00 10/26/16 09:47 Nitro-Dur Patch - TD 0.4 mg DAILY BRAULIO Administration Ranolazine 1,000 mg 10/21/16 10:00 10/26/16 09:41 Ranexa - PO 1,000 mg BID BRAULIO Administration Rosuvastatin Calcium 20 mg 10/20/16 23:15 10/25/16 22:05 Crestor - PO 20 mg HS BRAULIO Administration Home Medications Medication Instructions Recorded Metoprolol Succinate [Toprol Xl] 50 mg PO DAILY 01/23/16 Nitroglycerin Patch [Nitro-Dur 1 each TD DAILY 01/23/16 Patch -] Ranolazine [Ranexa] 1 tab PO BID 01/23/16 Rosuvastatin Calcium [Crestor] 20 mg PO DAILY 01/23/16 Ferrous Sulfate 1 tab PO TID 05/26/16 Ascorbate Calcium [Vitamin C] 1,000 mg PO DAILY 09/24/16 Aspirin [ASA -] 81 mg PO DAILY 09/24/16 Folic Acid 0.4 mg PO DAILY 09/24/16 Finasteride 5 mg PO DAILY 10/20/16 Piperacillin/Tazob 3.375 gm [Zosyn 3.375 gm IVPB Q8H #27 bag 10/26/16 3.375GM Ivpb (Pre-Docked)] 10/20/16 19:00 Blood - Peripheral Venous Blood Culture - Final Staph Hominis Sub Sp Hominis 10/22/16 03:00 Blood - Peripheral Venous Blood Culture - Preliminary NO GROWTH OBTAINED AFTER 48 HOURS, INCUBATION TO CONTINUE FOR 3 DAYS. 10/22/16 03:00 Blood - Peripheral Venous Blood Culture - Preliminary NO GROWTH OBTAINED AFTER 48 HOURS, INCUBATION TO CONTINUE FOR 3 DAYS. 10/20/16 19:00 Blood - Peripheral Venous Blood Culture - Preliminary NO GROWTH OBTAINED AFTER 72 HOURS, INCUBATION TO CONTINUE FOR 2 DAYS. 10/20/16 23:40 Urine - Urine Clean Catch Urine Culture - Final NO GROWTH OBTAINED ASSESSMENT AND PLAN: This is an 86 yo M with PMH of chronic sacral ulcer, CAD s/p 2c CABG 2005 and stent 2013, HTN, HLD, prostate CA sp prostatectomy, recent debridement of sacral decubitus ulcer with a skin flap closure 09/28/16, who presented fro evaluation of evaluation of rectal wound. # Infected Stage IV sacral decubitus ulcer s/p skin flap closure 09/28/16, On IV zosyn continue as per ID; will continue (total of 14 days) Discussed with regarding the discharge , patient accepted to go To [facility] since has preveliges to [facility], Also dr. Robledo would like to see the patient before going to [facility]. Wants to do another dressing and do Wound vac. before going to [facility] . will see the patient in am. Hyperbaric consult requested .Discussed with ID. possible Picc line . #CAD on Asa 81, NTG patch prn #HTN on toprol xl 50 daily #HLD resume lipitor 20 hs #BPH finasteride HS Dvt Px: Teds, early ambulation
--- NOTE | 2016-10-26 19:23 | PN ---
Progress Note (short form) - Note Progress Note: FU for lower sacral wound with post op Ecoli and Enterococcus Faecalis Patient awake alert no c/o pain . Received pic-line today for IV antibiotic Dressing changed, Iodoform packing removed along with suture New packing with silver applied, small portion left out for easy removal ' Drainage still present, decreasing Vital signs stable Selected Entries 10/20/16 09:04 Temperature 96.5 F L Pulse Rate 62 Respiratory 16 Rate Blood Pressure 120/60 Blood Pressure 80 Mean Blood Pressure Sitting Position Patient to be transferred for IV antibiotics to [facility] in Am, considering VAC application VAC or ZIYAD Suction device to reduce the cavity and expedite closure
[2016-10-26] MEDS: FINASTERIDE 5 MG TABLET (FP) PO SCH (22:08)
[2016-10-26] MEDS: ROSUVASTATIN CA 20 MG TABLET (FP) PO SCH (22:08)
[2016-10-26] MEDS: diphenhydrAMINE HCL 25 MG CAPSULE (FP) PO PRN (22:09)
[2016-10-27] MEDS: PIPERACILLIN/TAZOB 3.375 GM 50 ML IVPB SCH ×2 (02:25→09:58)
[2016-10-27] MEDS ORDERED: RANOLAZINE E.R. 500 MG TABLET (FP) ONE (09:55)
[2016-10-27] MEDS: RANOLAZINE E.R. 1,000 MG TABLET (FP) PO SCH (09:57)
[2016-10-27] MEDS: FINASTERIDE 5 MG TABLET (FP) PO SCH ×2 (09:57→09:59)
[2016-10-27] MEDS: ASPIRIN 81 MG CHEWABLE TABLETS PO SCH (09:57)
[2016-10-27] MEDS: METOPROLOL SUCCINATE 50 MG TAB.SR.24H (FP) PO SCH (09:58)
[2016-10-27] MEDS ORDERED: PT OWN MED DRAWER 7, Y5N ONE (10:01)
[2016-10-27] MEDS: NITROGLYCERIN 0.4 MG/HOUR TD PATCH TD SCH (10:01)
[2016-10-27 11:09] VITALS: BP 119/67; PULSE 4; TEMP 97.7
--- NOTE | 2016-10-27 14:43 | PN ---
Teaching Attending Note Name of Resident: Cecilia Menjivar ATTENDING PHYSICIAN STATEMENT I saw and evaluated the patient. I reviewed the resident's note and discussed the case with the resident. I agree with the resident's findings and plan as documented. SUBJECTIVE: no fever or chills. has no pain . no N/V OBJECTIVE: NAD CV : RRR Lungs : CTAB Ext : no edema dressing on sacral area was not removed. ASSESSMENT AND PLAN: 86 y/o man with h/o HTN, HLP, CAD s/p CABG who presented with sacral decub ulcer and had flap reconstruction sx 1- Infected sacral decub graft . wound not evaluated today. cont zosyn after dc f/u with dr. layton local wound care 2- H/o HTN, HLP, CAD: cont home meds dc home today
== END 2016-10-27 14:21 | DRG 862 ==
LOC: JER 16:53 → J5S 20:32
PROVIDERS: ADMIT Internal Medicine; ATTEND Internal Medicine
PROC: 02HV33Z Insertion of Infusion Device into Superior Vena Cava, Percutaneous Approach (ICD-10-PCS; principal; 2016-10-26)
PROC: B548ZZA Ultrasonography of Superior Vena Cava, Guidance (ICD-10-PCS; 2016-10-26)
DX: T81.4XXA Infection following a procedure, initial encounter (principal); L89.154 Pressure ulcer of sacral region, stage 4; B96.20 Unspecified Escherichia coli [E. coli] as the cause of diseases classified elsewhere; B95.2 Enterococcus as the cause of diseases classified elsewhere; Y83.4 Other reconstructive surgery as the cause of abnormal reaction of the patient, or of later complication, without mention of misadventure at the time of the procedure; Y92.9 Unspecified place or not applicable; D64.9 Anemia, unspecified; E78.5 Hyperlipidemia, unspecified; I10 Essential (primary) hypertension; I25.10 Atherosclerotic heart disease of native coronary artery without angina pectoris; Z95.1 Presence of aortocoronary bypass graft; Z95.5 Presence of coronary angioplasty implant and graft; Z85.46 Personal history of malignant neoplasm of prostate
CPT/HCPCS: 36415; 36569; 71010-TC; 77001-TC; 80048; 80053; 81003; 82550; 83735; 84100; 84484; 85025; 85027; 85610; 85730; 86850; 86900; 86901; 87040; 87086; 87186; 93005; 93010; 99283-25; C1751; G0463-25

== ENCOUNTER 2016-11-01 13:06 | Inpatient (IN) | payer OTHER, BC ==
[2016-11-01 13:21] VITALS: BMI 26.5
[2016-11-01] MEDS ORDERED: PIPERACILLIN/TAZOB 3.375 GM/50 ML PRE-DOCKED IVPB ONE (13:53)
--- NOTE | 2016-11-01 13:57 | PDOC ---
History of Present Illness - General Chief Complaint: Wound Stated Complaint: BOWEL PROBLEM Time Seen by Provider: 11/01/16 13:24 History Source: Patient Exam Limitations: No Limitations - History of Present Illness Initial Comments: 11/01/16 13:56 CHIEF COMPLAINT: Sent by plastic surgeon HISTORY OF PRESENT ILLNESS: This is an 86 year old male with a history of chronic sacral wound s/p debridement and flap closure on 09/28/16 (re-admitted with wound infection on 10/21, PICC placed, patient discharged to SNF on Zosyn), sent by his plastic surgeon today to rule out rectal fistula after his wound opened and began draining thick, "pinkish" fluid yesterday. The patient denies pain, fevers/chills, constipation, or any other symptoms. Other medical history includes CAD s/p CABG 2005 and stent 2013, HTN, HLD, and prostate CA s/p prostatectomy. Plastic surgeon is Dr. Robledo. REVIEW OF SYSTEMS: GENERAL/CONSTITUTIONAL: No fever or chills. No weakness. No weight change. HEAD, EYES, EARS, NOSE AND THROAT: No change in vision. No ear pain or discharge. No sore throat. CARDIOVASCULAR: No chest pain or palpitations. RESPIRATORY: No cough, wheezing, or shortness of breath. GASTROINTESTINAL: No nausea, vomiting, diarrhea or constipation. GENITOURINARY: No dysuria, frequency, or change in urination. MUSCULOSKELETAL: No joint or muscle swelling or pain. No neck or back pain. SKIN: See HPI. NEUROLOGIC: No headache, vertigo, loss of consciousness, or loss of sensation. PSYCHIATRIC: No depression or anxiety. ENDOCRINE: No increased thirst. No abnormal weight change. HEMATOLOGIC/LYMPHATIC: No anemia, easy bleeding, or history of blood clots. ALLERGIC/IMMUNOLOGIC: No hives or skin allergy. No latex allergy. PHYSICAL EXAM: GENERAL: The patient is awake, alert, and fully oriented, in no acute distress. ENT: Pupils equal, round and reactive to light, extraocular movements intact, sclera anicteric, conjunctiva clear. Neck supple. LUNGS: Clear to auscultation bilaterally. Normal excursion. No respiratory distress or use of accessory muscles. CV: RRR, S1/S2, no MRG. Cap refill < 2 sec. ABDOMEN: Soft, non-distended, non-tender. EXTREMITIES: Normal range of motion, no edema. NEUROLOGICAL: Normal speech, normal gait. CN II-XII grossly intact. PSYCH: Normal mood, normal affect. SKIN: Warm, dry, normal turgor, no rashes or lesions noted. RECTAL: Open, tunneling sacral wound with foam packing in place. No tenderness. No surrounding erythema. Past History - Past Medical History Allergies/Adverse Reactions: Allergies Allergy/AdvReac Type Severity Reaction Status Date / Time No Known Allergies Allergy Verified 11/01/16 13:22 Home Medications: Ambulatory Orders Metoprolol Succinate [Toprol Xl] 50 mg PO DAILY 01/23/16 Nitroglycerin Patch [Nitro-Dur Patch -] 1 each TD DAILY 01/23/16 Ranolazine [Ranexa] 1 tab PO BID 01/23/16 Rosuvastatin Calcium [Crestor] 20 mg PO DAILY 01/23/16 Ferrous Sulfate 1 tab PO TID 05/26/16 Ascorbate Calcium [Vitamin C] 1,000 mg PO DAILY 09/24/16 Aspirin [ASA -] 81 mg PO DAILY 09/24/16 Folic Acid 0.4 mg PO DAILY 09/24/16 Finasteride 5 mg PO DAILY 10/20/16 Piperacillin/Tazob 3.375 gm [Zosyn 3.375GM Ivpb (Pre-Docked)] 3.375 gm IVPB Q8H #27 bag 10/26/16 Anemia: Yes Asthma: No Cancer: No Cardiac Disorders: Yes (angina) CVA: No COPD: No CHF: No Dementia: No Diabetes: No GI Disorders: No Disorders: No HTN: Yes Hypercholesterolemia: Yes Liver Disease: No Seizures: No Thyroid Disease: No - Surgical History Abdominal Surgery: Yes (HERNIA) Appendectomy: No Cardiac Surgery: Yes (2005 double bypass) Cholecystectomy: No Lung Surgery: No Neurologic Surgery: No Orthopedic Surgery: Yes (left knee partial replacement,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) - Psycho/Social/Smoking Cessation Hx Anxiety: No Suicidal Ideation: No Smoking History: Never smoked Have you smoked in the past 12 months: No Information on smoking cessation initiated: No Hx Alcohol Use: No Drug/Substance Use Hx: No Substance Use Type: None *Physical Exam - Vital Signs Last Vital Signs Temp Pulse Resp BP Pulse Ox 98.6 F 69 20 106/52 100 11/01/16 13:17 11/01/16 13:17 11/01/16 13:17 11/01/16 13:17 11/01/16 13:17 ED Treatment Course - LABORATORY CBC & Chemistry Diagram: 11/01/16 13:45 11/01/16 13:45 - RADIOLOGY Radiology Studies Ordered: Category Date Time Status PELVIS CT W/WO CONTRAST [CT] Stat CT Scan 11/01/16 13:47 Ordered Medical Decision Making - Medical Decision Making 11/01/16 15:46 A/P: 86 year old male with non-healing sacral wound, now draining, concern for rectal fistula. 1. Basic labs 2. CT Pelvis with/without contrast per plastic surgery recommendations 3. Foam packing removed per plastic surgery recommendations 4. Admit 11/01/16 17:33 CTAP: Contrast communicating between anorectal junction and a collection posterior to the anus, and the midline measuring approximately 3 x 3 cm in RADHA and transverse dimension and 5cm in longitudinal dimension consistent with rectal fistula and posterior perianal abscess. Accepted for admission by Dr. Mustafa. *DC/Admit/Observation/Transfer Diagnosis at time of Disposition: Wound of sacral region, Rectal fistula, Perianal abscess Surgical complication Qualifiers: Surgical complication system/body Area: subcutaneous tissue - Discharge Dispostion Admit: Yes
[2016-11-01 14:59] LABS: BASOPHIL 0.9 % (0-2.0); EOSINOPHIL 4.7 % (0-4.5); MCH 32.5 pg (25.7-33.7); MCHC 34.1 g/dl (32.0-35.9); MEAN CELL VOLUME 95.5 fl (80-96); PLATELET COUNT 161 K/MM3 (134-434); RDW 13.7 % (11.9-15.9); WHITE BLOOD COUNT 4.6 K/mm3 (4.0-10.0)
[2016-11-01] MEDS: SODIUM CHLORIDE 1,000 ML IV SCH ×2 (15:00→23:02)
[2016-11-01 15:33] LABS: BILIRUBIN,TOTAL 0.5 mg/dL (0.2-1.0); CALCIUM 8.4 mg/dL (8.5-10.1); COCKROFT - GAULT 51.47; CREATININE 1.2 mg/dL (0.7-1.3); TOT PROT 5.9 g/dl (6.4-8.2)
[2016-11-01 16:06] LABS: INR 1.16 (0.82-1.09); PROTHROMBIN TIME (PATIENT) 12.8 SEC (9.98-11.88)
--- NOTE | 2016-11-01 16:12 | EKG ---
Test Reason : Blood Pressure : / mmHG Vent. Rate : 064 BPM Atrial Rate : 117 BPM P-R Int : 000 ms QRS Dur : 082 ms QT Int : 434 ms P-R-T Axes : 000 035 064 degrees QTc Int : 447 ms LIKELY SINUS RHYTHM WHEN COMPARED WITH ECG OF 20-OCT-2016 19:16, NO SIGNIFICANT CHANGE WAS FOUND Confirmed by GINGER MILLER MD ([id number]) on 11/01/2016 4:12:16 PM Referred By: Confirmed By:GINGER MILLER MD
--- NOTE | 2016-11-01 18:56 | PN ---
Progress Note (short form) - Note Progress Note: Patient known to me, post excision lower back chronic wound, sacral/coccyx operated over 3 weeks ago, excised ulcer based, reconstructed with a local fascial flap. Post had excessive drainage 100cc fluid, no odor, no faecal matter , SOCRATES was left in 10 days, removed, and C&S showed Ecoli and enterococus faecalis. Patient is on IV antibiotic for 0ver [address] Diaz treating physician. Drain site has continue to drain brownish in color, no odor, no faecal matter Patient never had pain, has been moving bowels regularly without any discomfort. VAC was tried but unsuccessful due to location. CT Scan is positive for fistula with communication. Selected Entries 11/01/16 13:17 Temperature 98.6 F Pulse Rate 69 Respiratory 20 Rate Blood Pressure 106/52 Blood Pressure 70 Mean O2 Sat by Pulse 100 Oximetry (%) Weight 185 lb Laboratory Tests 11/01/16 13:45 WBC 4.6 Hgb 10.8 L Hct 31.6 L Monocytes % 13.5 H Eosinophils % 4.7 H , Plan : Admit under Medicine Consult General surgery, I spoke with Dr Oden, he will see patient in AM Spoke with patient and his Eloisa and described findings on CT Scan....
[2016-11-01] MEDS ORDERED: ACETAMINOPHEN 325 MG TABLET (FP) PO PRN (21:07)
--- NOTE | 2016-11-01 21:12 | HP ---
Admitting History and Physical - Primary Care Physician PCP: Jessica Mustafa - Admission History of Present Illness: 86 year old male with a history of chronic sacral wound s/p debridement and flap closure on 09/28/16 (re-admitted with wound infection on 10/21, PICC placed, patient discharged to SNF on Zosyn), sent by his plastic surgeon today to rule out rectal fistula after his wound opened and began draining thick, "pinkish" fluid yesterday. The patient denies pain, fevers/chills, constipation, or any other symptoms. Other medical history includes CAD s/p CABG 2005 and stent 2013, HTN, HLD, and prostate CA s/p prostatectomy. Plastic surgeon is Dr. Robledo. - Smoking History Smoking history: Never smoked Have you smoked in the past 12 months: No - Alcohol/Substance Use Hx Alcohol Use: No Home Medications - Allergies Allergies/Adverse Reactions: Allergies Allergy/AdvReac Type Severity Reaction Status Date / Time No Known Allergies Allergy Verified 11/01/16 13:22 - Home Medications Home Medications: Ambulatory Orders Metoprolol Succinate [Toprol Xl] 50 mg PO DAILY 01/23/16 Nitroglycerin Patch [Nitro-Dur Patch -] 1 each TD DAILY 01/23/16 Ranolazine [Ranexa] 1 tab PO BID 01/23/16 Rosuvastatin Calcium [Crestor] 20 mg PO DAILY 01/23/16 Ferrous Sulfate 1 tab PO TID 05/26/16 Ascorbate Calcium [Vitamin C] 1,000 mg PO DAILY 09/24/16 Aspirin [ASA -] 81 mg PO DAILY 09/24/16 Folic Acid 0.4 mg PO DAILY 09/24/16 Finasteride 5 mg PO DAILY 10/20/16 Piperacillin/Tazob 3.375 gm [Zosyn 3.375GM Ivpb (Pre-Docked)] 3.375 gm IVPB Q8H #27 bag 10/26/16 Amoxicillin/Potassium Clav [Augmentin 875-125 Tablet] 1 each PO BID #28 tablet 11/03/16 Review of Systems - Review of Systems Constitutional: denies: No Symptoms, Chills, Diaphoresis, Fever, Lethargy, Loss of Appetite, Malaise, Night Sweats, Unintentional Wgt. Loss, Weakness, Other Eyes: denies: No Symptoms, Blind Spots, Blurred Vision, Double Vision, Eye Pain , Floaters, Photophobia, Recent Change in Vision, Other HENT: denies: No Symptoms, Difficult Swallowing, Ear Discharge, Ear Pain, Epistaxis, Gingival Bleeding, Hearing Loss, Mouth Swelling, Nasal Congestion, Ocular Prosthesis, Throat Pain, Toothache, Ringing in Ears, Other Neck: denies: No Symptoms, Decreased ROM, Lumps, Pain on Movement, Stiffness, Swollen Glands, Tenderness, Other Cardiovascular: denies: No Symptoms, Chest Pain, Edema, Palpitations, Shortness of Breath, Other Respiratory: denies: No Symptoms, Cough, Exercise Intolerance, Hemoptysis, Orthopnea, PND, Snoring, SOB, SOB on Exertion, Wheezing, Other Gastrointestinal: denies: No Symptoms, Abdominal Pain, Bloating, Constipation, Diarrhea, Dysphagia, Indigestion, Melena, Nausea, Rectal Bleeding, Vomiting, Vomiting Blood, Other Musculoskeletal: reports: Other (chronic low back pain) Neurological: denies: No Symptoms, Change in LOC, Change in Speech, Confusion, Dizziness, Headache, Incoordination, Numbness, Parasthesia, Pre-Existing Deficit , Seizure, Syncope, Tremors, Unsteady Gait, Weakness, Other Physical Examination Vital Signs: Vital Signs Temperature 97.7 F 11/01/16 19:40 Pulse Rate 70 11/01/16 19:40 Respiratory Rate 18 11/01/16 19:40 Blood Pressure 122/68 11/01/16 19:40 O2 Sat by Pulse Oximetry (%) 97 11/01/16 19:40 Constitutional: Yes: No Distress HENT: Yes: Atraumatic Neck: Yes: Supple Cardiovascular: Yes: Regular Rate and Rhythm Respiratory: Yes: CTA Bilaterally Gastrointestinal: Yes: Normal Bowel Sounds Extremities: Yes: WNL Edema: No Peripheral Pulses WNL: Yes Wound/Incision: Yes: Dressing Dry and Intact, Other (lower back chronic wound) Neurological: Yes: Alert, Oriented Imaging - Results Cat Scan: Report Reviewed Problem List - Problems (1) Perianal abscess Assessment/Plan: on iv abx surgery consult Code(s): K61.0 - ANAL ABSCESS (2) CAD (coronary artery disease) Code(s): I25.10 - ATHSCL HEART DISEASE OF [place] CORONARY ARTERY W/O ANG PCTRS (3) HLD (hyperlipidemia) Assessment/Plan: on meds Code(s): E78.5 - HYPERLIPIDEMIA, UNSPECIFIED (4) HTN (hypertension) Code(s): I10 - ESSENTIAL (PRIMARY) HYPERTENSION (5) Sacral decubitus ulcer, stage IV Code(s): L89.154 - PRESSURE ULCER OF [place]CR[place] REGION, STAGE 4 Assessment/Plan Laboratory Tests 11/01/16 11/01/16 11/01/16 13:45 13:45 13:45 WBC 4.6 RBC 3.31 L Hgb 10.8 L Hct 31.6 L MCV 95.5 MCHC 34.1 RDW 13.7 Plt Count 161 MPV 7.0 L Neutrophils % 68.0 Lymphocytes % 12.9 D Monocytes % 13.5 H Eosinophils % 4.7 H Basophils % 0.9 INR 1.16 H Sodium 139 Potassium 4.2 Chloride 102 Carbon Dioxide 26 Anion Gap 11 BUN 22 H D Creatinine 1.2 Creat Clearance w eGFR 57.27 Random Glucose 105 D Calcium 8.4 L Total Bilirubin 0.5 AST 18 ALT 16 Alkaline Phosphatase 59 D Total Protein 5.9 L Albumin 3.0 L Blood Type Antibody Screen 11/01/16 13:45 WBC RBC Hgb Hct MCV MCHC RDW Plt Count MPV Neutrophils % Lymphocytes % Monocytes % Eosinophils % Basophils % INR Sodium Potassium Chloride Carbon Dioxide Anion Gap BUN Creatinine Creat Clearance w eGFR Random Glucose Calcium Total Bilirubin AST ALT Alkaline Phosphatase Total Protein Albumin Blood Type B POSITIVE Antibody Screen Negative Active Medications Generic Name Dose Route Start Last Admin Trade Name Freq PRN Reason Stop Dose Admin Acetaminophen 650 mg 11/01/16 21:07 Tylenol - PO Q6H PRN FEVER OR PAIN Aspirin 81 mg 11/02/16 10:00 Asa - PO DAILY BRAULIO Sodium Chloride 1,000 mls @ 100 mls/hr 11/01/16 15:45 11/01/16 15:00 Normal Saline - IV 100 mls/hr ASDIR BRAULIO Administration Metoprolol Succinate 50 mg 11/02/16 10:00 Toprol Xl - PO DAILY BRAULIO Non-Formulary Medication 1,000 mg 11/02/16 10:00 Ascorbate Calcium [Vitamin C] PO DAILY BRAULIO Non-Formulary Medication 1 tab 11/01/16 22:00 Ferrous Sulfate PO TID BRAULIO Non-Formulary Medication 5 mg 11/02/16 10:00 Finasteride [Finasteride] PO DAILY BRAULIO Non-Formulary Medication 0.4 mg 11/02/16 10:00 Folic Acid [Folic Acid] PO DAILY BRAULIO Ranolazine mg 11/01/16 22:00 Ranexa - PO BID BRAULIO Rosuvastatin Calcium 20 mg 11/02/16 10:00 Crestor - PO DAILY BRAULIO
[2016-11-01] MEDS ORDERED: RANOLAZINE E.R. 500 MG TABLET (FP) ONE (21:50)
[2016-11-01] MEDS: RANOLAZINE E.R. 1,000 MG TABLET (FP) PO SCH (22:00)
[2016-11-01] MEDS: FERROUS SO4 325 MG TABLET (FP) PO SCH (22:00)
[2016-11-01] MEDS: PIPERACILLIN/TAZOB 3.375 GM/50 ML PRE-DOCKED IVPB SCH (23:02)
[2016-11-01] MEDS: diphenhydrAMINE HCL 25 MG CAPSULE (FP) PO PRN (23:28)
[2016-11-02] MEDS ORDERED: PT OWN MED DRAWER 7, Y5N ONE (06:11)
[2016-11-02] MEDS: FERROUS SO4 325 MG TABLET (FP) PO SCH ×3 (06:20→21:43)
[2016-11-02] MEDS: PIPERACILLIN/TAZOB 3.375 GM/50 ML PRE-DOCKED IVPB SCH (06:20)
[2016-11-02 07:11] LABS: BASOPHIL 0.9 % (0-2.0); EOSINOPHIL 4.9 % (0-4.5); MCH 32.5 pg (25.7-33.7); MCHC 34.5 g/dl (32.0-35.9); MEAN CELL VOLUME 94.1 fl (80-96); MEAN PLT VOLUME 6.9 fl (7.5-11.1); NEUTROPHILS 69.7 % (42.8-82.8); PLATELET COUNT 154 K/MM3 (134-434); RDW 13.8 % (11.9-15.9); WHITE BLOOD COUNT 6.1 K/mm3 (4.0-10.0)
[2016-11-02 07:37] LABS: ALBUMIN 3.1 g/dl (3.4-5.0); BILIRUBIN,TOTAL 0.5 mg/dL (0.2-1.0); CALCIUM 8.5 mg/dL (8.5-10.1); COCKROFT - GAULT 51.47; CREATININE 1.2 mg/dL (0.7-1.3); TOT PROT 5.7 g/dl (6.4-8.2)
[2016-11-02] MEDS ORDERED: RANOLAZINE E.R. 500 MG TABLET (FP) ONE ×2 (09:40→21:42)
[2016-11-02] MEDS ORDERED: ROSUVASTATIN CA 10 MG TABLET (FP) ONE (09:41)
[2016-11-02] MEDS: RANOLAZINE E.R. 1,000 MG TABLET (FP) PO SCH ×2 (09:46→21:44)
[2016-11-02] MEDS: ROSUVASTATIN CA 20 MG TABLET (FP) PO SCH (09:46)
[2016-11-02] MEDS: METOPROLOL SUCCINATE 50 MG TAB.SR.24H (FP) PO SCH (09:46)
[2016-11-02] MEDS: ASPIRIN 81 MG CHEWABLE TABLETS PO SCH (09:46)
[2016-11-02] MEDS: ASCORBIC ACID 500 MG TABLET (FP) PO SCH (09:46)
[2016-11-02] MEDS: PIPERACILLIN/TAZOB 2.25 GM 50 ML IVPB SCH ×2 (15:25→17:37)
--- NOTE | 2016-11-02 15:47 | CONSULT ---
Consult Consult Specialty:: infectious diseases Referred by:: dr Mustafa Reason for Consultation:: rectal fistula,wound infection - History of Present Illness History of Present Illness: 86 year old male with a history of chronic sacral wound s/p debridement and flap closure on 09/28/16 (re-admitted with wound infection on 10/21, PICC placed, patient discharged to SNF on Zosyn), patient still drainag and decision was taken to do imaging studies which shows rectal fistula plan is to get the patient operated patient admitted for abx and to get into surgery currently patient is stable with no new issues - History Source History Provided By: Patient Limitations to Obtaining History: No Limitations - Alcohol/Substance Use Hx Alcohol Use: No - Smoking History Smoking history: Never smoked Have you smoked in the past 12 months: No Home Medications - Allergies Allergies/Adverse Reactions: Allergies Allergy/AdvReac Type Severity Reaction Status Date / Time No Known Allergies Allergy Verified 11/01/16 13:22 - Home Medications Home Medications: Ambulatory Orders Metoprolol Succinate [Toprol Xl] 50 mg PO DAILY 01/23/16 Nitroglycerin Patch [Nitro-Dur Patch -] 1 each TD DAILY 01/23/16 Ranolazine [Ranexa] 1 tab PO BID 01/23/16 Rosuvastatin Calcium [Crestor] 20 mg PO DAILY 01/23/16 Ferrous Sulfate 1 tab PO TID 05/26/16 Ascorbate Calcium [Vitamin C] 1,000 mg PO DAILY 09/24/16 Aspirin [ASA -] 81 mg PO DAILY 09/24/16 Folic Acid 0.4 mg PO DAILY 09/24/16 Finasteride 5 mg PO DAILY 10/20/16 Piperacillin/Tazob 3.375 gm [Zosyn 3.375GM Ivpb (Pre-Docked)] 3.375 gm IVPB Q8H #27 bag 10/26/16 Review of Systems - Review of Systems Constitutional: reports: No Symptoms Eyes: reports: No Symptoms HENT: reports: No Symptoms Neck: reports: No Symptoms Cardiovascular: reports: No Symptoms Respiratory: reports: No Symptoms Gastrointestinal: reports: No Symptoms Genitourinary: reports: No Symptoms Integumentary: reports: Wound (draiang sacral wound) Neurological: reports: No Symptoms Endocrine: reports: No Symptoms Hematology/Lymphatic: reports: No Symptoms Psychiatric: reports: No Symptoms Physical Exam Vital Signs: Vital Signs Temperature 97.6 F 11/02/16 14:00 Pulse Rate 68 11/02/16 14:00 Respiratory Rate 17 11/02/16 14:00 Blood Pressure 107/52 11/02/16 09:44 O2 Sat by Pulse Oximetry (%) 97 11/02/16 09:00 Constitutional: Yes: Well Nourished, No Distress, Calm Cardiovascular: Yes: Regular Rate and Rhythm Respiratory: Yes: Regular, CTA Bilaterally Gastrointestinal: Yes: Normal Bowel Sounds, Soft ...Rectal Exam: Yes: Other (sacral wound drainaing) Renal/: Yes: Other Musculoskeletal: Yes: WNL Extremities: Yes: WNL Wound/Incision: Yes: Dressing Dry and Intact Neurological: Yes: Alert, Oriented Psychiatric: Yes: Alert, Oriented Labs: CBC, BMP 11/02/16 06:05 11/02/16 06:05 Imaging - Results Cat Scan: Report Reviewed, Image Reviewed Assessment/Plan 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
--- NOTE | 2016-11-02 16:44 | PN ---
Progress Note (short form) - Note Progress Note: surgery pt seen and examined. full consult dictated. 86m with prostatectomy 16 years ago, developed spontaneous wound on lower sacrum with bad odor. The wound never healed and he eventually went for flap closure. The drain from the surgery persisted with fluid drainage from the SOCR[place] and fecal organisms were cultured. 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 Pt has been on abx but never had a fever or systemic symptoms of infection. on exam the flap is well healed. anal digital exam is normal without tenderness. there is a 1cm opening at 6:00 2cm from anus with purulent drainage. The opening probes 3 cm parallel to the anus. 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 Pt appears to have a chronic tract and unclear advantage of continued abx. 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 He may require colostomy and complex surgery with possible loss of continence. No surgical contraindication to discharge and elective colorectal eval.
--- NOTE | 2016-11-02 17:26 | PN ---
Progress Note, Physician History of Present Illness: doing well - Current Medication List Current Medications: Active Medications Acetaminophen (Tylenol -) 650 mg PO Q6H PRN PRN Reason: FEVER OR PAIN Ascorbic Acid (Vitamin C -) 1,000 mg PO DAILY [facility] Last Admin: 11/02/16 09:46 Dose: 1,000 mg Aspirin (Asa -) 81 mg PO DAILY [facility] Last Admin: 11/02/16 09:46 Dose: 81 mg Diphenhydramine HCl (Benadryl -) 25 mg PO HS PRN Last Admin: 11/01/16 23:28 Dose: 25 mg Ferrous Sulfate (Feosol -) 325 mg PO TID [facility] Last Admin: 11/02/16 15:26 Dose: 325 mg Sodium Chloride (Normal Saline -) 1,000 mls @ 100 mls/hr IV ASDIR [facility] Last Admin: 11/01/16 23:02 Dose: 100 mls/hr Piperacillin Sod/Tazobactam Sod (Zosyn 2.25gm Ivpb (Pre-Docked)) 50 mls @ 100 mls/hr IVPB Q8H-IV BRAULIO PRN Reason: Protocol Last Admin: 11/02/16 15:25 Dose: 100 mls/hr Metoprolol Succinate (Toprol Xl -) 50 mg PO DAILY [facility] Last Admin: 11/02/16 09:46 Dose: 50 mg Non-Formulary Medication (Finasteride [Finasteride]) 5 mg PO DAILY [facility] Non-Formulary Medication (Folic Acid [Folic Acid]) 0.4 mg PO DAILY [facility] Ranolazine (Ranexa -) 1,000 mg PO BID [facility] Last Admin: 11/02/16 09:46 Dose: 1,000 mg Rosuvastatin Calcium (Crestor -) 20 mg PO DAILY [facility] Last Admin: 11/02/16 09:46 Dose: 20 mg - Objective Vital Signs: Vital Signs Temperature 97.6 F 11/02/16 14:00 Pulse Rate 68 11/02/16 14:00 Respiratory Rate 17 11/02/16 14:00 Blood Pressure 107/52 11/02/16 09:44 O2 Sat by Pulse Oximetry (%) 97 11/02/16 09:00 Constitutional: Yes: No Distress HENT: Yes: Atraumatic Neck: Yes: Supple Cardiovascular: Yes: Regular Rate and Rhythm Respiratory: Yes: CTA Bilaterally Gastrointestinal: Yes: Normal Bowel Sounds Extremities: Yes: WNL Wound/Incision: Yes: Dressing Dry and Intact (wound at the buttocks) Neurological: Yes: Alert, Oriented Labs: CBC, BMP 11/02/16 06:05 11/02/16 06:05 INR, PTT INR 1.16 (0.82-1.09) H 11/01/16 13:45 Problem List - Problems (1) Perianal abscess Assessment/Plan: on iv abx surgery consult Code(s): K61.0 - ANAL ABSCESS (2) CAD (coronary artery disease) Code(s): I25.10 - ATHSCL HEART DISEASE OF [place] CORONARY ARTERY W/O ANG PCTRS (3) HLD (hyperlipidemia) Assessment/Plan: on meds Code(s): E78.5 - HYPERLIPIDEMIA, UNSPECIFIED (4) HTN (hypertension) Assessment/Plan: on meds stable Code(s): I10 - ESSENTIAL (PRIMARY) HYPERTENSION (5) Sacral decubitus ulcer, stage IV Assessment/Plan: dr james on board id consult Code(s): L89.154 - PRESSURE ULCER OF SACRAL REGION, STAGE 4 Assessment/Plan
--- NOTE | 2016-11-02 20:08 | CONS ---
DATE OF CONSULTATION: 11/02/2016 REASON FOR CONSULTATION: Fistula en ano, perirectal abscess. REQUESTING PROVIDER: Murray Robledo MD This was a consultation where I was called as an emergency room consultation. The patient subsequently was admitted to the hospital and seen while on the inpatient floor. BRIEF HISTORY: This is an 86-year-old male who 16 years after having prostate cancer surgery developed a spontaneous opening over his sacrum. He was not hospitalized prior to this and had no risk factors for decubitus ulcer. This would was unable to be healed and had a terrible odor to it. Eventually, he was evaluated by the Plastic Surgery service and had a closure flap done. A drain was placed at the time of surgery; however, because of persistent drainage, the drain was left in for a long time. When eventually removed, there was noted to be fecal bacteria cultured. The patient was treated on long-term antibiotic for presumed infection. Yesterday, because of persistent drainage, the patient went for a CT scan, with rectal contrast, which demonstrated a fistula en ano in the posterior anorectal junction and a possible perirectal abscess. He was admitted, placed on intravenous antibiotic with Zosyn and a surgical consultation was requested. The patient denies recent weight loss. He states his last colonoscopy was 2 years ago, which was unremarkable. PAST MEDICAL HISTORY: Significant for coronary artery disease, hypertension, hyperlipidemia, prostate cancer, chronic sacral wound. PAST SURGICAL HISTORY: Includes the flap closure, a coronary artery bypass graft in 2005, stent placement in 2013, as well as the prostatectomy in 2000. SOCIAL HISTORY: Negative for alcohol, negative for tobacco. ALLERGIES: No known drug allergies. HOME MEDICATIONS: Include Toprol, Ranexa, Crestor, iron, nitroglycerin, aspirin, folate, Zosyn, and finasteride. FAMILY HISTORY: Noncontributory. REVIEW OF SYSTEMS: General: Denies fatigue or malaise. Cardiac: Denies chest pain or palpitations. Respiratory: Denies shortness of breath or wheeze. Gastrointestinal: As stated in the HPI. Denies diarrhea. Denies loss of appetite. Genitourinary: Denies dysuria. Musculoskeletal: Denies joint pain and joint swelling. Psychiatric: Denies hearing pressuring voices. PHYSICAL EXAMINATION: General: This is a well-developed, well-nourished, 86-year-old male, in no distress. Vital signs: He is afebrile. HEENT: Head is normocephalic. Sclerae are anicteric. Neck: Supple. Chest: Clear. Abdomen: Soft, nontender. Rectal: Anal examination done digitally is unremarkable without masses appreciated, without tenderness, without fluctuance noted. At the 6 o'clock position, there is an opening approximately 2 cm from the anus that is approximately 2 cm wide. It tracks approximately 3 cm deep and there appears to be purulent material coming from within here. There is fibrotic tissue around it and this is, per Dr. Robledo, the site where the Ant-Flynn drain was left in. Extremities: Have trace edema. LABORATORY: White blood cell count is 6.1 without a shift. His imaging is as stated in the HPI. ASSESSMENT: This is an 86-year-old male who developed a spontaneous wound over his sacrum, which was unable to close and had a bad odor to it. After undergoing a flap closure of this area, he persistently drained and appeared to have infections from the surgery. 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 I suspect that overall and all along that his initial wound opening was actually a fistula and that there was never a flap infection, but simply the fistula tract was diverted by the flap placement. He has now formed a new chronic exit site at the Ant-Flynn drain site and he currently has no systemic signs of infection. It is unclear of any benefit of continued antibiotic therapy. At this point, the patient strongly wishes to be seen in [place] by a colorectal specialist. 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 It is reasonable for him to be discharged and to be followed by this problem by his own colorectal surgeon. He may ultimately require a diverting colostomy, possible mucosal flap advancement versus a fistulotomy. Unfortunately, the patient may develop incontinence or may require a permanent colostomy. At this point, he is nontoxic and has no systemic infection. His flap is well-healed. I discussed my findings with Dr. Robledo, the patient, as well as his . DO ANNABEL FARIA/[id number]
[2016-11-02] MEDS: diphenhydrAMINE HCL 25 MG CAPSULE (FP) PO PRN (21:43)
[2016-11-03] MEDS: PIPERACILLIN/TAZOB 2.25 GM 50 ML IVPB SCH ×3 (01:28→17:55)
[2016-11-03] MEDS: FERROUS SO4 325 MG TABLET (FP) PO SCH ×3 (06:09→22:14)
[2016-11-03] MEDS ORDERED: RANOLAZINE E.R. 500 MG TABLET (FP) ONE ×2 (09:23→22:12)
[2016-11-03] MEDS ORDERED: ROSUVASTATIN CA 10 MG TABLET (FP) ONE (09:24)
[2016-11-03] MEDS: ASCORBIC ACID 500 MG TABLET (FP) PO SCH (09:25)
[2016-11-03] MEDS: FOLIC ACID 1 MG TABLET (FP) PO SCH (09:25)
[2016-11-03] MEDS: ASPIRIN 81 MG CHEWABLE TABLETS PO SCH (09:25)
[2016-11-03] MEDS: FINASTERIDE 5 MG TABLET (FP) PO SCH ×2 (09:25→09:30)
[2016-11-03] MEDS: RANOLAZINE E.R. 1,000 MG TABLET (FP) PO SCH ×2 (09:27→22:15)
[2016-11-03] MEDS: ROSUVASTATIN CA 20 MG TABLET (FP) PO SCH (09:27)
[2016-11-03] MEDS: METOPROLOL SUCCINATE 50 MG TAB.SR.24H (FP) PO SCH (09:27)
--- NOTE | 2016-11-03 09:32 | PN ---
Progress Note (short form) - Note Progress Note: FU patient admitted at [place] Awake alert , comfortable. 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 to past H/O pilonidal cyst, during surgery excessive scarring was present Drainage is decrease significantly still brownish tinge, no faecal matter noted Discussed with patient my clinical observation...IV antibiotics have helped as the drainage though present but decreased by 2/3., patient advised to inform the Phlebotomy Director in [place] regarding progress made before undergoing major rectal surgery Major concern is the External opening closing and fluid collection, if that occurs the opening has to be dilated again , usually patient has tolerated without anesthesia Patient may continue to follow up in Wound clinic at [facility]. All questions answered
--- NOTE | 2016-11-03 16:21 | PN ---
Progress Note, Physician History of Present Illness: doing well no new issues - Current Medication List Current Medications: Active Medications Acetaminophen (Tylenol -) 650 mg PO Q6H PRN PRN Reason: FEVER OR PAIN Ascorbic Acid (Vitamin C -) 1,000 mg PO DAILY [facility] Last Admin: 11/03/16 09:25 Dose: 1,000 mg Aspirin (Asa -) 81 mg PO DAILY [facility] Last Admin: 11/03/16 09:25 Dose: 81 mg Diphenhydramine HCl (Benadryl -) 25 mg PO HS PRN Last Admin: 11/02/16 21:43 Dose: 25 mg Ferrous Sulfate (Feosol -) 325 mg PO TID [facility] Last Admin: 11/03/16 14:42 Dose: 325 mg Finasteride (Proscar -) 5 mg PO DAILY [facility] Last Admin: 11/03/16 09:30 Dose: Not Given Folic Acid (Folic Acid -) 0.5 mg PO DAILY [facility] Last Admin: 11/03/16 09:25 Dose: 0.5 mg Sodium Chloride (Normal Saline -) 1,000 mls @ 100 mls/hr IV ASDIR [facility] Last Admin: 11/01/16 23:02 Dose: 100 mls/hr Piperacillin Sod/Tazobactam Sod (Zosyn 2.25gm Ivpb (Pre-Docked)) 50 mls @ 100 mls/hr IVPB Q8H-IV BRAULIO PRN Reason: Protocol Last Admin: 11/03/16 09:55 Dose: 100 mls/hr Metoprolol Succinate (Toprol Xl -) 50 mg PO DAILY [facility] Last Admin: 11/03/16 09:27 Dose: 50 mg Ranolazine (Ranexa -) 1,000 mg PO BID [facility] Last Admin: 11/03/16 09:27 Dose: 1,000 mg Rosuvastatin Calcium (Crestor -) 20 mg PO DAILY [facility] Last Admin: 11/03/16 09:27 Dose: 20 mg - Objective Vital Signs: Vital Signs Temperature 97.3 F L 11/03/16 14:00 Pulse Rate 80 11/03/16 14:00 Respiratory Rate 18 11/03/16 08:55 Blood Pressure 113/64 11/03/16 08:55 O2 Sat by Pulse Oximetry (%) 96 11/03/16 09:00 Constitutional: Yes: No Distress, Calm Cardiovascular: Yes: Regular Rate and Rhythm Respiratory: Yes: Regular, CTA Bilaterally Gastrointestinal: Yes: Normal Bowel Sounds, Soft Musculoskeletal: Yes: WNL Extremities: Yes: WNL Wound/Incision: Yes: Dressing Dry and Intact Neurological: Yes: Alert, Oriented Psychiatric: Yes: Alert, Oriented Labs: CBC, BMP 11/02/16 06:05 11/02/16 06:05 INR, PTT INR 1.16 (0.82-1.09) H 11/01/16 13:45 Assessment/Plan 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
--- NOTE | 2016-11-03 18:30 | PN ---
Progress Note, Physician History of Present Illness: doing well - Current Medication List Current Medications: Active Medications Acetaminophen (Tylenol -) 650 mg PO Q6H PRN PRN Reason: FEVER OR PAIN Ascorbic Acid (Vitamin C -) 1,000 mg PO DAILY [facility] Last Admin: 11/03/16 09:25 Dose: 1,000 mg Aspirin (Asa -) 81 mg PO DAILY [facility] Last Admin: 11/03/16 09:25 Dose: 81 mg Diphenhydramine HCl (Benadryl -) 25 mg PO HS PRN Last Admin: 11/02/16 21:43 Dose: 25 mg Ferrous Sulfate (Feosol -) 325 mg PO TID [facility] Last Admin: 11/03/16 14:42 Dose: 325 mg Finasteride (Proscar -) 5 mg PO DAILY [facility] Last Admin: 11/03/16 09:30 Dose: Not Given Folic Acid (Folic Acid -) 0.5 mg PO DAILY [facility] Last Admin: 11/03/16 09:25 Dose: 0.5 mg Sodium Chloride (Normal Saline -) 1,000 mls @ 100 mls/hr IV ASDIR [facility] Last Admin: 11/01/16 23:02 Dose: 100 mls/hr Piperacillin Sod/Tazobactam Sod (Zosyn 2.25gm Ivpb (Pre-Docked)) 50 mls @ 100 mls/hr IVPB Q8H-IV BRAULIO PRN Reason: Protocol Last Admin: 11/03/16 17:55 Dose: 100 mls/hr Metoprolol Succinate (Toprol Xl -) 50 mg PO DAILY [facility] Last Admin: 11/03/16 09:27 Dose: 50 mg Ranolazine (Ranexa -) 1,000 mg PO BID [facility] Last Admin: 11/03/16 09:27 Dose: 1,000 mg Rosuvastatin Calcium (Crestor -) 20 mg PO DAILY [facility] Last Admin: 11/03/16 09:27 Dose: 20 mg - Objective Vital Signs: Vital Signs Temperature 97.3 F L 11/03/16 14:00 Pulse Rate 80 11/03/16 14:00 Respiratory Rate 18 11/03/16 08:55 Blood Pressure 113/64 11/03/16 08:55 O2 Sat by Pulse Oximetry (%) 96 11/03/16 09:00 Constitutional: Yes: No Distress HENT: Yes: Atraumatic Neck: Yes: Supple Cardiovascular: Yes: Regular Rate and Rhythm Respiratory: Yes: CTA Bilaterally Gastrointestinal: Yes: Normal Bowel Sounds Extremities: Yes: WNL Wound/Incision: Yes: Dressing Dry and Intact Neurological: Yes: Alert, Oriented Labs: CBC, BMP 11/02/16 06:05 11/02/16 06:05 INR, PTT INR 1.16 (0.82-1.09) H 11/01/16 13:45 Problem List - Problems (1) Perianal abscess Assessment/Plan: on iv abx surgery consult Code(s): K61.0 - ANAL ABSCESS (2) CAD (coronary artery disease) Code(s): I25.10 - ATHSCL HEART DISEASE OF [place] CORONARY ARTERY W/O ANG PCTRS (3) HLD (hyperlipidemia) Assessment/Plan: on meds Code(s): E78.5 - HYPERLIPIDEMIA, UNSPECIFIED (4) HTN (hypertension) Code(s): I10 - ESSENTIAL (PRIMARY) HYPERTENSION (5) Sacral decubitus ulcer, stage IV Code(s): L89.154 - PRESSURE ULCER OF [place]CR[place] REGION, STAGE 4 Assessment/Plan dc in am switch to po
[2016-11-04] MEDS: PIPERACILLIN/TAZOB 2.25 GM 50 ML IVPB SCH ×2 (01:50→10:19)
[2016-11-04] MEDS: FERROUS SO4 325 MG TABLET (FP) PO SCH (05:55)
[2016-11-04] MEDS ORDERED: RANOLAZINE E.R. 500 MG TABLET (FP) ONE ×2 (10:11→10:14)
[2016-11-04] MEDS ORDERED: ROSUVASTATIN CA 10 MG TABLET (FP) ONE (10:13)
[2016-11-04] MEDS: METOPROLOL SUCCINATE 50 MG TAB.SR.24H (FP) PO SCH (10:18)
[2016-11-04] MEDS: ASCORBIC ACID 500 MG TABLET (FP) PO SCH (10:19)
[2016-11-04] MEDS: ASPIRIN 81 MG CHEWABLE TABLETS PO SCH (10:20)
[2016-11-04] MEDS: ROSUVASTATIN CA 20 MG TABLET (FP) PO SCH (10:20)
[2016-11-04] MEDS: RANOLAZINE E.R. 1,000 MG TABLET (FP) PO SCH (10:24)
[2016-11-04] MEDS: FINASTERIDE 5 MG TABLET (FP) PO SCH (10:24)
[2016-11-04] MEDS: FOLIC ACID 1 MG TABLET (FP) PO SCH (10:24)
[2016-11-04 13:33] VITALS: BP 119/67; PULSE 66; TEMP 98
--- NOTE | 2016-11-04 16:37 | DS ---
Physical Examination Vital Signs: Vital Signs Temperature 98 F 11/04/16 09:00 Pulse Rate 66 11/04/16 09:00 Respiratory Rate 20 11/04/16 09:00 Blood Pressure 119/67 11/04/16 09:00 O2 Sat by Pulse Oximetry (%) 98 11/04/16 09:00 Labs: CBC, BMP 11/02/16 06:05 11/02/16 06:05 Discharge Summary Reason For Visit: COMPLICATION OF SURGICAL PROCEDURE - Instructions Diet, Activity, Other Instructions: see surgery next week pt already making appointment Disposition: VNS/HOME HEALTH CARE - Home Medications Comprehensive Discharge Medication List: Ambulatory Orders Metoprolol Succinate [Toprol Xl] 50 mg PO DAILY 01/23/16 Nitroglycerin Patch [Nitro-Dur Patch -] 1 each TD DAILY 01/23/16 Ranolazine [Ranexa] 1 tab PO BID 01/23/16 Rosuvastatin Calcium [Crestor] 20 mg PO DAILY 01/23/16 Ferrous Sulfate 1 tab PO TID 05/26/16 Ascorbate Calcium [Vitamin C] 1,000 mg PO DAILY 09/24/16 Aspirin [ASA -] 81 mg PO DAILY 09/24/16 Folic Acid 0.4 mg PO DAILY 09/24/16 Finasteride 5 mg PO DAILY 10/20/16 Amoxicillin/Potassium Clav [Augmentin 875-125 Tablet] 1 each PO BID #28 tablet 11/03/16 [facility]
== END 2016-11-04 13:05 | disposition home health service (06) | DRG 393 ==
LOC: JER 13:06 → JERBED 17:23 → J6S 19:57
PROVIDERS: ADMIT Internal Medicine; ATTEND Internal Medicine
DX: K60.3 Anal fistula (principal); L89.154 Pressure ulcer of sacral region, stage 4; T81.89XD Other complications of procedures, not elsewhere classified, subsequent encounter; Y83.8 Other surgical procedures as the cause of abnormal reaction of the patient, or of later complication, without mention of misadventure at the time of the procedure; I25.119 Atherosclerotic heart disease of native coronary artery with unspecified angina pectoris; Z95.1 Presence of aortocoronary bypass graft; Z95.5 Presence of coronary angioplasty implant and graft; E78.5 Hyperlipidemia, unspecified; Z85.46 Personal history of malignant neoplasm of prostate; D64.9 Anemia, unspecified; Z96.653 Presence of artificial knee joint, bilateral
CPT/HCPCS: 36415; 72194-TC; 80053; 85025; 85610; 86850; 86900; 86901; 93005; 93010; 99284-25; Q9967

== ENCOUNTER 2018-03-15 12:38 | Emergency (ER) | payer OTHER, BC ==
[2018-03-15 12:44] VITALS: BP 120/60; PULSE 95; TEMP 98; BMI 24.3
--- NOTE | 2018-03-15 12:55 | PDOC ---
History of Present Illness - History of Present Illness Initial Comments: This patient is a 87 year old male with PMHx of chronic sacral ulcer, CAD s/p 2c CABG 2005 and stent 2013, HTN, HLD, prostate CA s/p prostatectomy, double vision, who was BIBA with s/p mechanical slip and fall. Patient state that he and his went shopping at [employer] today. He states that he was leaving the store and went to turn around to call his when he slipped and fell banging the back of his head. Patient states that he has double vision at baseline after a previous fall a couple months ago, sustaining R orbital broken bones. He states that he has seen multiple opthamologists who are unable to correct the issue. Patient states that he normally takes a baby aspirin but denies taking any other blood thinners. Tetanus is up-to-date. Denies loc, chest pain, shortness of breath, abdominal pain, numbness or tingling, neck pain. Surgical Hx: CABG and coronary stent, hernia repair, left knee surgery, right knee replacement (Jan 18 2018), prostatectomy 2000, debridement of sacral decubitus ulcer with a skin flap closure 09/28/16. Social History: lives at home with Smoking: past smoker pack a day for 5 years as a teenager Alcohol: denies Drugs: denies Family History: AAA father, stomach CA mother. Allergies: NKDA <Eloisa Louis - Last Filed: 03/15/18 14:15> <Marian Garcia - Last Filed: 03/15/18 14:44> - General Chief Complaint: Injury Stated Complaint: INJURY Time Seen by Provider: 03/15/18 12:54 Past History <Eloisa Louis - Last Filed: 03/15/18 14:15> - Past Medical History Anemia: Yes Asthma: No Cancer: No Cardiac Disorders: Yes (angina) CVA: No COPD: No CHF: No Dementia: No Diabetes: No GI Disorders: No Disorders: No HTN: Yes Hypercholesterolemia: Yes Liver Disease: No Seizures: No Thyroid Disease: No - Surgical History Abdominal Surgery: Yes (HERNIA) Appendectomy: No Cardiac Surgery: Yes (2005 double bypass) Cholecystectomy: No Lung Surgery: No Neurologic Surgery: No Orthopedic Surgery: Yes (left knee partial replacement,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) - Suicide/Smoking/Psychosocial Hx Smoking History: Never smoked Have you smoked in the past 12 months: No Information on smoking cessation initiated: No Hx Alcohol Use: No Drug/Substance Use Hx: No Substance Use Type: None <Marian Garcia - Last Filed: 03/15/18 14:44> - Past Medical History Allergies/Adverse Reactions: Allergies Allergy/AdvReac Type Severity Reaction Status Date / Time No Known Allergies Allergy Verified 11/01/16 13:22 Home Medications: Ambulatory Orders Metoprolol Succinate [Toprol Xl] 50 mg PO DAILY 01/23/16 Nitroglycerin Patch [Nitro-Dur Patch -] 1 each TD DAILY 01/23/16 Ranolazine [Ranexa] 1 tab PO BID 01/23/16 Rosuvastatin Calcium [Crestor] 20 mg PO DAILY 01/23/16 Ferrous Sulfate 1 tab PO TID 05/26/16 Ascorbate Calcium [Vitamin C] 1,000 mg PO DAILY 09/24/16 Aspirin [ASA -] 81 mg PO DAILY 09/24/16 Folic Acid 0.4 mg PO DAILY 09/24/16 Finasteride 5 mg PO DAILY 10/20/16 Review of Systems - Review of Systems Comments:: GENERAL/CONSTITUTIONAL: No fever or chills. No weakness. HEAD, EYES, EARS, NOSE AND THROAT: No change in vision. No ear pain or discharge. No sore throat. CARDIOVASCULAR: No chest pain or shortness of breath. RESPIRATORY: No cough, wheezing, or hemoptysis. GASTROINTESTINAL: No nausea, vomiting, diarrhea or constipation. GENITOURINARY: No dysuria, frequency, or change in urination. MUSCULOSKELETAL: No joint or muscle swelling or pain. No neck or back pain. SKIN: +gash to occipital lobe. +skin tear on left forearm. NEUROLOGIC: No headache, vertigo, loss of consciousness, or change in strength/ sensation. ENDOCRINE: No increased thirst. No abnormal weight change. HEMATOLOGIC/LYMPHATIC: No anemia, easy bleeding, or history of blood clots. ALLERGIC/IMMUNOLOGIC: No hives or skin allergy. <Eloisa Louis - Last Filed: 03/15/18 14:15> *Physical Exam - Vital Signs Last Vital Signs Temp Pulse Resp BP Pulse Ox 98 F 95 H 16 120/60 100 03/15/18 12:40 03/15/18 12:40 03/15/18 12:40 03/15/18 12:40 03/15/18 12:40 - Physical Exam Comments: GENERAL: Awake, alert, and fully oriented, in no acute distress HEAD: EYES: PERRLA, EOMI, sclera anicteric, conjunctiva clear ENT: Auricles normal inspection, hearing grossly normal, nares patent, oropharynx clear without exudates. Moist mucosa NECK: Normal ROM, supple, no lymphadenopathy, JVD, or masses LUNGS: Breath sounds equal, clear to auscultation bilaterally. No wheezes, and no crackles HEART: Regular rate and rhythm, normal S1 and S2, no murmurs, rubs or gallops ABDOMEN: Soft, nontender, normoactive bowel sounds. No guarding, no rebound. No masses EXTREMITIES: Normal range of motion, no edema. No clubbing or cyanosis. No cords, erythema, or tenderness NEUROLOGICAL: Cranial nerves II through XII grossly intact. Normal speech, normal gait SKIN: Small abrasion to left forearm. Warm, Dry, normal turgor. <Eloisa Louis - Last Filed: 03/15/18 14:15> - Vital Signs Last Vital Signs Temp Pulse Resp BP Pulse Ox 98 F 95 H 16 120/60 100 03/15/18 12:40 03/15/18 12:40 03/15/18 12:40 03/15/18 12:40 03/15/18 12:40 <Marian Garcia - Last Filed: 03/15/18 14:44> ED Treatment Course - RADIOLOGY Radiograph Interpretation: Head CT Impression: Moderate atrophy and periventricular chronic microvascular ischemic disease changes. No gross acute intracranial pathology is identified. Mild to moderate soft tissue swelling of the scalp/hematoma over right side of the occipital bone , superiorly. Reported By: Minh Aleman MD 03/15/18 1412 <Eloisa Louis - Last Filed: 03/15/18 14:15> Medical Decision Making - Medical Decision Making 03/15/18 14:11 a/p: 87yo male with a mechanical fall -closed head injury -lac to back of head -no neck pain -tetanus utd -abrasion to L arm -neuro intact -will send for head ct - on baby asa -will need lac repair -most likely dc to home 03/15/18 14:[address] negative lac repaired by the resident fatmata in place no active bleeding pt is stable for d/c to home <Marian Garcia - Last Filed: 03/15/18 14:44> *DC/Admit/Observation/Transfer - Attestations Scribe Attestion: 03/15/18 13:41 Documentation prepared by Eloisa Louis, acting as medical technologist prn for Marian Garcia DO. <Eloisa Louis - Last Filed: 03/15/18 14:15> - Discharge Dispostion Decision to Admit order: No - Attestations Physician Attestion: 03/15/18 14:14 I, Dr. Marian Garcia DO, attest that this document has been prepared under my direction and personally reviewed by me in its entirety. I further attest, that it accurately reflects all work, treatment, procedures and medical decision -making performed by me. <Marian Garcia - Last Filed: 03/15/18 14:44> Diagnosis at time of Disposition: Scalp laceration, Closed head injury, Accident due to mechanical fall without injury - Discharge Dispostion Disposition: HOME Condition at time of disposition: Stable - Referrals Referrals: Glen Verma MD [Staff Physician] - - Patient Instructions Printed Discharge Instructions: How to Prevent Falls, DI for Closed Head Injury , DI for Laceration Repair of the Scalp Additional Instructions: Please keep the wound clean and dry. Please apply topical antibiotic cream to the wound. Please have the wound checked by your PMD in 2-3 days. Please have the fatmata removed in 1 week. Please return to the ED with any further concerns or complaints.
[2018-03-15] MEDS ORDERED: LIDOCAINE HCL 1%, 10 MG/ML (50 mL VIAL) SQ ONE (14:16)
[2018-03-15] MEDS ORDERED: LIDOCAINE HCL 1%, 10 MG/ML (20ML VIAL) ONE (14:18)
== END 2018-03-15 15:02 | disposition home or self-care (01) ==
LOC: JER 12:38
PROC: 0HQ0XZZ Repair Scalp Skin, External Approach (ICD-10-PCS; principal; 2018-03-15)
DX: S01.01XA Laceration without foreign body of scalp, initial encounter (principal); S09.90XA Unspecified injury of head, initial encounter; W01.0XXA Fall on same level from slipping, tripping and stumbling without subsequent striking against object, initial encounter; Y93.89 Activity, other specified; Y92.512 Supermarket, store or market as the place of occurrence of the external cause; I10 Essential (primary) hypertension; E78.5 Hyperlipidemia, unspecified; Z85.46 Personal history of malignant neoplasm of prostate; Z95.5 Presence of coronary angioplasty implant and graft; Z95.1 Presence of aortocoronary bypass graft; I25.10 Atherosclerotic heart disease of native coronary artery without angina pectoris; Z87.891 Personal history of nicotine dependence
CPT/HCPCS: 70450-TC; 99283-25